=== PATIENT | female | born 1935 | race Caucasian/White ===

== ENCOUNTER 2017-01-11 13:39 | Emergency (ER) | payer OTHER, MEDICARE ==
[2017-01-11 13:49] VITALS: BP 111/60; PULSE 72; TEMP 98.1; BMI 27.5
--- NOTE | 2017-01-11 15:25 | PDOC ---
History of Present Illness - General Chief Complaint: Injury Stated Complaint: INJURY Time Seen by Provider: 01/11/17 14:20 History Source: Patient Exam Limitations: No Limitations - History of Present Illness Initial Comments: 01/11/17 15:40 81 yr female tripped walking up steps last night and hit her left upper arm on the railing, her left hip, left knee and left side ribs. no LOC. pt denies SOB no chest pain . 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 Pt is ambulatory steady gait. Occurred: reports: yesterday Severity: reports: mild Past History - Past Medical History Allergies/Adverse Reactions: Allergies Allergy/AdvReac Type Severity Reaction Status Date / Time amoxicillin trihydrate Allergy Intermediate Rash Verified 01/11/17 13:47 [From Amoxil] levofloxacin [From Levaquin] Allergy Intermediate Rash Verified 01/11/17 13:47 sulfamethoxazole Allergy Intermediate Hives Verified 01/11/17 13:47 [From Bactrim] trimethoprim [From Bactrim] Allergy Intermediate Hives Verified 01/11/17 13:47 codeine [Codeine] AdvReac Mild Nausea Verified 01/11/17 13:47 cefuroxime axetil AdvReac Nausea Verified 01/11/17 13:47 [From Ceftin] Home Medications: Ambulatory Orders Aspirin [ASA -] 81 mg PO DAILY 10/17/14 Bupropion HCl [Wellbutrin -] 150 mg PO DAILY 10/17/14 Calcium Carbonate/Vitamin D3 [Calcium 600 + Vit D 200 Tablet] 1 each PO DAILY Lactobacillus Acidophilus [Probiotic] 1 cap PO DAILY 10/17/14 Levothyroxine [Synthroid -] 1 tab PO DAILY 10/17/14 Metoprolol Succinate [Toprol Xl] 25 mg PO DAILY 10/17/14 Raloxifene HCl [Evista] 1 tab PO DAILY 10/17/14 Tramadol HCl 50 mg PO TID PRN 10/17/14 Ranitidine [Zantac -] 150 mg PO BID #0 tablet 10/18/14 Cholecalciferol (Vitamin D3) [Vitamin D3 -] 1 unit PO DAILY 01/02/16 Multivitamins [Tab-A-Vit -] 1 tab PO DAILY 01/02/16 Pantoprazole Sodium [Protonix] 40 mg PO DAILY 01/02/16 Anemia: No Asthma: No Cancer: No Cardiac Disorders: Yes CVA: No COPD: No CHF: No Dementia: No Diabetes: No GI Disorders: Yes (H.PYLORI GASTRITIS,DIVERTICULOSIS) Disorders: No HTN: Yes Hypercholesterolemia: No Liver Disease: No Seizures: No Thyroid Disease: Yes (HYPOTHYROIDISM) - Surgical History Abdominal Surgery: No Appendectomy: Yes Cardiac Surgery: Yes (CARDIAC CATHERIZATION-NEGATIVE) Cholecystectomy: No Lung Surgery: No Neurologic Surgery: No Orthopedic Surgery: No - Immunization History Immunization Up to Date: Yes - Suicide/Smoking/Psychosocial Hx Smoking Status: No Smoking History: Never smoked Have you smoked in the past 12 months: No Number of Cigarettes Smoked Daily: 0 Hx Alcohol Use: No Drug/Substance Use Hx: No Substance Use Type: None Hx Substance Use Treatment: No Trauma Specific PMHX - Complaint Specific PMHX Arthritis: No Back Injury: Yes Review of Systems - Review of Systems Able to Perform ROS?: Yes Is the patient limited Tajik proficient: No Constitutional: No: Symptoms Reported HEENTM: No: Symptoms Reported Respiratory: No: Symptoms reported Cardiac (ROS): No: Symptoms Reported ABD/GI: No: Symptoms Reported : No: Symptoms Reported Musculoskeletal: Yes: Symptoms Reported *Physical Exam - Vital Signs Last Vital Signs Temp Pulse Resp BP Pulse Ox 98.1 F 72 18 111/60 98 01/11/17 13:47 01/11/17 13:47 01/11/17 13:47 01/11/17 13:47 01/11/17 13:47 - Physical Exam General Appearance: Yes: Nourished, Appropriately Dressed HEENT: positive: EOMI, [place], Normal ENT Inspection, TMs Normal, Pharynx Normal Neck: positive: Supple Respiratory/Chest: positive: Lungs Clear, Normal Breath Sounds. negative: Chest Tender, Decreased Breath Sounds, Rhonchi, Stridor, Wheezing Cardiovascular: positive: Regular Rhythm, Regular Rate Gastrointestinal/Abdominal: positive: Normal Bowel Sounds, Soft Musculoskeletal: positive: Normal Inspection Extremity: positive: Normal Capillary Refill, Normal Inspection, Normal Range of Motion, Tender (left upper arm humeral head, limited ROM due to pain, nv intact no crepitus ) Integumentary: positive: Normal Color, Dry, Warm Neurologic: positive: Fully Oriented, Alert, Normal Mood/Affect, Normal Response , Motor Strength 5/5 Procedures - Splinting Sling: Yes ED Treatment Course - RADIOLOGY Radiology Studies Ordered: Category Date Time Status HIP & PELVIS-LEFT [RAD] Stat Radiology 01/11/17 14:42 Completed HUMERUS-LEFT [RAD] Stat Radiology 01/11/17 14:42 Completed KNEE 3 POS-LEFT [RAD] Stat Radiology 01/11/17 14:42 Completed RIBS-LEFT SIDE [RAD] Stat Radiology 01/11/17 14:42 Completed Medical Decision Making - Medical Decision Making 01/11/17 15:42 cc: trip and fall yesterday no LOC no dizzyness will xray r/o fracture sling to the left arm *DC/Admit/Observation/Transfer Diagnosis at time of Disposition: Contusion Qualifiers: Encounter type: initial encounter Contusion area: upper arm Laterality: left Qualified Code(s): S40.022A - Contusion of left upper arm, initial encounter - Discharge Dispostion Disposition: HOME Condition at time of disposition: Good - Referrals Referrals: Dario Varner MD [Primary Care Provider] - - Patient Instructions Additional Instructions: follow with your doctor in 1-2 days for follow up apply ice to the shoulder every 2hrs for 20 minutes take pain medicine as directed you can also apply a topical cream such as Icy Hot this is helpful with muscle soreness and pain
== END 2017-01-11 15:25 | disposition home or self-care (01) ==
LOC: JERFT 13:39
DX: S40.022A Contusion of left upper arm, initial encounter (principal); W10.8XXA Fall (on) (from) other stairs and steps, initial encounter; Y93.89 Activity, other specified; Y92.018 Other place in single-family (private) house as the place of occurrence of the external cause; Y99.8 Other external cause status; I10 Essential (primary) hypertension; E03.9 Hypothyroidism, unspecified; Z87.19 Personal history of other diseases of the digestive system; Z98.61 Coronary angioplasty status
CPT/HCPCS: 71101-TC; 73060-TC-LT; 73523-TC; 73562-TC-LT; 99281-25

== ENCOUNTER 2017-11-06 16:17 | Emergency (ER) | payer OTHER, MEDICARE ==
--- NOTE | 2017-11-06 16:45 | PDOC ---
Rapid Medical Evaluation Chief Complaint: Eye Problem Time Seen by Provider: 11/06/17 16:43 Medical Evaluation: Allergies Allergy/AdvReac Type Severity Reaction Status Date / Time amoxicillin trihydrate Allergy Intermediate Rash Verified 11/06/17 16:42 [From Amoxil] levofloxacin [From Levaquin] Allergy Intermediate Rash Verified 11/06/17 16:42 sulfamethoxazole Allergy Intermediate Hives Verified 11/06/17 16:42 [From Bactrim] trimethoprim [From Bactrim] Allergy Intermediate Hives Verified 11/06/17 16:42 codeine [Codeine] AdvReac Mild Nausea Verified 11/06/17 16:42 cefuroxime axetil AdvReac Nausea Verified 11/06/17 16:42 [From Ceftin] 11/06/17 16:43 I have performed a brief in-person evaluation of this patient. The patient presents with a chief complaint of: Double vision to R eye suddenly last night, since improved but eye "feels funny". No eye pain, JONES, dizziness, n/ v or focal weakness. H/o CAD, s/p b/l cataract surgery >5 years ago Pertinent physical exam findings:? R lid ptosis, no conjunctivitis erythema or hard eye on palpation, EOMI, non-focal I have ordered the following:CTH/labs The patient will proceed to the ED for further evaluation Discharge Disposition - Diagnosis Double vision - Referrals - Patient Instructions - Post Discharge Activity
[2017-11-06 16:46] VITALS: BMI 27.3
[2017-11-06 17:24] LABS: BASO % 0.7 % (0-2.0); EOS % 2.5 % (0-4.5); HEMATOCRIT 34.3 % (32.4-45.2); HEMOGLOBIN 11.8 GM/dL (10.7-15.3); MCH 32.7 pg (25.7-33.7); MCHC 34.4 g/dl (32.0-36.0); MEAN CELL VOLUME 95.2 fl (80-96); MEAN PLT VOLUME 7.7 fl (7.5-11.1); MONO % 10.2 % (3.8-10.2); NEUT % 71.6 % (42.8-82.8); PLATELET COUNT 228 K/MM3 (134-434); RDW 12.8 % (11.6-15.6); WHITE BLOOD COUNT 6.7 K/mm3 (4.0-10.0)
--- NOTE | 2017-11-06 17:47 | PDOC ---
History of Present Illness - General Chief Complaint: Eye Problem Stated Complaint: EYE PROBLEMS Time Seen by Provider: 11/06/17 16:43 - History of Present Illness Initial Comments: The patient is an 82F with a history of HTN, CAD, and b/l cataract surgery >5y ago who presents for evaluation for right sided painless vertical diplopia which was sudden in onset last night. She states that this has never happened before and had resolved when she woke up this morning. She endorses feeling right eye drooping sensation but denies ptosis. She denies ocular pain, blurry vision, JONES, trauma/fall, fevers/chills, or recent sick contacts. She denies a history of stroke or IA. She also denies DM or history of blood clots Her PCP is Dr. Varner. Her Cariologist is Dr. Sanz. 11/06/17 17:44 Past History - Past Medical History Allergies/Adverse Reactions: Allergies Allergy/AdvReac Type Severity Reaction Status Date / Time amoxicillin trihydrate Allergy Intermediate Rash Verified 11/06/17 16:42 [From Amoxil] levofloxacin [From Levaquin] Allergy Intermediate Rash Verified 11/06/17 16:42 sulfamethoxazole Allergy Intermediate Hives Verified 11/06/17 16:42 [From Bactrim] trimethoprim [From Bactrim] Allergy Intermediate Hives Verified 11/06/17 16:42 codeine [Codeine] AdvReac Mild Nausea Verified 11/06/17 16:42 cefuroxime axetil AdvReac Nausea Verified 11/06/17 16:42 [From Ceftin] Home Medications: Ambulatory Orders Aspirin [ASA -] 81 mg PO DAILY 10/17/14 Bupropion HCl [Wellbutrin -] 150 mg PO DAILY 10/17/14 Lactobacillus Acidophilus [Probiotic] 1 cap PO DAILY 10/17/14 Levothyroxine [Synthroid -] 1 tab PO DAILY 10/17/14 Tramadol HCl 50 mg PO TID PRN 10/17/14 Ranitidine [Zantac -] 150 mg PO BID #0 tablet 10/18/14 Cholecalciferol (Vitamin D3) [Vitamin D3 -] 1 unit PO DAILY 01/02/16 Ascorbic Acid [Vitamin C] 500 mg PO DAILY 11/06/17 Gabapentin 100 mg PO TID 11/06/17 Multivit-Min/Iron/Folic/Lutein [Centrum Silver Women Tablet] 1 each PO DAILY Anemia: No Asthma: No Cancer: No Cardiac Disorders: Yes (H/O SOB, CHRONIC COUGH) CVA: No COPD: No CHF: No Dementia: No Diabetes: No GI Disorders: Yes (H.PYLORI GASTRITIS,DIVERTICULOSIS) Disorders: No HTN: Yes Hypercholesterolemia: No Liver Disease: No Seizures: No Thyroid Disease: Yes (HYPOTHYROIDISM) - Surgical History Abdominal Surgery: No Appendectomy: Yes Cardiac Surgery: Yes (CARDIAC CATHERIZATION-NEGATIVE) Cholecystectomy: No Lung Surgery: No Neurologic Surgery: No Orthopedic Surgery: No - Immunization History Immunization Up to Date: Yes - Suicide/Smoking/Psychosocial Hx Smoking Status: No Smoking History: Never smoked Have you smoked in the past 12 months: No Number of Cigarettes Smoked Daily: 0 Hx Alcohol Use: Yes Drug/Substance Use Hx: No Substance Use Type: None Hx Substance Use Treatment: No Review of Systems - Review of Systems Comments:: GENERAL/CONSTITUTIONAL: No fever or chills. No weakness. HEAD, EYES, EARS, NOSE AND THROAT: per HPI and no ear pain or discharge. No sore throat. CARDIOVASCULAR: No chest pain or shortness of breath RESPIRATORY: No cough, wheezing, or hemoptysis. GASTROINTESTINAL: No nausea, vomiting, diarrhea or constipation. GENITOURINARY: No dysuria, frequency, or change in urination. MUSCULOSKELETAL: No joint or muscle swelling or pain. No neck or back pain. SKIN: No rash NEUROLOGIC: No headache, vertigo, loss of consciousness, or change in strength/ sensation. ENDOCRINE: No increased thirst. No abnormal weight change HEMATOLOGIC/LYMPHATIC: No anemia, easy bleeding, or history of blood clots. ALLERGIC/IMMUNOLOGIC: No hives or skin allergy. 11/06/17 18:09 *Physical Exam - Vital Signs Last Vital Signs Temp Pulse Resp BP Pulse Ox 98.7 F 85 18 117/62 94 L 11/06/17 16:43 11/06/17 16:43 11/06/17 16:43 11/06/17 16:43 11/06/17 16:43 - Physical Exam Comments: GENERAL: Awake, alert, and fully oriented, in no acute distress HEAD: No signs of trauma, normocephalic, atraumatic EYES: PERRLA, EOMI, sclera anicteric, conjunctiva clear, Vision acuity is: OD 20 /20 OS: 20/15; no nystagmus ENT: Hearing grossly normal, nares patent, oropharynx clear without exudates. Moist mucosa NECK: Normal ROM, supple LUNGS: No distress, speaks full sentences, clear to auscultation bilaterally HEART: Regular rate and rhythm, normal S1 and S2, no murmurs appreciated, peripheral pulses normal and equal bilaterally. ABDOMEN: Soft, nontender, normoactive bowel sounds. No guarding, no rebound. EXTREMITIES : Normal inspection, Normal range of motion, no edema. No clubbing or cyanosis. NEUROLOGICAL: Cranial nerves II through XII intact. Normal speech, normal gait , no focal sensorimotor deficits SKIN: Warm, Dry 11/06/17 18:06 Procedures - Bedside Ultrasound Bedside Ultrasound: Ocular ED Treatment Course - LABORATORY CBC & Chemistry Diagram: 11/06/17 17:13 11/06/17 17:13 - ADDITIONAL ORDERS Additional order review: 11/06/17 17:13 RBC 3.60 MCV 95.2 MCHC 34.4 RDW 12.8 MPV 7.7 Neutrophils % 71.6 Lymphocytes % 15.0 Monocytes % 10.2 Eosinophils % 2.5 Basophils % 0.7 - RADIOLOGY Radiology Studies Ordered: Category Date Time Status BRAIN CTA [CT] Stat CT Scan 11/06/17 17:38 Ordered Medical Decision Making - Medical Decision Making The patient is an 82F with a history of HTN, CAD, and b/l cataract sx >5y ago who presents for evaluation of new, sudden onset, painless, R-sided vertical diplopia that had resolved when she awoke this morning. She denies any associated symptoms and states her vision is normal for her today. Her PCP is Dr. Varner. Her Cariologist is Dr. Sanz. Ddx: lens dislocation, TIA, embolic artery/vein occlusion, cataracts, astigmatism; less likely retinal detachment ED Course: CMP, CT Head, CT head angio Patient normotensive, and currently asymptomatic. 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 Schaffer and discussed the clinical presentation, work-up and ED course thus far. 11/06/17 19:30 *DC/Admit/Observation/Transfer Diagnosis at time of Disposition: Double vision - Discharge Dispostion Disposition: HOME Condition at time of disposition: Stable Decision to Admit order: No - Referrals Referrals: Aiden Fuller MD [Staff Physician] - - Patient Instructions Printed Discharge Instructions: Transient Ischemic Attack, DI for Visual Field Disturbances - Post Discharge Activity
[2017-11-06 17:55] LABS: ALBUMIN 3.5 g/dl (3.4-5.0); ALK PHOS 52 U/L (45-117); ANION GAP 6 (8-16); BILIRUBIN,TOTAL 0.3 mg/dL (0.2-1.0); BLOOD UREA NITROGEN 33 mg/dL (7-18); CALCIUM 9.3 mg/dL (8.5-10.1); CHLORIDE 109 mmol/L (98-107); CO2 29 mmol/L (21-32); CREATININE 1.3 mg/dL (0.55-1.02); GLUCOSE,RANDOM 114 mg/dL (74-106); POTASSIUM 4.4 mmol/L (3.5-5.1); SGOT/AST 21 U/L (15-37); SGPT/ALT 29 U/L (12-78); SODIUM 144 mmol/L (136-145)
[2017-11-06] MEDS ORDERED: SODIUM CHLORIDE 0.9% 500 ML INFUS.BAG IV ONE (18:54)
--- NOTE | 2017-11-06 20:05 | PDOC ---
*Physical Exam - Vital Signs Last Vital Signs Temp Pulse Resp BP Pulse Ox 98.7 F 85 18 117/62 94 L 11/06/17 16:43 11/06/17 16:43 11/06/17 16:43 11/06/17 16:43 11/06/17 16:43 ED Treatment Course - LABORATORY CBC & Chemistry Diagram: 11/06/17 17:13 11/06/17 17:13 - ADDITIONAL ORDERS Additional order review: Laboratory Results 11/06/17 17:13 Sodium 144 Potassium 4.4 Chloride 109 H Carbon Dioxide 29 Anion Gap 6 L BUN 33 H Creatinine 1.3 H Creat Clearance w eGFR 39.02 Random Glucose 114 H Calcium 9.3 Total Bilirubin 0.3 AST 21 ALT 29 Alkaline Phosphatase 52 Total Protein 6.0 L Albumin 3.5 11/06/17 17:13 RBC 3.60 MCV 95.2 MCHC 34.4 RDW 12.8 MPV 7.7 Neutrophils % 71.6 Lymphocytes % 15.0 Monocytes % 10.2 Eosinophils % 2.5 Basophils % 0.7 - Medications Given in the ED: ED Medications Discontinued Medications Generic Name Dose Route Start Last Admin Trade Name Freq PRN Reason Stop Dose Admin Sodium Chloride 500 ml 11/06/17 18:54 11/06/17 19:15 Normal Saline - IV 11/06/17 18:55 500 ml ONCE ONE Administration Medical Decision Making - Medical Decision Making 11/06/17 20:05 Care taken over from Dr. Lee for further evaluation. 11/06/17 20:16 CT/CTA head negative for acute process. Discussed patient with Dr. Fuller ( neurology) who will evaluate outpatient. Discharging to home. *DC/Admit/Observation/Transfer Diagnosis at time of Disposition: Double vision - Discharge Dispostion Disposition: HOME Condition at time of disposition: Stable - Referrals Referrals: Aiden Fuller MD [Staff Physician] - - Patient Instructions Printed Discharge Instructions: Transient Ischemic Attack, DI for Visual Field Disturbances Additional Instructions: Please call Dr. Fuller's office on Thursday to make an appointment for follow- up. Return to ER if any fever, chills, return of double vision, altered mental status, or other concerning symptoms. - Post Discharge Activity
[2017-11-06 20:32] VITALS: BP 143/71; PULSE 72; TEMP 98.5
--- NOTE | 2017-11-06 21:51 | PDOC ---
Attending Attestation - Resident Resident Name: Alli Lee - ED Attending Attestation I have performed the following: I have examined & evaluated the patient, The case was reviewed & discussed with the resident, I agree w/resident's findings & plan, Exceptions are as noted - HPI HPI: 11/06/17 21:49 Ms. Sofia Morris is an 82-year-old female with past medical history of hypothyroidism, HTN (No medication use), GERD, compression fracture of the spine and CAD (awaiting stents) presents to the emergency department for resolved transient right diplopia yesterday. The patient reports a brief 15-20 minute episode of monocular R. eye diplopia last night while watching television. The patient states the episode was accompanied by the sensation of eye drooping, Denies a headache, dizziness or vertigo. The patient reports she has an appointment with an Stone Spreader Operator Dr. Villavicencio Thursday (11/09/2017). Denies history of stroke. Denies tremors. Denies eye pain. Denies Tinnitus. Denies vision loss. Denies history of blood clot. Denies fever, chest pain or shortness of breath. Denies nausea or vomiting. Allergies: amoxicillin trihydrate, levofloxacin, sulfamethoxazole, trimethoprim , codeine, and cefuroxime axetil Surgical history: Bilateral cataract surgery (5 years ago) and Negative cardiac cath. PCP: Dr. Varner Small Engine Trainer: Dr. Sanz Opthamologist: Dr. Dubose. - Physicial Exam PE: 11/06/17 21:49 General: Well appearing, awake and alert, NAD. HEENT: No nystagmus. (+) No diplopia on exam. (+) Visual acuity test: R. eye: 20 /15. L. eye: 20/20. NCAT, PERRL, EOMI, clear conjunctiva, anicteric, moist mucus membranes, clear oropharynx, no oral lesions.. Neck: neck supple, FROM Resp: CTAB, normal and even respirations, no respiratory distress CVS: RRR, no murmurs, 2+ peripheral pulses throughout, no peripheral edema Abdomen: soft, NTND, no peritoneal signs. Back: nontender, normal inspection and ROM MSK: no edema, OWEN x4, ROM intact. No clubbing or cyanosis. normal bulk and tone. Neuro: Alert, oriented to person time and place. CN II-XII grossly intact. Strength prox and distally 5/5 throughout. Sensation grossly intact to light touch. OWEN x4. No cerebellar signs, no dysmetria, bilateral finger to nose and heel to valdes equal and symmetric. Speech clear. Skin: warm and well perfused, cap refill <2 sec, normal color; no rash - Medical Decision Making 11/06/17 21:45 A portion of this note was documented by scribe services under my direction. I have reviewed the details of the note, within reason, and agree with the documentation with the following case summary and management plan written by me. MDM: Sofia Morris 82 YOF with PMHx HTN, hypothyroidism presenting with transient right monocular diplopia yesterday lasting 15 minutes; no fevers, weakness, tinnitis, dizziness, JONES, cp, sob, n/v. DDx. CVA, peripheral diplopia, monocular diplopia. Retinal detachment Bedside ocular US for diplopia, right eye sagittal and TV views; no retinal or vitreous detachment, normal EOMI. impression: no acute findings Neuro cs for possible TIA/transient diplopia but visual acuity intact currently. CTA to r/o ischemia or vascular pathology. Has ophtho followup scheduled with Dr. Dubose on Thursday, for evaluation of monocular diplopia since resolved. CT/CTA head negative for acute process. Discussed patient with Dr. Fuller ( neurology) who will evaluate outpatient. Discharging to home. Dr. Fuller neuro outpatient followup provided. return precautions discussed. ok for discharge, well appearing and no acute neuro deficits noted, gait stable, no cerebellar signs and CT results discussed.. 11/06/17 21:49
== END 2017-11-06 20:40 | disposition home or self-care (01) ==
LOC: JER 16:17
PROC: 4A07X0Z Measurement of Visual Acuity, External Approach (ICD-10-PCS; principal; 2017-11-06)
DX: H53.2 Diplopia (principal); I10 Essential (primary) hypertension; Z98.61 Coronary angioplasty status; E03.9 Hypothyroidism, unspecified; Z87.19 Personal history of other diseases of the digestive system; Z88.8 Allergy status to other drugs, medicaments and biological substances
CPT/HCPCS: 36415; 70450-TC; 70496-TC; 80053; 85025; 99173; 99282-25

== ENCOUNTER 2017-12-26 17:09 | Emergency (ER) | payer OTHER, MEDICARE ==
[2017-12-26 17:16] VITALS: BP 162/68; PULSE 68; TEMP 98; BMI 27.9
--- NOTE | 2017-12-26 17:39 | PDOC ---
History of Present Illness - General Chief Complaint: Injury Stated Complaint: FALL, ELBOW AND HEAD PAIN Time Seen by Provider: 12/26/17 17:39 History Source: Patient Exam Limitations: No Limitations - History of Present Illness Initial Comments: 12/26/17 20:13 Ms. Black is a 82 yo F with a hx of hypothyroidism, HTN, GERD, CAD, and a hx of compression fracture in thoracic spine presents to the emergency department s /p mechanical fall at 3:45 pm. She states she was ironing in the kitchen and sat down backwards with the lulu sliding from underneath. She struck the right occipital portion of her head on tile floor and landed on her left side. She denies pain throughout her body except having a headache and new tenderness in the C7-T1 region. Denies having fevers, chills, palpitations, chest pain, SOB, nausea, vomiting and LOC prior and post the mechanical fall. Past History - Past Medical History Allergies/Adverse Reactions: Allergies Allergy/AdvReac Type Severity Reaction Status Date / Time amoxicillin trihydrate Allergy Intermediate Rash Verified 12/26/17 17:16 [From Amoxil] levofloxacin [From Levaquin] Allergy Intermediate Rash Verified 12/26/17 17:16 sulfamethoxazole Allergy Intermediate Hives Verified 12/26/17 17:16 [From Bactrim] trimethoprim [From Bactrim] Allergy Intermediate Hives Verified 12/26/17 17:16 codeine [Codeine] AdvReac Mild Nausea Verified 12/26/17 17:16 cefuroxime axetil AdvReac Nausea Verified 12/26/17 17:16 [From Ceftin] Home Medications: Ambulatory Orders Aspirin [ASA -] 81 mg PO DAILY 10/17/14 Bupropion HCl [Wellbutrin -] 150 mg PO DAILY 10/17/14 Lactobacillus Acidophilus [Probiotic] 1 cap PO DAILY 10/17/14 Levothyroxine [Synthroid -] 1 tab PO DAILY 10/17/14 Tramadol HCl 50 mg PO TID PRN 10/17/14 Ranitidine [Zantac -] 150 mg PO BID #0 tablet 10/18/14 Cholecalciferol (Vitamin D3) [Vitamin D3 -] 1 unit PO DAILY 01/02/16 Ascorbic Acid [Vitamin C] 500 mg PO DAILY 11/06/17 Gabapentin 100 mg PO TID 11/06/17 Multivit-Min/Iron/Folic/Lutein [Centrum Silver Women Tablet] 1 each PO DAILY Clopidogrel Bisulfate [Plavix] 75 mg PO DAILY 12/26/17 Nebivolol HCl [Bystolic] 5 mg PO BID 12/26/17 Anemia: No Asthma: No Cancer: No Cardiac Disorders: Yes (H/O SOB, CHRONIC COUGH) CVA: No COPD: No CHF: No Dementia: No Diabetes: No GI Disorders: Yes (H.PYLORI GASTRITIS,DIVERTICULOSIS) Disorders: No HTN: Yes Hypercholesterolemia: No Liver Disease: No Seizures: No Thyroid Disease: Yes (HYPOTHYROIDISM) - Surgical History Abdominal Surgery: No Appendectomy: Yes Cardiac Surgery: Yes (CARDIAC CATHERIZATION-NEGATIVE) Cholecystectomy: No Lung Surgery: No Neurologic Surgery: No Orthopedic Surgery: No - Immunization History Immunization Up to Date: Yes - Suicide/Smoking/Psychosocial Hx Smoking Status: No Smoking History: Never smoked Have you smoked in the past 12 months: No Number of Cigarettes Smoked Daily: 0 Hx Alcohol Use: Yes Drug/Substance Use Hx: No Substance Use Type: None Hx Substance Use Treatment: No Review of Systems - Review of Systems Able to Perform ROS?: Yes Constitutional: No: Chills, Diaphoresis, Fever HEENTM: No: Eye Pain, Recent change in vision, Ear Pain, Nose Pain, Throat Pain , Mouth Pain Respiratory: No: Cough, Shortness of Breath, SOB with Exertion, Hemoptysis Cardiac (ROS): No: Chest Pain, Edema, Irregular Heart Rate, Lightheadedness, Palpitations, Syncope, Chest Tightness ABD/GI: No: Constipated, Diarrhea, Nausea, Rectal Bleeding, Vomiting, Abdominal cramping, Tarry Stools : No: Burning, Dysuria, Flank Pain, Hematuria Musculoskeletal: Yes: Back Pain, Neck Pain. No: Joint Pain, Muscle Pain Integumentary: No: Bruising, Dryness, Erythema, Rash Neurological: Yes: Headache. No: Numbness, Paresthesia, Seizure, Tingling, Tremors, Weakness, Unsteady Gait, Ataxia, Dizziness Psychiatric: No: Stressors Endocrine: No: Increased Hunger Hematologic/Lymphatic: No: Anemia *Physical Exam - Vital Signs Last Vital Signs Temp Pulse Resp BP Pulse Ox 98 F 68 18 162/68 97 12/26/17 17:12 12/26/17 17:12 12/26/17 17:12 12/26/17 17:12 12/26/17 17:12 - Physical Exam General Appearance: Yes: Nourished, Appropriately Dressed HEENT: positive: EOMI, BERLIN, Normal ENT Inspection, Normal Voice, Symmetrical, TMs Normal, Pharynx Normal. negative: TM Bulging Neck: positive: Trachea midline. negative: Lymphadenopathy (R), Lymphadenopathy (L) Respiratory/Chest: positive: Lungs Clear, Normal Breath Sounds. negative: Chest Tender, Respiratory Distress, Accessory Muscle Use, Rales, Stridor, Wheezing, Hyperresonant, Dullness Cardiovascular: positive: Regular Rhythm, Regular Rate, S1, S2. negative: JVD, Systolic Murmur Vascular Pulses: Dorsalis-Pedis (R): 3+, Doralis-Pedis (L): 3+ Gastrointestinal/Abdominal: positive: Normal Bowel Sounds. negative: Tender Lymphatic: negative: Adenopathy Musculoskeletal: positive: Normal Inspection, Vertebral Tenderness (C7-T1.). negative: CVA Tenderness, Decreased Range of Motion Extremity: positive: Normal Capillary Refill, Normal Inspection, Normal Range of Motion, Pelvis Stable. 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 There is no evidence of acute fracture. Initially, she had no tenderness to palpation in the vertebral column except for C7-T1. No lumbar-sacral tenderness. On reassessment she states she feels fine and her neuro exam continued to be within normal limits. She agreed to follow up with her primary medical doctor. Dispo: DC to home *DC/Admit/Observation/Transfer Diagnosis at time of Disposition: Fall Qualifiers: Encounter type: initial encounter Qualified Code(s): W19.XXXA - Unspecified fall, initial encounter - Discharge Dispostion Disposition: HOME Decision to Admit order: No - Referrals Referrals: Dario Varner MD [Primary Care Provider] - - Patient Instructions Printed Discharge Instructions: How to Prevent Falls Additional Instructions: You have been seen in the emergency department after a fall that occurred in your household. Your CT head, neck, and back were negative for an acute fracture and head bleed. Please follow up with your primary medical doctor within 24-36 hours for additional care and follow up. This is important to your care and it is not considered complete until this is done. Please return to the emergency department if you experience new concerning symptoms such as worsening headaches, changing in vision, and weakness. Thank you. - Post Discharge Activity
--- NOTE | 2017-12-26 20:30 | PDOC ---
Attending Attestation - Resident Resident Name: Jose Tillman - ED Attending Attestation I have performed the following: I have examined & evaluated the patient, The case was reviewed & discussed with the resident, I agree w/resident's findings & plan, Exceptions are as noted - HPI HPI: 12/26/17 20:30 82 F with hypothyroidism, HTN, GERD, compression fracture of the spine and CAD, presenting to ED after slipping and falling. Pt states that she tripped, falling backwards and hitting the back of her head against the stove. Pt denies LOC. Pt states that she was able to get up on her own. Endorses some mild upper back pain but otherwise feels well. Pt denies CP/SOB/lightheadedness prior to falling. - Physicial Exam PE: 12/26/17 20:33 GENERAL: Awake, alert, and fully oriented, in no acute distress. HEAD: No signs of trauma EYES: PERRLA, EOMI, sclera anicteric, conjunctiva clear ENT: Auricles normal inspection, hearing grossly normal, nares patent, oropharynx clear without exudates. Moist mucosa NECK: Nontender, no stepoffs, Normal ROM, supple, no lymphadenopathy, JVD, or masses LUNGS: Breath sounds equal, clear to auscultation bilaterally. No wheezes, and no crackles HEART: Regular rate and rhythm, normal S1 and S2, no murmurs, rubs or gallops ABDOMEN: Soft, nontender, normoactive bowel sounds. No guarding, no rebound. No masses BACK: no midline TTP, no stepoffs EXTREMITIES: Normal range of motion, no edema. No clubbing or cyanosis. No cords, erythema, or tenderness NEUROLOGICAL: Cranial nerves II through XII intact. 5/5 strength and sensation in all extremities, Normal speech, normal gait, normal cerebellar function SKIN: Warm, Dry, normal turgor, no rashes or lesions noted. - Medical Decision Making 12/26/17 20:34 82 F with back pain after mechanical fall. - CT head/c-spine - CT T spine 12/26/17 20:35 CTs unremarkable other than known compression fx at T10. Pt ambulatory in ED without issue. Pt states she feels well, has no pain at this time. BP slightly elevated in ED. Discussed with pt, who states she has cardiology f/ u next week to address this issue. Pt is well appearing, with normal vitals. Clinically stable for DC at this time. I discussed the physical exam findings, ancillary test results and final diagnoses with the patient. I answered all of the patient's questions. The patient was satisfied with the care received and felt comfortable with the discharge plan and treatment plan. The patient agrees to follow up with the primary care physician within 24-72 hours.
== END 2017-12-26 20:44 | disposition home or self-care (01) ==
LOC: JER 17:09
DX: G44.319 Acute post-traumatic headache, not intractable (principal); W01.198A Fall on same level from slipping, tripping and stumbling with subsequent striking against other object, initial encounter; Y93.E4 Activity, ironing; Y92.010 Kitchen of single-family (private) house as the place of occurrence of the external cause; Y99.8 Other external cause status; I25.10 Atherosclerotic heart disease of native coronary artery without angina pectoris; Z98.61 Coronary angioplasty status; I10 Essential (primary) hypertension; K21.9 Gastro-esophageal reflux disease without esophagitis; E03.9 Hypothyroidism, unspecified; Z87.81 Personal history of (healed) traumatic fracture; Z88.8 Allergy status to other drugs, medicaments and biological substances
CPT/HCPCS: 70450-TC; 72125-TC; 72128-TC; 99282-25

== ENCOUNTER 2017-12-29 13:41 | Emergency (ER) | payer OTHER, MEDICARE ==
[2017-12-29 13:49] VITALS: PULSE 68; TEMP 98.1; BMI 27.7
--- NOTE | 2017-12-29 14:27 | PDOC ---
History of Present Illness - General Chief Complaint: Injury Stated Complaint: INJURY Time Seen by Provider: 12/29/17 14:20 - History of Present Illness Initial Comments: 12/29/17 14:41 The patient is an 82 year old female with a history of HTN, CAD s/p stenting on plavix who presents for evaluation following a fall. The patient reports that she was walking down a step driveway while it was raining and slipped and fell backwards striking her head on the ground. She reports bleeding from her scalp currently reports a mild headache and some right elbow pain. She denies LOC or other injuries. She otherwise denies fevers, chills, neck pain, chest pain, SOB , nausea, vomiting, abdominal pain, numbness, tingling, weakness, or changes with urination or bowel movements. Past History - Past Medical History Allergies/Adverse Reactions: Allergies Allergy/AdvReac Type Severity Reaction Status Date / Time amoxicillin trihydrate Allergy Intermediate Rash Verified 12/29/17 13:45 [From Amoxil] levofloxacin [From Levaquin] Allergy Intermediate Rash Verified 12/29/17 13:45 sulfamethoxazole Allergy Intermediate Hives Verified 12/29/17 13:45 [From Bactrim] trimethoprim [From Bactrim] Allergy Intermediate Hives Verified 12/29/17 13:45 codeine [Codeine] AdvReac Mild Nausea Verified 12/29/17 13:45 cefuroxime axetil AdvReac Nausea Verified 12/29/17 13:45 [From Ceftin] Home Medications: Ambulatory Orders Aspirin [ASA -] 81 mg PO DAILY 10/17/14 Bupropion HCl [Wellbutrin -] 150 mg PO DAILY 10/17/14 Lactobacillus Acidophilus [Probiotic] 1 cap PO DAILY 10/17/14 Levothyroxine [Synthroid -] 1 tab PO DAILY 10/17/14 Tramadol HCl 50 mg PO TID PRN 10/17/14 Ranitidine [Zantac -] 150 mg PO BID #0 tablet 10/18/14 Cholecalciferol (Vitamin D3) [Vitamin D3 -] 1 unit PO DAILY 01/02/16 Ascorbic Acid [Vitamin C] 500 mg PO DAILY 11/06/17 Gabapentin 100 mg PO TID 11/06/17 Multivit-Min/Iron/Folic/Lutein [Centrum Silver Women Tablet] 1 each PO DAILY Clopidogrel Bisulfate [Plavix] 75 mg PO DAILY 12/26/17 Nebivolol HCl [Bystolic] 5 mg PO BID 12/26/17 Anemia: No Asthma: No Cancer: No Cardiac Disorders: Yes (H/O SOB, CHRONIC COUGH) CVA: No COPD: No CHF: No Dementia: No Diabetes: No GI Disorders: Yes (H.PYLORI GASTRITIS,DIVERTICULOSIS) Disorders: No HTN: Yes Hypercholesterolemia: No Liver Disease: No Seizures: No Thyroid Disease: Yes (HYPOTHYROIDISM) - Surgical History Abdominal Surgery: No Appendectomy: Yes Cardiac Surgery: Yes (CARDIAC CATHERIZATION-NEGATIVE) Cholecystectomy: No Lung Surgery: No Neurologic Surgery: No Orthopedic Surgery: No - Immunization History Immunization Up to Date: Yes - Suicide/Smoking/Psychosocial Hx Smoking Status: No Smoking History: Never smoked Have you smoked in the past 12 months: No Number of Cigarettes Smoked Daily: 0 Information on smoking cessation initiated: No Hx Alcohol Use: Yes Drug/Substance Use Hx: No Substance Use Type: None Hx Substance Use Treatment: No Review of Systems - Review of Systems Comments:: 12/29/17 14:45 Constitutional: No fevers, chills, fatigue, malaise HEENT: No Rhinorrhea, nasal congestion, visual changes Cardiovascular: No chest pain, syncope, palpitations, lightheadedness Respiratory: No Cough, SOB, Hemoptysis, Gastrointestinal: No Abdominal pain, Nausea, Vomiting, Constipation, Diarrhea, Melena Genitourinary: No Dysuria, Frequency, Urgency, Hesitancy, Hematuria, Flank pain Musculoskeletal: No Myalgia, arthralgia Skin: No rashes, itching, bruising, pallor Neurologic: Headache. No Dizziness, Numbness, Weakness, or Tingling Psychiatric: No Hallucinations. No SI or HI *Physical Exam - Vital Signs Last Vital Signs Temp Pulse Resp BP Pulse Ox 98.1 F 68 16 193/65 95 12/29/17 13:46 12/29/17 13:46 12/29/17 13:46 12/29/17 13:46 12/29/17 13:46 - Physical Exam Comments: 12/29/17 14:46 General Appearance: Nourished. No Apparent Distress HEENT: EOMI, BERLIN. Hematoma to the posterior scalp with blood noted to the scalp but no definable laceration. No Pharyngeal Erythema, Tonsillar Exudate, Tonsillar Erythema Neck: No Cervical Lymphadenopathy Respiratory/Chest: Lungs Clear, Normal Breath Sounds. No Crackles, Rales, Rhonchi, Wheezing Cardiovascular: Regular Rhythm, Regular Rate. No Murmur, Gallops, Rubs Gastrointestinal/Abdominal: Normal Bowel Sounds, Soft. No Guarding, Rebound, Tenderness Musculoskeletal: No CVA Tenderness Extremity: Full ROM of the right elbow. Sensation to light touch and temperature intact. 2+ radial pulses bilaterally. 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 Normal Finger to Nose and Heel to Becker Medical Decision Making - Medical Decision Making 12/29/17 14:48 The patient is an 82 year old female with a history of HTN, CAD s/p stenting on plavix who presents for evaluation following a fall. Differential includes but is not limited to: Fracture, Contusion, Intracranial process. Given the patient 's history and physical exam, we will obtain a head and cervical CT and an elbow plain film to evaluate further. We will continue to monitor and reassess while here in the ED. 12/29/17 17:[address] are unremarkable as read by our radiologist. The patient' s BP has improved to 189/78 with her home medication. Elbow plain film is unremarkable. The patient states that she has follow up scheduled tomorrow morning. We are comfortable discharging the patient home with primary care provider follow up. We discussed the results, plan, return precautions and proper wound care with the patient who voiced understanding and is agreeable with the plan. *DC/Admit/Observation/Transfer Diagnosis at time of Disposition: Fall Qualifiers: Encounter type: initial encounter Qualified Code(s): W19.XXXA - Unspecified fall, initial encounter - Discharge Dispostion Disposition: HOME Condition at time of disposition: Stable Decision to Admit order: No - Referrals Referrals: Dario Varner MD [Primary Care Provider] - - Patient Instructions Printed Discharge Instructions: DI for Post-traumatic Headache, DI for Abrasion Additional Instructions: Please return to the ER if you experience concerning or worsening symptoms including worsening difficulty breathing, weakness, or chest pain, fevers. Your imaging results were normal here in the ER. Your blood pressure was elevated here in the ED. Please continue to take your medication as directed and mention to your blood pressure management to your primary care provider. Please call to schedule a follow up appointment with your primary care provider within 2-3 days to discuss your ER visit and further management of your symptoms. - Post Discharge Activity
[2017-12-29] MEDS ORDERED: ACETAMINOPHEN 325 MG TABLET (FP) PO ONE (16:33)
--- NOTE | 2017-12-29 16:33 | PDOC ---
Attending Attestation - Resident Resident Name: Luis Manuel Dc - ED Attending Attestation I have performed the following: I have examined & evaluated the patient, The case was reviewed & discussed with the resident, I agree w/resident's findings & plan, Exceptions are as noted - HPI HPI: 12/29/17 16:29 82 F with h/o HTN, CAD s/p stent on plavix presenting to ED with head and elbow injury after slipping and falling. Pt states she was going up a wet driveway and slipped, landing backwards onto her elbow and head. Denies LOC. Now has pain in the top of her head. Denies N/V. Also has pain and bruising to her R elbow. Denies neck pain. Denies back pain. Denies CP/SOB. No abdominal pain. No hip or leg pain. - Physicial Exam PE: 12/29/17 16:30 "GENERAL: Awake, alert, and fully oriented, in no acute distress. HEAD: + abrasion to occiput, no laceration EYES: PERRLA, EOMI, sclera anicteric, conjunctiva clear ENT: Auricles normal inspection, hearing grossly normal, nares patent, oropharynx clear without exudates. Moist mucosa NECK: Nontender, no stepoffs, Normal ROM, supple, no lymphadenopathy, JVD, or masses LUNGS: Breath sounds equal, clear to auscultation bilaterally. No wheezes, and no crackles HEART: Regular rate and rhythm, normal S1 and S2, no murmurs, rubs or gallops ABDOMEN: Soft, nontender, normoactive bowel sounds. No guarding, no rebound. No masses EXTREMITIES: + ecchymosis and tenderness to R elbow, Normal range of motion, no edema. No clubbing or cyanosis. No cords, erythema, or tenderness NEUROLOGICAL: Cranial nerves II through XII intact. 5/5 strength and sensation in all extremities, Normal speech, normal gait, normal cerebellar function SKIN: Warm, Dry, normal turgor, no rashes or lesions noted." - Medical Decision Making 12/29/17 16:32 82 F with head injury and elbow pain s/p mechanical fall. Tdap up to date (last shot approx 3 years ago). Pt ambulatory in ED. - CT head/c-spine - XR R elbow Pt's vitals notable for elevated BP. Pt states she took her bystolic today. Denies CP/SOB. - Recheck vitals 12/29/17 16:59 Repeat BP still elevated Ordered home dose Bystolic. (Pt takes 5mg BID) 12/29/17 18:08 BP improving with home Bystolic. Pt to f/u with Dr. Sanz tomorrow in office. CT negative XR negative on my read Pt is well appearing. Clinically stable for DC at this time. I discussed the physical exam findings, ancillary test results and final diagnoses with the patient. I answered all of the patient's questions. The patient was satisfied with the care received and felt comfortable with the discharge plan and treatment plan. The patient agrees to follow up with the primary care physician within 24-72 hours.
[2017-12-29] MEDS ORDERED: ACETAMINOPHEN 325 MG TABLET (FP) ONE (16:37)
[2017-12-29] MEDS ORDERED: NEBIVOLOL 5 MG TABLET (FP) PO ONE (16:50)
[2017-12-29] MEDS ORDERED: BACITRACIN 15 GM TUBE TOPICAL OINTMENT TP ONE (18:00)
[2017-12-29] MEDS ORDERED: BACITRACIN 0.9 GM PACKET ONE (18:11)
[2017-12-29 18:30] VITALS: BP 189/78
== END 2017-12-29 18:25 | disposition home or self-care (01) ==
LOC: JER 13:41
DX: Z04.3 Encounter for examination and observation following other accident (principal); W18.39XA Other fall on same level, initial encounter; Y93.89 Activity, other specified; Y92.89 Other specified places as the place of occurrence of the external cause; I10 Essential (primary) hypertension; I25.10 Atherosclerotic heart disease of native coronary artery without angina pectoris; Z95.5 Presence of coronary angioplasty implant and graft; Z79.01 Long term (current) use of anticoagulants; E03.9 Hypothyroidism, unspecified
CPT/HCPCS: 70450-TC; 72125-TC; 73070-TC-RT-FY; 99281-25

== ENCOUNTER 2018-08-30 13:50 | Emergency (ER) | payer OTHER, MEDICARE ==
--- NOTE | 2018-08-30 15:26 | PDOC ---
History of Present Illness - General Chief Complaint: Injury Stated Complaint: FELL Time Seen by Provider: 08/30/18 15:13 History Source: Patient Exam Limitations: No Limitations - History of Present Illness Initial Comments: 08/30/18 15:16 83YOF with HTN, CAD s/p stent on plavix, hypothyroidism, and chronic back pain ( takes Tramadol) who p/w worsening hip pain and intermittent lightheadedness since suffering a ground-level fall three days ago. She notes having been going down the stairs on her electric stair climber when she accidentally stepped out of the chair before it was finished going down. She fell from about one step and landed forcefully on her right hip but also bumped the right back of her head. She denies losing consciousness, or any n/v, new vision change, new n/t/w , etc. However, since that time she has been intermittently lightheaded which is abnormal for her. She additionally has been having right lateral hip pain on weight bearing (none at rest). She has been taking her normal Tramadol and also Tylenol since the fall. Past History - Past Medical History Allergies/Adverse Reactions: Allergies Allergy/AdvReac Type Severity Reaction Status Date / Time amoxicillin trihydrate Allergy Intermediate Rash Verified 12/29/17 13:45 [From Amoxil] levofloxacin [From Levaquin] Allergy Intermediate Rash Verified 12/29/17 13:45 sulfamethoxazole Allergy Intermediate Hives Verified 12/29/17 13:45 [From Bactrim] trimethoprim [From Bactrim] Allergy Intermediate Hives Verified 12/29/17 13:45 codeine [Codeine] AdvReac Mild Nausea Verified 12/29/17 13:45 cefuroxime axetil AdvReac Nausea Verified 12/29/17 13:45 [From Ceftin] Home Medications: Ambulatory Orders Aspirin [ASA -] 81 mg PO DAILY 10/17/14 Bupropion HCl [Wellbutrin -] 150 mg PO DAILY 10/17/14 Lactobacillus Acidophilus [Probiotic] 1 cap PO DAILY 10/17/14 Levothyroxine [Synthroid -] 1 tab PO DAILY 10/17/14 Tramadol HCl 50 mg PO TID PRN 10/17/14 Ranitidine [Zantac -] 150 mg PO BID #0 tablet 10/18/14 Cholecalciferol (Vitamin D3) [Vitamin D3 -] 1 unit PO DAILY 01/02/16 Multivit-Min/Iron/Folic/Lutein [Centrum Silver Women Tablet] 1 each PO DAILY Clopidogrel Bisulfate [Plavix] 75 mg PO DAILY 12/26/17 Nebivolol HCl [Bystolic] 5 mg PO BID 12/26/17 Anemia: No Asthma: No Cancer: No Cardiac Disorders: Yes (H/O SOB, CHRONIC COUGH) CVA: No COPD: No CHF: No Dementia: No Diabetes: No GI Disorders: Yes (H.PYLORI GASTRITIS,DIVERTICULOSIS) Disorders: No HTN: Yes Hypercholesterolemia: No Liver Disease: No Seizures: No Thyroid Disease: Yes (HYPOTHYROIDISM) - Surgical History Abdominal Surgery: No Appendectomy: Yes Cardiac Surgery: Yes (CARDIAC CATHERIZATION-NEGATIVE) Cholecystectomy: No Lung Surgery: No Neurologic Surgery: No Orthopedic Surgery: No - Immunization History Immunization Up to Date: Yes - Suicide/Smoking/Psychosocial Hx Smoking Status: No Smoking History: Never smoked Have you smoked in the past 12 months: No Number of Cigarettes Smoked Daily: 0 Hx Alcohol Use: Yes Drug/Substance Use Hx: No Substance Use Type: None Hx Substance Use Treatment: No Trauma Specific PMHX - Complaint Specific PMHX Arthritis: No Back Injury: Yes Review of Systems - Review of Systems Able to Perform ROS?: Yes Comments:: GEN: no fever, chills, malaise, generalized weakness, or weight change HEENT: no ear pain, sore throat, vision change, or eye pain CV: no chest pain, palpitations, lightheadedness, syncope, or edema RESP: no cough, wheezing, or SOB GI: no abdominal pain, nausea, vomiting, diarrhea, constipation, or white/black/ bloody stool : no dysuria, hematuria, incontinence, retention, bleeding, or discharge MSK: hip pain, otherwise no neck/back pain or other MSK pain NEURO: mild intermittent lightheadedness, no headache, seizure, vertigo, numbness, tingling, or focal weakness PSYCH: no substance use, no behavior change SKIN: bruising, no jaundice, no rash ROS otherwise negative except as noted in HPI *Physical Exam - Vital Signs 08/30/18 17:21 Initial Vital Signs Temp Pulse Resp BP Pulse Ox 98.1 F 71 18 169/77 100 08/30/18 15:10 08/30/18 15:10 08/30/18 15:10 08/30/18 15:10 08/30/18 15:10 - Physical Exam Comments: GENERAL: well-appearing, A/Ox4, no distress, answers questions appropriately, daughter at bedside HEENT: PERRLA, EOMI, moist mucous membranes NECK/BACK: no midline ttp, no spinal stepoff or deformity, no hematoma, full ROM , neck supple CARDIOVASCULAR: regular rate/rhythm, normal S1S2, no MGR, strong peripheral pulses, capillary refill <2 seconds, extremities wwp, no edema LUNGS/RESPIRATORY: no respiratory distress, CTAB GI/ABDOMEN: symmetric [id number], normoactive BS, soft, no ttp, no midline pulsatile masses : no CVA tenderness EXTREMITIES: mild right lateral hip swelling in the setting of extensive ecchymosis as noted no muscle atrophy, no acute deformity, no edema SKIN: warm and dry, no pallor, no jaundice, no rash, no bruising, no skin breakdown, no cuts, no lesions NEUROLOGICAL: GCS 15, CN II-XII grossly intact, 5/5 strength proximally and distally, no facial droop ED Treatment Course - LABORATORY CBC & Chemistry Diagram: 08/30/18 16:30 08/30/18 16:30 Medical Decision Making - Medical Decision Making 08/30/18 15:13 Elderly female patient p/w GLF several days ago with subsequent hip pain which has been worsening. Initial Vital Signs Temp Pulse Resp BP Pulse Ox 98.1 F 169 H 18 169/77 100 08/30/18 15:10 08/30/18 15:10 08/30/18 15:10 08/30/18 15:10 08/30/18 15:10 Exam: As noted in Physical Exam section. DDX IBNLT: hip/pelvis/femur fxr, hip dislocation, thigh hematoma, compartment syndrome, sprain/strain, contusion, etc. W/U ordered: XR hip/pelvis/femur/knee CBCD CMP Cardiac Panel Coags T&S UA UCx EKG CXR TX ordered: IV Ofirmev. NPO until further notice. XR Right HipPlavis: No bony abnormality, nothing acute. XR Right Hand/Wrist: Nothing acute CT Head/C-Spine: Nothing acute Laboratory Tests 08/30/18 08/30/1808/30/19 16:30 16:30 16:30 WBC 6.5 RBC 3.30 L Hgb 10.3 L Hct 31.9 L MCV 96.9 H MCH 31.3 MCHC 32.3 RDW 12.7 Plt Count 289 MPV 7.8 Absolute Neuts (auto) 4.6 Neutrophils % 69.7 Lymphocytes % 17.6 Monocytes % 10.5 H Eosinophils % 1.5 Basophils % 0.7 PT with INR 11.7 INR 1.05 PTT (Actin FS) 25.6 Sodium 141 Potassium 4.6 Chloride 108 H Carbon Dioxide 24 Anion Gap 9 BUN 33 H Creatinine 0.9 Est GFR (CKD-EPI)AfAm 67.57 Est GFR (CKD-EPI)NonAf 58.30 Random Glucose 85 Calcium 9.1 Total Bilirubin 1.0 AST 27 ALT 20 Alkaline Phosphatase 60 Creatine Kinase Troponin I Total Protein 6.0 L Albumin 3.8 08/30/18 08/30/18 16:30 16:30 WBC RBC Hgb Hct MCV MCH MCHC RDW Plt Count MPV Absolute Neuts (auto) Neutrophils % Lymphocytes % Monocytes % Eosinophils % Basophils % PT with INR INR PTT (Actin FS) Sodium Potassium Chloride Carbon Dioxide Anion Gap BUN Creatinine Est GFR (CKD-EPI)AfAm Est GFR (CKD-EPI)NonAf Random Glucose Calcium Total Bilirubin AST ALT Alkaline Phosphatase Creatine Kinase 32 Troponin I < 0.03 Total Protein Albumin Reassessment: Patient passes road test without need for a cane. She states she is feeling better and wants to go home. Daughter is present to take her home. The patient has canes and crutches at home. DISCHARGE The Pt has gotten significant relief of symptoms while in the ED. They are appropriate for discharge with close outpatient follow up. The Pt is comfortable with this plan and will follow up with their primary care provider in 1-3 days. Specific return precautions are discussed and they will come back to the ER if necessary. *DC/Admit/Observation/Transfer Diagnosis at time of Disposition: Fall from ground level Traumatic ecchymosis of right thigh Qualifiers: Encounter type: initial encounter Qualified Code(s): S70.11XA - Contusion of right thigh, initial encounter - Discharge Dispostion Disposition: HOME Condition at time of disposition: Good Decision to Admit order: No - Referrals Referrals: Dario Varner MD [Primary Care Provider] - - Patient Instructions Additional Instructions: You were seen in the ER for a fall, a hip injury, and a head injury. We did labs and imaging studies, and after our assessment, we do not believe you are having a medical emergency at this time, and we believe you are safe to go home. Please follow up with your primary care provider in 1-3 days. Call their clinic as soon as possible, tell them you were seen in the ER, and tell them you need an appointment. If you have any new or worsening symptoms, please come back to the ER at any time (24 hours a day). Use a cane or crutches as needed and weight bear as tolerated. If you are having severe or life threatening symptoms, or symptoms that make it unsafe to drive or have someone drive you, please call 911. - Post Discharge Activity
[2018-08-30 15:37] VITALS: BP 169/77; TEMP 98.1; BMI 25.7
[2018-08-30 15:59] VITALS: PULSE 71
--- NOTE | 2018-08-30 16:01 | PDOC ---
Attending Attestation - Resident Resident Name: Courtney Bellamy - ED Attending Attestation I have performed the following: I have examined & evaluated the patient, The case was reviewed & discussed with the resident, I agree w/resident's findings & plan, Exceptions are as noted - HPI HPI: 08/30/18 18:57 Reviewed Residents HPI - Physicial Exam PE: 08/30/18 18:58 Reviewed Residents PE - Medical Decision Making 08/30/18 19:24 Ankle fall with hip pain. No acute fracture dislocation noted on x-rays. Bruising to right hip. Patient able to a bili comfortably no longer feels dizzy lightheaded Patient will follow up with her primary care provider this week. Findings, the need for follow-up and strict return instructions discussed patient.
[2018-08-30 16:58] LABS: BASO % 0.7 % (0-2.0); EOS % 1.5 % (0-4.5); HEMATOCRIT 31.9 % (32.4-45.2); HEMOGLOBIN 10.3 GM/dl (10.7-15.3); LYMPH % 17.6 % (8-40); MCH 31.3 pg (25.7-33.7); MCHC 32.3 g/dl (32.0-36.0); MEAN CELL VOLUME 96.9 fl (80-96); MEAN PLT VOLUME 7.8 fl (7.5-11.1); MONO % 10.5 % (3.8-10.2); NEUT % 69.7 % (42.8-82.8); PLATELET COUNT 289 K/MM3 (134-434); RDW 12.7 % (11.6-15.6); WHITE BLOOD COUNT 6.5 K/mm3 (4.0-10.8)
[2018-08-30 17:01] LABS: ACTIVATED PTT 25.6 SECONDS (25.2-36.5)
[2018-08-30 17:03] LABS: ALBUMIN 3.8 g/dl (3.4-5.0); CALCIUM 9.1 mg/dl (8.5-10); CREATININE 0.9 mg/dl (0.55-1.3); POTASSIUM 4.6 mmol/L (3.5-5.1)
[2018-08-30 17:06] LABS: INR 1.05 (0.82-1.09); PROTHROMBIN TIME (PATIENT) 11.7 SEC (10.2-13.0)
== END 2018-08-30 17:38 | disposition home or self-care (01) ==
LOC: FER 13:50
DX: S70.11XA Contusion of right thigh, initial encounter (principal); W18.39XA Other fall on same level, initial encounter; Y93.89 Activity, other specified; Y92.009 Unspecified place in unspecified non-institutional (private) residence as the place of occurrence of the external cause; I10 Essential (primary) hypertension; I25.10 Atherosclerotic heart disease of native coronary artery without angina pectoris; Z95.5 Presence of coronary angioplasty implant and graft; Z79.01 Long term (current) use of anticoagulants; E03.9 Hypothyroidism, unspecified; G89.29 Other chronic pain
CPT/HCPCS: 36415; 70450-TC; 72125-TC; 73110-TC-RT-FY; 73130-TC-RT-FY; 73523-TC-FY; 80053; 82550; 84484; 85025; 85610; 85730; 99282-25

== ENCOUNTER 2019-01-27 16:30 | Observation (INO) | payer OTHER, MEDICARE ==
--- NOTE | 2019-01-27 16:38 | PDOC ---
Rapid Medical Evaluation Chief Complaint: Chest Pain Time Seen by Provider: 01/27/19 16:35 Medical Evaluation: Allergies Allergy/AdvReac Type Severity Reaction Status Date / Time amoxicillin trihydrate Allergy Intermediate Rash Verified 12/31/18 06:27 [From Amoxil] levofloxacin [From Levaquin] Allergy Intermediate Rash Verified 12/31/18 06:27 sulfamethoxazole Allergy Intermediate Hives Verified 12/31/18 06:27 [From Bactrim] trimethoprim [From Bactrim] Allergy Intermediate Hives Verified 12/31/18 06:27 codeine [Codeine] AdvReac Mild Nausea Verified 12/31/18 06:27 cefuroxime axetil AdvReac Nausea Verified 12/31/18 06:27 [From Ceftin] CT contrast AdvReac Uncoded 12/31/18 06:27 01/27/19 16:35 I have performed a brief in-person evaluation of this patient. The patient presents with a chief complaint of: chest pain/sob this morning with bp 170s, seen at [facility] urgent care, sent here for bloodwork. all symptoms have since subsided. no hx of ACS. Pertinent physical exam findings: well appearing, lungs ctab I have ordered the following: cardiac workup The patient will proceed to the ED for further evaluation. Discharge Disposition - Diagnosis Chest pain - Discharge Dispostion Condition at time of disposition: Stable - Referrals - Patient Instructions - Post Discharge Activity
[2019-01-27 17:13] LABS: BASO % 0.9 % (0-2.0); EOS % 0.4 % (0-4.5); HEMATOCRIT 37.5 % (32.4-45.2); HEMOGLOBIN 12.5 GM/dL (10.7-15.3); MCH 31.8 pg (25.7-33.7); MCHC 33.4 g/dl (32.0-36.0); MEAN CELL VOLUME 95.3 fl (80-96); MEAN PLT VOLUME 8.2 fl (7.5-11.1); MONO % 2.4 % (3.8-10.2); NEUT % 87.3 % (42.8-82.8); PLATELET COUNT 240 K/MM3 (134-434); RBC 3.93 M/mm3 (3.60-5.2); WHITE BLOOD COUNT 7.4 K/mm3 (4.0-10.0)
[2019-01-27 17:39] LABS: PROTHROMBIN TIME (PATIENT) 11.8 SEC (9.7-13.0)
[2019-01-27 17:43] LABS: ALBUMIN 3.9 g/dl (3.4-5.0); ALK PHOS 72 U/L (45-117); ANION GAP 9 MMOL/L (8-16); BILIRUBIN,TOTAL 0.7 mg/dL (0.2-1); BLOOD UREA NITROGEN 35.2 mg/dL (7-18); CALCIUM 9.4 mg/dL (8.5-10.1); CHLORIDE 106 mmol/L (98-107); CO2 27 mmol/L (21-32); CREATININE 1.2 mg/dL (0.55-1.3); GLUCOSE,RANDOM 148 mg/dL (74-106); MAGNESIUM 2.2 mg/dL (1.8-2.4); POTASSIUM 4.6 mmol/L (3.5-5.1); SGOT/AST 26 U/L (15-37); SGPT/ALT 30 U/L (13-61); SODIUM 143 mmol/L (136-145); TOT PROT 6.4 g/dl (6.4-8.2)
--- NOTE | 2019-01-27 17:55 | PDOC ---
History of Present Illness - General Chief Complaint: Chest Pain Stated Complaint: CHEST PAIN Time Seen by Provider: 01/27/19 16:35 Past History - Past Medical History Allergies/Adverse Reactions: Allergies Allergy/AdvReac Type Severity Reaction Status Date / Time amoxicillin trihydrate Allergy Intermediate Rash Verified 12/31/18 06:27 [From Amoxil] levofloxacin [From Levaquin] Allergy Intermediate Rash Verified 12/31/18 06:27 sulfamethoxazole Allergy Intermediate Hives Verified 12/31/18 06:27 [From Bactrim] trimethoprim [From Bactrim] Allergy Intermediate Hives Verified 12/31/18 06:27 codeine [Codeine] AdvReac Mild Nausea Verified 12/31/18 06:27 cefuroxime axetil AdvReac Nausea Verified 12/31/18 06:27 [From Ceftin] CT contrast AdvReac Uncoded 12/31/18 06:27 Home Medications: Ambulatory Orders Aspirin [ASA -] 81 mg PO DAILY 10/17/14 Bupropion HCl [Wellbutrin -] 150 mg PO DAILY 10/17/14 Lactobacillus Acidophilus [Probiotic] 1 cap PO DAILY 10/17/14 Levothyroxine [Synthroid -] 100 mcg PO DAILY 10/17/14 Tramadol HCl 50 mg PO TID PRN 10/17/14 Cholecalciferol (Vitamin D3) [Vitamin D3 -] 1 unit PO DAILY 01/02/16 Multivit-Min/Iron/Folic/Lutein [Centrum Silver Women Tablet] 1 each PO DAILY Nebivolol HCl [Bystolic] 5 mg PO HS 12/26/17 Atorvastatin Ca [Lipitor] 40 mg PO HS 12/27/18 Calcium Carbonate [Calcium] 600 mg PO DAILY 12/27/18 Valsartan [Diovan] 80 mg PO AM 12/27/18 Famotidine [Pepcid] 40 mg PO DAILY 01/27/19 Escitalopram Oxalate [Lexapro -] 10 mg PO DAILY 01/28/19 Ranitidine [Zantac -] 150 mg PO TID 01/28/19 Anemia: No Asthma: No Cancer: No Cardiac Disorders: Yes (hx of SOB,hx of CAD) CVA: No COPD: No CHF: No Dementia: No Diabetes: No GI Disorders: Yes (GERD) Disorders: No HTN: Yes Hypercholesterolemia: Yes Liver Disease: No Seizures: No Thyroid Disease: Yes (HYPOTHYROIDISM) - Surgical History Abdominal Surgery: No Appendectomy: Yes Cardiac Surgery: Yes (CARDIAC CATHERIZATION-NEGATIVE) Cholecystectomy: No Lung Surgery: No Neurologic Surgery: No Orthopedic Surgery: No - Immunization History Immunization Up to Date: Yes - Psycho Social/Smoking Cessation Hx Smoking Status: No Smoking History: Never smoked Have you smoked in the past 12 months: No Number of Cigarettes Smoked Daily: 0 Information on smoking cessation initiated: No Hx Alcohol Use: No Drug/Substance Use Hx: No Substance Use Type: None Hx Substance Use Treatment: No *Physical Exam - Vital Signs Last Vital Signs Temp Pulse Resp BP Pulse Ox 98.4 F 76 16 144/87 97 01/27/19 16:32 01/27/19 16:32 01/27/19 16:32 01/27/19 16:32 01/27/19 16:32 Heart Score/ECG Review - History History: Slightly suspicious - Electrocardiogram EKG: Normal - Age Age: >/= 65 - Risk Factors Risk Factors Heart Score: Yes Hx Hypercholesterolemia, Yes Hx Hypertension, Yes Positive family hx of cardiac disease Based on the list above the patient has:: >/=3 risk factors or Hx atherosclerotic disease - Troponin Troponin: </= normal limit - Score Heart Score - Total: 4 ED Treatment Course - LABORATORY CBC & Chemistry Diagram: 01/28/19 05:30 01/28/19 05:30 - ADDITIONAL ORDERS Additional order review: Laboratory Results 01/27/19 01/27/19 17:00 17:00 PT with INR 11.80 INR 1.00 Sodium 143 Potassium 4.6 Chloride 106 Carbon Dioxide 27 Anion Gap 9 BUN 35.2 H Creatinine 1.2 Est GFR (CKD-EPI)AfAm 47.72 Est GFR (CKD-EPI)NonAf 41.18 Random Glucose 148 H Calcium 9.4 Magnesium 2.2 Total Bilirubin 0.7 AST 26 ALT 30 Alkaline Phosphatase 72 Creatine Kinase 46 Troponin I < 0.02 Total Protein 6.4 Albumin 3.9 01/27/19 17:00 RBC 3.93 MCV 95.3 MCHC 33.4 RDW 13.0 MPV 8.2 Neutrophils % 87.3 H D Lymphocytes % 9.0 D Monocytes % 2.4 L Eosinophils % 0.4 D Basophils % 0.9 Medical Decision Making - Medical Decision Making HPI: 83yo F with PMH of HTN, HLD, CAD s/p stent presenting sent by urgent care for evaluation of chest pain and hypertension. Patient describes the pain as "pressure" and rates it 5-6/10. She was sleeping when it first occurred at 5am this morning and it was been intermittent, lasting about five minutes at at time. Never felt anything like this before. No associated nausea, vomiting, or diaphoresis. Had a stress test "a couple months ago" with unknown result. Had an ECHO "recently" with unknown results. BP has been trending high for the past 4-5 days, as high as 236 systolic. 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 No fevers or chills. ROS: Constitutional: no fever, no chills HEENT: no throat pain, no dysphagia Cardiovascular: +chest pain, no palpitations Respiratory: no cough, +shortness of breath Gastrointestinal: no abdominal pain, no nausea Genitourinary: no dysuria, no hematuria Musculoskeletal: no myalgia, no arthralgia Skin: no rash, no itching Neurologic: no headache, no weakness PE: General: Awake, alert, and fully oriented, in no acute distress Head: No signs of trauma Eyes: EOMI, sclera anicteric ENT: Moist mucus membranes Neck: Normal ROM, supple Lungs: Lungs clear, Normal breath sounds Cardio: Regular rhythm, S1 and S2 present Abdomen: Soft, nontender Extremities: Normal range of motion, Distal pulses present, No calf tenderness, No leg swelling SKIN: Warm, Dry, normal turgor Neurologic: Cranial nerves II through XII grossly intact. Normal speech ED Course/MDM: DDX including but not limited to ACS, PE, PNA, anemia, metabolic derangement Labs, EKG, CXR 01/27/19 17:54 EKG: rate 74, QTc 417, NSR, LVH CBC WBC 7.4 K/mm3 (4.0-10.0) 01/27/19 17:00 RBC 3.93 M/mm3 (3.60-5.2) 01/27/19 17:00 Hgb 12.5 GM/dL (10.7-15.3) 01/27/19 17:00 Hct 37.5 % (32.4-45.2) 01/27/19 17:00 MCV 95.3 fl (80-96) 01/27/19 17:00 MCH 31.8 pg (25.7-33.7) 01/27/19 17:00 MCHC 33.4 g/dl (32.0-36.0) 01/27/19 17:00 RDW 13.0 % (11.6-15.6) 01/27/19 17:00 Plt Count 240 K/MM3 (134-434) 01/27/19 17:00 MPV 8.2 fl (7.5-11.1) 01/27/19 17:00 Absolute Neuts (auto) 6.5 K/mm3 (1.5-8.0) 01/27/19 17:00 Neutrophils % 87.3 % (42.8-82.8) H D 01/27/19 17:00 Lymphocytes % 9.0 % (8-40) D 01/27/19 17:00 Monocytes % 2.4 % (3.8-10.2) L 01/27/19 17:00 Eosinophils % 0.4 % (0-4.5) D 01/27/19 17:00 Basophils % 0.9 % (0-2.0) 01/27/19 17:00 Nucleated RBC % 0 % (0-0) 01/27/19 17:00 No leukocytosis CMP Sodium 143 mmol/L (136-145) 01/27/19 17:00 Potassium 4.6 mmol/L (3.5-5.1) 01/27/19 17:00 Chloride 106 mmol/L (98-107) 01/27/19 17:00 Carbon Dioxide 27 mmol/L (21-32) 01/27/19 17:00 Anion Gap 9 MMOL/L (8-16) 01/27/19 17:00 BUN 35.2 mg/dL (7-18) H 01/27/19 17:00 Creatinine 1.2 mg/dL (0.55-1.3) 01/27/19 17:00 Est GFR (CKD-EPI)AfAm 47.72 01/27/19 17:00 Est GFR (CKD-EPI)NonAf 41.18 01/27/19 17:00 Random Glucose 148 mg/dL (74-106) H 01/27/19 17:00 Calcium 9.4 mg/dL (8.5-10.1) 01/27/19 17:00 Magnesium 2.2 mg/dL (1.8-2.4) 01/27/19 17:00 Total Bilirubin 0.7 mg/dL (0.2-1) 01/27/19 17:00 AST 26 U/L (15-37) 01/27/19 17:00 ALT 30 U/L (13-61) 01/27/19 17:00 Alkaline Phosphatase 72 U/L (45-117) 01/27/19 17:00 Creatine Kinase 46 U/L (26-192) 01/27/19 17:00 Troponin I < 0.02 ng/ml (0.00-0.05) 01/27/19 17:00 Total Protein 6.4 g/dl (6.4-8.2) 01/27/19 17:00 Albumin 3.9 g/dl (3.4-5.0) 01/27/19 17:00 Electrolytes unremarkable Tpn undetectable CXR with cardiomegaly, per radiology report: "Since prior chest x-ray dated 06/24, the cardiac silhouette remains slightly to moderately enlarged with mild atherosclerotic unfolding of the aortic arch. The lung is clear. Note is again made of prominent soft tissue in the right paratracheal region likely representing prominent vessels as noted on prior CT scan of the thoracic spine dated 12/26/2017 Impression: Cardiomegaly without evidence of acute lung disease " 01/27/19 19:[address] High who accepted patient for admission under Dr. Roque 01/27/19 20:40 Discharge - Discharge Information Problems reviewed: Yes Clinical Impression/Diagnosis: Chest pain Qualifiers: Chest pain type: unspecified Qualified Code(s): R07.9 - Chest pain, unspecified Condition: Guarded - Admission Yes - Follow up/Referral - Patient Discharge Instructions - Post Discharge Activity
[2019-01-27] MEDS ORDERED: NEBIVOLOL 5 MG TABLET (FP) PO ONE (19:26)
[2019-01-27] MEDS ORDERED: ACETAMINOPHEN 500 MG TABLET (FP) PO ONE (19:48)
[2019-01-27] MEDS ORDERED: ACETAMINOPHEN 325 MG TABLET (FP) ONE (20:21)
--- NOTE | 2019-01-27 20:28 | PDOC ---
Attending Attestation - Resident Resident Name: Valarie Chin - ED Attending Attestation I have performed the following: I have examined & evaluated the patient, The case was reviewed & discussed with the resident, I agree w/resident's findings & plan, Exceptions are as noted - HPI HPI: 01/27/19 20:28 83F PMH HTN, HLD, CAD s/p stenting here with several episodes of self-lmited chest pain starting early this morning a/w elevated systolic BP as high as 200s. Patient has been measuring consistently high BP for the past 5 days. Upon consulting her cardiology her home BP meds were increased from once a day to twice a day. - Physicial Exam PE: 01/28/19 00:17 Agree with exam as documented by resident - Medical Decision Making 01/28/19 00:18 Chest pain in high risk patient, concern for ACS, no risk factors for PE, infectious etiology unlikely cxr, ekg, labs including trops ekg non-ischemic, trop neg x1 admit for ACS r/o
[2019-01-28] MEDS ORDERED: HEPARIN NA (PORCINE) 5,000 UNITS/ML 1ML VIAL SQ ONE (00:03)
--- NOTE | 2019-01-28 00:09 | PN ---
Teaching Attending Note Name of Resident: Rayne High ATTENDING PHYSICIAN STATEMENT I saw and evaluated the patient. I reviewed the resident's note and discussed the case with the resident. I agree with the resident's findings and plan as documented. SUBJECTIVE: 83yo woman w/ HTN, HLD, CAD s/p stent sent by urgent care for evaluation of chest pain and hypertension. Patient describes the pain as "pressure" and rates it 5-6/10. She was sleeping when it first occurred at 5am this morning and it was been intermittent, lasting about five minutes at at time. OBJECTIVE: Last Vital Signs Temp Pulse Resp BP Pulse Ox 98 F 68 21 H 248/91 H 97 01/27/19 19:13 01/28/19 00:02 01/28/19 00:02 01/28/19 00:02 01/28/19 00:02 gen -nad aaox3 heent- atraumatic neck supple cv -s1+s2+rrr chest clear abd -soft nt ext - no pedal edema skin without rashes Abnormal Lab Results 01/27/19 01/27/19 17:00 17:00 Neutrophils % 87.3 H D Monocytes % 2.4 L BUN 35.2 H Random Glucose 148 H imaging reviewed ekg did not shows signs of acute ischemic changes ASSESSMENT AND PLAN: #chest pain - acs should be r/o as pt is high risk due to hx of cad. Wells score of 0 so do not suspect PE at this time. -tele-obs -trend trop -echo -low Na diet -asa -statin -bblocker -dvt ppx
[2019-01-28] MEDS ORDERED: HEPARIN NA (PORCINE) 5,000 UNITS/ML 1ML VIAL ONE (00:48)
--- NOTE | 2019-01-28 01:12 | HP ---
CHIEF COMPLAINT: chest pain PCP: Dr. Varner HISTORY OF PRESENT ILLNESS: 83 y.o. F PMH HTN, HLD, CAD, hypothyroidism presenting from home for chest pain and high blood pressure. The pain woke the patient from sleep overnight. Pain was pleuritic in nature, present mainly at the left scapula and under her left breast. She is no longer experiencing any pain but when she was it was sharp, intermittent, non radiating; the pain is non-reproducible No exacerbating/ alleviating factors. She has never felt this type of pain in the past. Of note, patient keeps a BP log and recorded 236/93 on 01/25/19. She also endorses having a stress test and an echo a few months ago with Dr. Daniel director of conservation but is unsure of the results. On ROS: + dull headache, mild shortness of breath Denies current chest pain/ nausea/ dizziness/ vomiting/ diarrhea/ urinary changes/ myalgias/ weight changes. ER course was notable for: (1)tylenol 650mg (2)bystolic 5mg (3)Dr. Daniel contacted Recent Travel: denies PAST MEDICAL HISTORY: as per hpi PAST SURGICAL HISTORY: stent placement Social History: Smoking: denies Alcohol:denies Drugs: denies Allergies amoxicillin trihydrate [From Amoxil] Allergy (Intermediate, Verified 12/31/18 06 :27) Rash levofloxacin [From Levaquin] Allergy (Intermediate, Verified 12/31/18 06:27) Rash sulfamethoxazole [From Bactrim] Allergy (Intermediate, Verified 12/31/18 06:27) Hives trimethoprim [From Bactrim] Allergy (Intermediate, Verified 12/31/18 06:27) Hives codeine [Codeine] Adverse Reaction (Mild, Verified 12/31/18 06:27) Nausea cefuroxime axetil [From Ceftin] Adverse Reaction (Verified 12/31/18 06:27) Nausea CT contrast Adverse Reaction (Uncoded 12/31/18 06:27) HOME MEDICATIONS: Home Medications Medication Instructions Recorded Aspirin [ASA -] 81 mg PO DAILY 10/17/14 Bupropion HCl [Wellbutrin -] 150 mg PO DAILY 10/17/14 Lactobacillus Acidophilus 1 cap PO DAILY 10/17/14 [Probiotic] Levothyroxine [Synthroid -] 100 mcg PO DAILY 10/17/14 Tramadol HCl 50 mg PO TID PRN 10/17/14 Cholecalciferol (Vitamin D3) 1 unit PO DAILY 01/02/16 [Vitamin D3 -] Multivit-Min/Iron/Folic/Lutein 1 each PO DAILY 11/06/17 [Centrum Silver Women Tablet] Nebivolol HCl [Bystolic] 10 mg PO HS 12/26/17 Atorvastatin Ca [Lipitor] 40 mg PO HS 12/27/18 Calcium Carbonate [Calcium] 600 mg PO DAILY 12/27/18 Valsartan [Diovan] 80 mg PO AM 12/27/18 Famotidine [Pepcid] 40 mg PO DAILY 01/27/19 PHYSICAL EXAMINATION Vital Signs - 24 hr 01/27/19 01/27/19 01/28/19 16:32 19:13 00:02 Temperature 98.4 F 98 F Pulse Rate 76 Pulse Rate [ 62 68 Left Apical] Respiratory 16 14 21 H Rate Blood Pressure 144/87 Blood Pressure 184/85 H 248/91 H [Right Arm] O2 Sat by Pulse 97 96 97 Oximetry (%) GENERAL: Awake, alert, and fully oriented, in no acute distress. HEENT: NCAT. PERRLA. No JVD. MMM. LUNGS: Breath sounds equal, clear to auscultation bilaterally. No wheezes, and no crackles. No accessory muscle use. HEART: Regular rate and rhythm, normal S1 and S2 without murmur, rub or gallop. ABDOMEN: Soft, nontender, not distended, normoactive bowel sounds, no guarding. EXTR: 2+ pulses intact b/l UE & LE. No peripheral edema. PSYCHIATRIC: Cooperative. Good eye contact. Appropriate mood and affect. SKIN: No rashes or lesions noted. Laboratory Results - last 24 hr 01/27/19 01/27/19 01/27/19 17:00 17:00 17:00 WBC 7.4 RBC 3.93 Hgb 12.5 Hct 37.5 MCV 95.3 MCH 31.8 MCHC 33.4 RDW 13.0 Plt Count 240 MPV 8.2 Absolute Neuts (auto) 6.5 Neutrophils % 87.3 H D Lymphocytes % 9.0 D Monocytes % 2.4 L Eosinophils % 0.4 D Basophils % 0.9 Nucleated RBC % 0 PT with INR 11.80 INR 1.00 Sodium 143 Potassium 4.6 Chloride 106 Carbon Dioxide 27 Anion Gap 9 BUN 35.2 H Creatinine 1.2 Est GFR (CKD-EPI)AfAm 47.72 Est GFR (CKD-EPI)NonAf 41.18 Random Glucose 148 H Calcium 9.4 Magnesium 2.2 Total Bilirubin 0.7 AST 26 ALT 30 Alkaline Phosphatase 72 Creatine Kinase 46 Troponin I < 0.02 Total Protein 6.4 Albumin 3.9 CXR: Cardiomegaly without evidence of acute lung disease ASSESSMENT/PLAN: 83 y.o. F PMH HTN, HLD, CAD, hypothyroidism presenting from home for chest pain and high blood pressure. #Chest pain, hypertensive urgency -BP #1- 184/85 #2-248/91 on admission -+ orthostatics: Sitting 162/79 standing 142/67 -S/p bystolic 5mg in ED -Reinstated home meds, confirmed w/ pharmacy: bystolic 10mg @ bedtime, valsartan 80mg AM -Dr. Daniel cardiology consulted -EKG reviewed, no ischemia; trop neg x1 -continuous cardiac monitoring -F/u echo -F/u stress test results from dr. daniel -C/w daily asa #HLD -C/w atorvastatin 40mg daily #Hypothyroidism -C/w synthroid 100mcg daily -F/u TSH #FEN -no standing fluids -trend lytes -na controlled diet #DVT PPX -Heparin SQ Visit type - Emergency Visit Emergency Visit: Yes ED Registration Date: 01/27/19 Care time: The patient presented to the Emergency Department on the above date and was hospitalized for further evaluation of their emergent condition. - New Patient This patient is new to me today: Yes Date on this admission: 01/28/19 - Critical Care Critical Care patient: No ATTENDING PHYSICIAN STATEMENT I saw and evaluated the patient. I reviewed the resident's note and discussed the case with the resident. I agree with the resident's findings and plan as documented. SUBJECTIVE: OBJECTIVE: ASSESSMENT AND PLAN:
[2019-01-28 05:57] LABS: HEMATOCRIT 34.1 % (32.4-45.2); HEMOGLOBIN 11.9 GM/dL (10.7-15.3); MCH 32.8 pg (25.7-33.7); MCHC 34.7 g/dl (32.0-36.0); MEAN CELL VOLUME 94.4 fl (80-96); MEAN PLT VOLUME 7.9 fl (7.5-11.1); PLATELET COUNT 214 K/MM3 (134-434); RBC 3.61 M/mm3 (3.60-5.2); RDW 13.1 % (11.6-15.6)
[2019-01-28] MEDS ORDERED: LEVOTHYROXINE NA 25 MCG TABLET (FP) ONE (06:24)
[2019-01-28] MEDS ORDERED: VALSARTAN 80 MG TABLET (UD) ONE (06:25)
[2019-01-28 06:37] LABS: ALBUMIN 3.6 g/dl (3.4-5.0); BLOOD UREA NITROGEN 39.7 mg/dL (7-18); CALCIUM 9.3 mg/dL (8.5-10.1); CREATININE 1.1 mg/dL (0.55-1.3); MAGNESIUM 2.3 mg/dL (1.8-2.4); PHOSPHOROUS 3.7 mg/dL (2.5-4.9); POTASSIUM 4.5 mmol/L (3.5-5.1); TOT PROT 5.9 g/dl (6.4-8.2)
[2019-01-28] MEDS ORDERED: VALSARTAN 80 MG TABLET (UD) PO SCH ×2 (07:00)
[2019-01-28] MEDS ORDERED: LEVOTHYROXINE NA 100 MCG TABLET (FP) PO SCH (07:00)
[2019-01-28] MEDS ORDERED: RANITIDINE HCL 150 MG TABLET (FP) PO SCH (10:00)
--- NOTE | 2019-01-28 10:36 | CON.CARD ---
Consult Consult Specialty:: Cardiology Referred by:: Hospitalist Medicine Reason for Consultation:: Hypertensive urgency - History of Present Illness Chief Complaint: Chest pain and NORTH History of Present Illness: 83yo woman w/ HTN heart disease with labile BP, HLD, CAD s/p stent, diastolic dysfunction sent by urgent care for evaluation of chest pain, NORTH and hypertension. Patient describes the pain as "pressure" and rates it 5-6/10. She was sleeping when it first occurred at 5am this morning and it was been intermittent, lasting about five minutes at at time since resolved. Currently asymptomatic, denies chest pain, dyspnea, orthopnea, near or true syncope, palpitations, PND or LE edema. She was last seen in office 01/26/2019, reports medication and diet compliance. - History Source History Provided By: Patient Limitations to Obtaining History: No Limitations - Alcohol/Substance Use Hx Alcohol Use: No - Smoking History Smoking history: Never smoked Have you smoked in the past 12 months: No Aproximately how many cigarettes per day: 0 Home Medications - Allergies Allergies/Adverse Reactions: Allergies Allergy/AdvReac Type Severity Reaction Status Date / Time amoxicillin trihydrate Allergy Intermediate Rash Verified 12/31/18 06:27 [From Amoxil] levofloxacin [From Levaquin] Allergy Intermediate Rash Verified 12/31/18 06:27 sulfamethoxazole Allergy Intermediate Hives Verified 12/31/18 06:27 [From Bactrim] trimethoprim [From Bactrim] Allergy Intermediate Hives Verified 12/31/18 06:27 codeine [Codeine] AdvReac Mild Nausea Verified 12/31/18 06:27 cefuroxime axetil AdvReac Nausea Verified 12/31/18 06:27 [From Ceftin] CT contrast AdvReac Uncoded 12/31/18 06:27 - Home Medications Home Medications: Ambulatory Orders Aspirin [ASA -] 81 mg PO DAILY 10/17/14 Bupropion HCl [Wellbutrin -] 150 mg PO DAILY 10/17/14 Lactobacillus Acidophilus [Probiotic] 1 cap PO DAILY 10/17/14 Levothyroxine [Synthroid -] 100 mcg PO DAILY 10/17/14 Tramadol HCl 50 mg PO TID PRN 10/17/14 Cholecalciferol (Vitamin D3) [Vitamin D3 -] 1 unit PO DAILY 01/02/16 Multivit-Min/Iron/Folic/Lutein [Centrum Silver Women Tablet] 1 each PO DAILY Nebivolol HCl [Bystolic] 10 mg PO HS 12/26/17 Atorvastatin Ca [Lipitor] 40 mg PO HS 12/27/18 Calcium Carbonate [Calcium] 600 mg PO DAILY 12/27/18 Valsartan [Diovan] 80 mg PO AM 12/27/18 Famotidine [Pepcid] 40 mg PO DAILY 01/27/19 Review of Systems - Review of Systems Cardiovascular: reports: Chest Pain Respiratory: reports: Exercise Intolerance, SOB on Exertion Vital Signs: Vital Signs Temperature 97.1 F L 01/28/19 06:38 Pulse Rate 71 01/28/19 06:38 Respiratory Rate 18 01/28/19 06:38 Blood Pressure 198/72 H 01/28/19 06:38 O2 Sat by Pulse Oximetry (%) 97 01/28/19 06:38 Constitutional: Yes: No Distress, Calm Neck: Yes: Supple Respiratory: Yes: Regular, CTA Bilaterally Gastrointestinal: Yes: Normal Bowel Sounds, Soft Cardiovascular: Yes: Regular Rate and Rhythm JVD: No Carotid Bruit: No Heart Sounds: Yes: S1, S2 Edema: No - Other Data Labs, Other Data: CBC, BMP 01/28/19 05:30 01/28/19 05:30 INR, PTT INR 1.00 (0.83-1.09) 01/27/19 17:00 Troponin, BNP 01/27/19 01/28/19 17:00 02:00 Troponin I < 0.02 < 0.02 Troponin, BNP 01/27/19 01/28/19 17:00 02:00 Troponin I < 0.02 < 0.02 NSR @ 74 LVH, LAE Ejection Fraction %: LVEF > or = 40 % Imaging - Results Chest X-ray: Report Reviewed (NAD) Problem List - Problems (1) Hypertensive urgency Code(s): I16.0 - HYPERTENSIVE URGENCY (2) Diastolic dysfunction Code(s): I51.89 - OTHER ILL-DEFINED HEART DISEASES (3) Hyperlipidemia Code(s): E78.5 - HYPERLIPIDEMIA, UNSPECIFIED Qualifiers: Hyperlipidemia type: pure hypercholesterolemia Qualified Code(s): E78.00 - Pure hypercholesterolemia, unspecified; E78.0 - Pure hypercholesterolemia (4) Status post insertion of drug-eluting stent into left anterior descending ( LAD) artery Code(s): Z95.5 - PRESENCE OF CORONARY ANGIOPLASTY IMPLANT AND GRAFT (5) Coronary artery disease Code(s): I25.10 - ATHSCL HEART DISEASE OF [place] CORONARY ARTERY W/O ANG PCTRS Qualifiers: Coronary Disease-Associated Artery/Lesion type: [place] artery [place] vs. transplanted heart: [place] heart Associated angina: without angina Qualified Code(s): I25.10 - Atherosclerotic heart disease of [place] coronary artery without angina pectoris (6) Chest pain Code(s): R07.9 - CHEST PAIN, UNSPECIFIED Qualifiers: Chest pain type: unspecified Qualified Code(s): R07.9 - Chest pain, unspecified (7) Hypothyroidism Code(s): E03.9 - HYPOTHYROIDISM, UNSPECIFIED Qualifiers: Hypothyroidism type: unspecified Qualified Code(s): E03.9 - Hypothyroidism , unspecified Assessment/Plan 11/30/2018 Diony Myoview: No ischemia, normal LVEF 71% 07/12/2018 Echo: cLVH with normal LV size and fxn LVEF 65-70%, grade I diastolic dysfunction with normal filling pressures, mod LAE, normal RV size and fxn, mild AR, MR, mild-mod TR RVSP 34 mmHg 09/11/2017 Normal LV fxn LVEF>60%, mildly elevated right-sided pressures, normal LM, mid LAD 70%, ostial LAD-D1 70% s/p ZAINA, LCx and RCA luminal irregularities 1. Hypertensive urgency with labile BP 2. 1 vessel CAD s/p ZAINA LAD 3. Diastolic dysfunction 4. Hyperlipidemia 5. Hypothyroidism 6. CKD P:1. Continue Diovan 160 qd, Bystolic 10 qd, Lipitor 40 qd, ASA 81 qd 2. Ruled out for MO, f/u echocardiogram 3. Synthroid dose per TSH 4. Thank you for consultative opportunity, eventual f/u with Dr. Sanz
[2019-01-28] MEDS: CALCIUM (OYSTER SHELL) 500 MG TABLET (FP) PO SCH (10:50)
[2019-01-28] MEDS: CHOLECALCIFEROL (VIT D3) 400 UNIT (10 MCG) TABLET PO SCH (10:50)
[2019-01-28] MEDS: LACTOBACILLUS ACIDOPHILUS 1 TABLET PO SCH (10:50)
[2019-01-28] MEDS: MULTIVITAMINS THER W-MINERALS COMBO TABLET (FP) PO SCH (10:50)
[2019-01-28] MEDS: FAMOTIDINE 20 MG TABLET PO SCH (10:50)
[2019-01-28] MEDS: ASPIRIN 81 MG CHEWABLE TABLETS PO SCH (10:50)
--- NOTE | 2019-01-28 12:51 | EKG ---
Test Reason : Blood Pressure : / mmHG Vent. Rate : 074 BPM Atrial Rate : 074 BPM P-R Int : 170 ms QRS Dur : 088 ms QT Int : 376 ms P-R-T Axes : 050 003 049 degrees QTc Int : 417 ms NORMAL SINUS RHYTHM POSSIBLE LEFT ATRIAL ENLARGEMENT LEFT VENTRICULAR HYPERTROPHY NONSPECIFIC ST ABNORMALITY ABNORMAL ECG WHEN COMPARED WITH ECG OF 13-JUN-2017 12:21, NO SIGNIFICANT CHANGE WAS FOUND Confirmed by CHIQUIS CHILDRESS MD ([id number]) on 01/28/2019 12:50:49 PM Referred By: Confirmed By:CHIQUIS CHILDRESS MD
[2019-01-28] MEDS ORDERED: VALSARTAN 80 MG TABLET (UD) PO ONE (13:05)
--- NOTE | 2019-01-28 14:30 | PN ---
Teaching Attending Note Name of Resident: Vishal Sandoval ATTENDING PHYSICIAN STATEMENT I saw and evaluated the patient. I reviewed the resident's note and discussed the case with the resident. I agree with the resident's findings and plan as documented. SUBJECTIVE: seen at 12:30 pm No fever or chills. No CP at the time of evaluation. reproted cp inL scpula and the around her L breast 2 days ago with elevated BP. then she went to urgent care yesterday due to elevated BP. received a dose of IV BP meds, and then was called by urgent care after she went home. she was recommended she came to ER. her bystolic and valsartan were increased 3 days prior. she reports compliance now feels at base line. OBJECTIVE: NAD, erythema with dilated vessels on face and chin. Cv: RRR, no MRG Lungs: CTAB Abd: soft, NT, ND, nL BS Ext : No edema or erythema ASSESSMENT AND PLAN: 83 y/o lady with h/o CAD s/p ZAINA to LAD, diastolic dysfunction , HTN, HLP, hypothyroidism, and other medical issues who presented with HTN urgency. 1- Hypertensive urgency. BP improved - cont her home regimen as it was recently increased. - monitor BP. - low salt diet 2- CP : now resolved. EKG with no ischemic changes, and not changed from prior. trop ng x 2 echo pending read. tele monitoring cont aspirin and statin 3- H/o hypothyroidism, with induced hyperthyroidism. - decrease dose of synthroid to 75 mcg - repeat TFTs in 4-6 weeks. dc home in am if BP remains stable
--- NOTE | 2019-01-28 15:24 | ECHO ---
Name: JULIAN GOMEZUREEN Exam:Adult Echocardiogram Study Date: 01/28/2019 10:58 AM Age: 83 yrs Reason For Study: HTN Height: 60 in Weight: 138 lb BSA: 1.6 m2 MMode/2D Measurements & Calculations IVSd: 1.3 cm Ao root diam: 2.8 cm LVIDd: 3.2 cm LA dimension: 3.0 cm LVIDs: 2.3 cm LVPWd: 1.1 cm EDV(Teich): 40.0 ml LVOT diam: 2.0 cm ESV(Teich): 18.6 ml LAV (MOD-bp): 47.2 ml Doppler Measurements & Calculations MV E max christelle: 81.5 cm/sec Ao V2 max: 181.0 cm/sec MV A max christelle: 118.8 cm/sec Ao max P.1 mmHg MV E/A: 0.69 AI P1/2t: 401.0 msec MV dec time: 0.28 sec RENETTA(V,D): 2.4 cm2 AI max christelle: 502.0 cm/sec LV V1 max P.0 mmHg AI max P.8 mmHg LV V1 max: 141.2 cm/sec AI dec slope: 366.7 cm/sec2 TR max christelle: 298.2 cm/sec PA V2 max: 114.0 cm/sec TR max P.6 mmHg PA max P.2 mmHg PI Vmax: 169.7 cm/sec Procedure The study was technically difficult with many images being suboptimal in quality. Left Ventricle There is mild concentric left ventricular hypertrophy. Left ventricular systolic function is grossly normal. Right Ventricle The right ventricle is normal in size and function. Atria Normal left and right atrial size and function. Mitral Valve The mitral valve is normal in structure and function. There is no mitral valve stenosis. Tricuspid Valve The tricuspid valve is normal in structure and function. There is mild tricuspid regurgitation. Aortic Valve No hemodynamically significant valvular aortic stenosis. Mild to moderate aortic regurgitation. Pulmonic Valve The pulmonic valve is not well seen, but is grossly normal. Mild pulmonic valvular regurgitation. Great Vessels The aortic root is normal size. Pericardium/Pleura Trivial pericardial effusion not hemodynamically significant. Interpretation Summary Trivial pericardial effusion not hemodynamically significant The study was technically difficult with many images being suboptimal in quality. There is mild concentric left ventricular hypertrophy. Left ventricular systolic function is grossly normal. There is mild tricuspid regurgitation. Mild to moderate aortic regurgitation. MD Jose R Cardozo 01/28/2019 11:40 AM
[2019-01-28 15:42] VITALS: BMI 26.8
[2019-01-28] MEDS ORDERED: PT OWN MED DRAWER 7, Y5N ONE (17:13)
--- NOTE | 2019-01-28 19:09 | PN ---
Physical Exam: SUBJECTIVE: Patient seen and examined. pt says chest pain improved. and she feels much better now. no SOB OBJECTIVE: Vital Signs Period Temp Pulse Resp BP Sys/Piper Pulse Ox Last 24 Hr 97.1 F-98.4 F 62-72 14-21 136-248/69-91 95-100 GENERAL: The patient is awake, alert, and fully oriented, in no acute distress. HEAD: Normal with no signs of trauma. EYES: PERRL, extraocular movements intact, sclera anicteric, conjunctiva clear. No ptosis. ENT: oropharynx clear without exudates, moist mucous membranes. NECK: Trachea midline, full range of motion, supple. LUNGS: Breath sounds equal, clear to auscultation bilaterally, no wheezes, no crackles, no accessory muscle use. HEART: Regular rate and rhythm, S1, S2 without murmur, rub or gallop. ABDOMEN: Soft, nontender, nondistended, normoactive bowel sounds, no guarding, no rebound, no hepatosplenomegaly, no masses. EXTREMITIES: 2+ pulses, warm, well-perfused, no edema. NEUROLOGICAL: Cranial nerves II through XII grossly intact. Normal speech, gait not observed. strength 5/5, sensation intact PSYCH: Normal mood, normal affect. SKIN: Warm, dry, normal turgor, no rashes or lesions noted Laboratory Results - last 24 hr 01/28/19 01/28/19 01/28/19 02:00 05:30 05:30 WBC 8.0 RBC 3.61 Hgb 11.9 Hct 34.1 MCV 94.4 MCH 32.8 MCHC 34.7 RDW 13.1 Plt Count 214 MPV 7.9 Sodium 140 Potassium 4.5 Chloride 107 Carbon Dioxide 28 Anion Gap 6 L BUN 39.7 H Creatinine 1.1 Est GFR (CKD-EPI)AfAm 53.02 Est GFR (CKD-EPI)NonAf 45.74 Random Glucose 102 Calcium 9.3 Phosphorus 3.7 Magnesium 2.3 Total Bilirubin 1.0 AST 21 ALT 26 Alkaline Phosphatase 66 Troponin I < 0.02 Total Protein 5.9 L Albumin 3.6 TSH 0.10 L Active Medications Generic Name Dose Route Start Last Admin Trade Name Freq PRN Reason Stop Dose Admin Aspirin 81 mg 01/28/19 10:00 01/28/19 10:50 Asa - PO 81 mg DAILY KATIE Administration Atorvastatin Calcium 40 mg 01/28/19 22:00 Lipitor - PO HS KATEI Bupropion HCl 150 mg 01/28/19 10:00 01/28/19 10:50 Wellbutrin Xl - PO 150 mg DAILY KATIE Administration Calcium Carbonate 500 mg 01/28/19 10:00 01/28/19 10:50 Os-Jones 500mg - PO 500 mg DAILY KATIE Administration Cholecalciferol 400 unit 01/28/19 10:00 01/28/19 10:50 Vitamin D3 - PO 400 unit DAILY KATIE Administration Famotidine 40 mg 01/28/19 10:00 01/28/19 10:50 Pepcid - PO 40 mg DAILY KATIE Administration Lactobacillus Acidophilus 1 tab 01/28/19 10:00 01/28/19 10:50 Bacid - PO 1 tab DAILY KATIE Administration Levothyroxine Sodium 75 mcg 01/29/19 07:00 Synthroid - PO DAILY@0700 [facility] Multivitamins/Minerals 1 each 01/28/19 10:00 01/28/19 10:50 Theragran-M PO 1 each DAILY KATIE Administration Nebivolol 10 mg 01/28/19 22:00 Bystolic - PO HS KATIE Tramadol HCl 50 mg 01/28/19 00:25 Ultram - PO TID PRN PAIN 4-6 Valsartan 160 mg 01/29/19 13:04 Diovan - PO AM [facility] ASSESSMENT/PLAN: 83 y.o. F PMH HTN, HLD, CAD, hypothyroidism presenting from home for chest pain and high blood pressure. Chest pain, hypertensive urgency improved from admission + orthostatics: Sitting 162/79 standing 142/67. will repeat for changes Per cardio Continue Diovan 160 qd, Bystolic 10 qd, Lipitor 40 qd, ASA [address] Daniel cardiology will follow EKG reviewed, no ischemia; trop neg x2. r/o'ed [place] continuous cardiac monitoring echo EF 55% LV function normal. Poor study stress test results from dr. daniel was negative tramadol for pain HLD atorvastatin 40mg daily Hypothyroidism TSH 0.10 home synthroid 100mcg daily switched 75mcg F/u TSH o/p FEN no standing fluids monitor lytes na controlled diet DVT PPX Heparin SQ resumed all other home meds Visit type - Emergency Visit Emergency Visit: Yes ED Registration Date: 01/27/19 Care time: The patient presented to the Emergency Department on the above date and was hospitalized for further evaluation of their emergent condition. - New Patient This patient is new to me today: Yes Date on this admission: 01/28/19 - Critical Care Critical Care patient: No - Discharge Referral Referred to [facility] Med P.C.: No ATTENDING PHYSICIAN STATEMENT I saw and evaluated the patient. I reviewed the resident's note and discussed the case with the resident. I agree with the resident's findings and plan as documented. SUBJECTIVE: OBJECTIVE: ASSESSMENT AND PLAN:
[2019-01-28] MEDS: ATORVASTATIN CA 40 MG TABLET (FP) PO SCH (21:13)
[2019-01-28] MEDS ORDERED: NEBIVOLOL 10 MG TABLET (FP) PO SCH (22:00)
[2019-01-29] MEDS: traMADol HCL 50 MG TABLET PO PRN ×2 (03:29→21:08)
[2019-01-29] MEDS ORDERED: VALSARTAN 160 MG TABLET (UD) PO ONE (06:04)
[2019-01-29 06:52] LABS: BASO % 0.9 % (0-2.0); EOS % 2.4 % (0-4.5); HEMATOCRIT 33.2 % (32.4-45.2); HEMOGLOBIN 11.7 GM/dL (10.7-15.3); LYMPH % 26.5 % (8-40); MCH 33.6 pg (25.7-33.7); MCHC 35.3 g/dl (32.0-36.0); MEAN CELL VOLUME 95.2 fl (80-96); MEAN PLT VOLUME 8.3 fl (7.5-11.1); MONO % 11.7 % (3.8-10.2); NEUT % 58.5 % (42.8-82.8); PLATELET COUNT 208 K/MM3 (134-434); RBC 3.48 M/mm3 (3.60-5.2); RDW 13.4 % (11.6-15.6); WHITE BLOOD COUNT 5.7 K/mm3 (4.0-10.0)
[2019-01-29] MEDS ORDERED: LEVOTHYROXINE NA 100 MCG TABLET (FP) PO SCH (07:00)
[2019-01-29 07:11] LABS: BLOOD UREA NITROGEN 32.9 mg/dL (7-18); CALCIUM 9.1 mg/dL (8.5-10.1); POTASSIUM 4.2 mmol/L (3.5-5.1)
--- NOTE | 2019-01-29 07:17 | PN ---
Progress Note (short form) - Note Progress Note: Chief Complaint: Events noted, notes reviewed, , denies any chest pain or dyspnea, blood pressure remains elevated History of Present Illness: Seen and examined on telemetry. Events noted, notes reviewed, , denies any chest pain or dyspnea, blood pressure remains elevated - Current Medication List Current Medications: Active Medications Current Medications Aspirin (Asa -) 81 mg PO DAILY COUNTS INCLUDE 234 BEDS AT THE [facility] Last Admin: 01/28/19 10:50 Dose: 81 mg Atorvastatin Calcium (Lipitor -) 40 mg PO [facility] Last Admin: 01/28/19 21:13 Dose: 40 mg Bupropion HCl (Wellbutrin Xl -) 150 mg PO DAILY COUNTS INCLUDE 234 BEDS AT THE [facility] Last Admin: 01/28/19 10:50 Dose: 150 mg Calcium Carbonate (Os-Jones 500mg -) 500 mg PO DAILY COUNTS INCLUDE 234 BEDS AT THE [facility] Last Admin: 01/28/19 10:50 Dose: 500 mg Cholecalciferol (Vitamin D3 -) 400 unit PO DAILY COUNTS INCLUDE 234 BEDS AT THE [facility] Last Admin: 01/28/19 10:50 Dose: 400 unit Famotidine (Pepcid -) 40 mg PO DAILY COUNTS INCLUDE 234 BEDS AT THE [facility] Last Admin: 01/28/19 10:50 Dose: 40 mg Lactobacillus Acidophilus (Bacid -) 1 tab PO DAILY COUNTS INCLUDE 234 BEDS AT THE [facility] Last Admin: 01/28/19 10:50 Dose: 1 tab Levothyroxine Sodium (Synthroid -) 75 mcg PO DAILY@0700 COUNTS INCLUDE 234 BEDS AT THE [facility] Last Admin: 01/29/19 05:59 Dose: 75 mcg Multivitamins/Minerals (Theragran-M) 1 each PO DAILY COUNTS INCLUDE 234 BEDS AT THE [facility] Last Admin: 01/28/19 10:50 Dose: 1 each Nebivolol (Bystolic -) 10 mg PO [facility] Last Admin: 01/28/19 21:13 Dose: 10 mg Tramadol HCl (Ultram -) 50 mg PO TID PRN PRN Reason: PAIN 4-6 Last Admin: 01/29/19 03:29 Dose: 50 mg Valsartan (Diovan -) 160 mg PO DAILY COUNTS INCLUDE 234 BEDS AT THE [facility] - Review of Systems Constitutional: denies: Chills, Fever Cardiovascular: As noted above Respiratory: denies: Cough or Hemoptysis Gastrointestinal: denies: Abdominal Pain, Constipation, Diarrhea, Melena, Nausea , Rectal Bleeding, Vomiting Musculoskeletal: denies: Back Pain Neurological: denies: Unsteady Gait, Weakness. denies: Dizziness, Headache, Seizure, Syncope - Objective Vital Signs: Last Vital Signs Temp Pulse Resp BP Pulse Ox 98.6 F 60 20 190/78 H 96 01/29/19 00:00 01/29/19 06:01 01/29/19 06:01 01/29/19 06:01 01/28/19 20:12 Intake & Output 01/26/19 01/27/19 01/28/19 01/29/19 23:59 23:59 23:59 23:59 Intake Total 260 Output Total 1 1 Balance 259 -1 Weight 138 lb 137 lb 8 oz HEENT: Atraumatic Neck: Supple Negative JVD Cardiovascular: S1 S2 Regular Rate and Rhythm Respiratory: Clear to A&P Gastrointestinal: Soft Benign Normal Bowel Sounds Ext: No Edema Labs: CBC, BMP 01/29/19 05:42 01/29/19 05:42 Hepatic Panel Total Bilirubin 1.0 mg/dL (0.2-1) 01/28/19 05:30 AST 21 U/L (15-37) 01/28/19 05:30 ALT 26 U/L (13-61) 01/28/19 05:30 Alkaline Phosphatase 66 U/L (45-117) 01/28/19 05:30 Albumin 3.6 g/dl (3.4-5.0) 01/28/19 05:30 INR, PTT INR 1.00 (0.83-1.09) 01/27/19 17:00 Assessment/Plan 1. Hypertensive urgency/hypertensive cardiovascular disease, labile BP 2. CAD post PCI/ZAINA- LAD angina pectoris stable 3. Diastolic dysfunction with clinical class 0 NYHA classification LV failure 4. Hyperlipidemia 5. Hypothyroidism 6. CKD PLAN: 1. Continue Diovan and may titrate dosage as needed- Diovan to 160 mg twice daily 2. Continue Bystolic and may titrate dosage as needed- Bystolic to 10 mg twice daily 3. Add HCTZ 4. Add Norvasc 5. Continue Lipitor 6. Continue ASA 7. Ambulate if asymptomatic with adequate blood pressure measurements may be D/ C home and F/U in the office Didier Sanz MD
[2019-01-29] MEDS: FAMOTIDINE 20 MG TABLET PO SCH (09:48)
[2019-01-29] MEDS: ASPIRIN 81 MG CHEWABLE TABLETS PO SCH (09:48)
[2019-01-29] MEDS: ESCITALOPRAM OXALATE 10 MG TABLET (FP) PO SCH (09:49)
[2019-01-29] MEDS: LACTOBACILLUS ACIDOPHILUS 1 TABLET PO SCH (09:49)
[2019-01-29] MEDS: CALCIUM (OYSTER SHELL) 500 MG TABLET (FP) PO SCH (09:49)
[2019-01-29] MEDS: MULTIVITAMINS THER W-MINERALS COMBO TABLET (FP) PO SCH (09:49)
[2019-01-29] MEDS ORDERED: HYDROCHLOROTHIAZIDE 25 MG TABLET (FP) PO SCH (10:00)
[2019-01-29] MEDS ORDERED: amLODIPine BESYLATE 5 MG TABLET (FP) PO SCH (10:00)
[2019-01-29] MEDS: CHOLECALCIFEROL (VIT D3) 400 UNIT (10 MCG) TABLET PO SCH (10:29)
--- NOTE | 2019-01-29 12:04 | DS ---
Physical Exam: SUBJECTIVE: Patient seen and examined. CP improved no SOB OBJECTIVE: Vital Signs Period Temp Pulse Resp BP Sys/Piper Pulse Ox Last 24 Hr 97.8 F-98.6 F 60-72 16-20 89-196/47-79 95-97 PHYSICAL EXAM GENERAL: The patient is awake, alert, and fully oriented, in no acute distress. HEAD: Normal with no signs of trauma. EYES: PERRL, extraocular movements intact, sclera anicteric, conjunctiva clear. No ptosis. ENT: oropharynx clear without exudates, moist mucous membranes. NECK: Trachea midline, full range of motion, supple. LUNGS: Breath sounds equal, clear to auscultation bilaterally, no wheezes, no crackles, no accessory muscle use. HEART: Regular rate and rhythm, S1, S2 without murmur, rub or gallop. ABDOMEN: Soft, nontender, nondistended, normoactive bowel sounds, no guarding, no rebound, no hepatosplenomegaly, no masses. EXTREMITIES: 2+ pulses, warm, well-perfused, no edema. NEUROLOGICAL: Cranial nerves II through XII grossly intact. Normal speech, gait not observed. strength 5/5, sensation intact PSYCH: Normal mood, normal affect. SKIN: Warm, dry, normal turgor, no rashes or lesions noted LABS Laboratory Results - last 24 hr 01/29/19 01/29/19 05:42 05:42 WBC 5.7 RBC 3.48 L Hgb 11.7 Hct 33.2 MCV 95.2 MCH 33.6 MCHC 35.3 RDW 13.4 Plt Count 208 MPV 8.3 Absolute Neuts (auto) 3.4 Neutrophils % 58.5 D Lymphocytes % 26.5 D Monocytes % 11.7 H D Eosinophils % 2.4 D Basophils % 0.9 Nucleated RBC % 0 Sodium 142 Potassium 4.2 Chloride 107 Carbon Dioxide 30 Anion Gap 5 L BUN 32.9 H Creatinine 1.0 Est GFR (CKD-EPI)AfAm 59.49 Est GFR (CKD-EPI)NonAf 51.33 Random Glucose 82 Calcium 9.1 HOSPITAL COURSE: Date of Admission:01/27/19 83 y.o. F PMH HTN, HLD, CAD, hypothyroidism presenting from home for chest pain and high blood pressure admitted for Chest pain, hypertensive urgency.EKG reviewed, no ischemia; trop neg x2. r/o'ed CA.echo EF 55% LV function normal. Poor study.stress test results from dr. berg was negative. Increased her home meds and per cardio:Continue Diovan 160 and may titrate dosage as needed- Diovan to 160 mg twice daily and also continue Bystolic 10 and may titrate dosage as needed- Bystolic to 10 mg twice daily. Initiallty cardio wanted to add Norvasc and HTZD but pt was orthostatic on admission and remained orthostatic during so decided against both agents for now. However will follow pt as o/p and will make changes as needed. Pt advised to follow a sodium restricted diet. Pt TSH was found to be low on admission; TSH 0.10 .home synthroid 100mcg daily reduced to 75mcg .F/u TSH o/p. Pt need VNS services for safe medication administration as pt as memory issues Date of Discharge: 01/29/19 Minutes to complete discharge: 35 Discharge Summary Problems reviewed: Yes Reason For Visit: CHEST PAIN, HYPERTENSIVE EMERGENCY Current Active Problems Chest pain (Acute) Coronary artery disease (Acute) Diastolic dysfunction (Acute) Hyperlipidemia (Acute) Hypertensive urgency (Acute) Hypothyroidism (Acute) Status post insertion of drug-eluting stent into left anterior descending (LAD) artery (Acute) Condition: Guarded - Instructions Diet, Activity, Other Instructions: You came into the ED because of high blood pressure and chest pain. We tested your blood for signs of heart attack which came back negative. We did an ekg and it also showed no signs of heart attack. We also did an ultrasound of your heart which was unremarkable. We did not do a stress test of your heart as your most recent was negative for low blood flow to your heart tissues. As for your blood pressure, we have made some changes to your medications to better control your pressure; ALSO please avoid foods high in salt (canned soup, chips, frozen foods) as this can also contribute to your blood pressure being uncontrolled. You get dizzy when you get up because your blood pressure tends to drop; please remain hydrated and safely rise from a sitting or lying down position to prevent you from getting dizzy and falling. Because of your recent weight loss and your blood level of your thyroid stimulating hormone (TSH) being low, we have decreased your synthroid dose to 75mcg in the morning on an empty stomach; please take this new dose and follow up with your primary care physician for repeat TSH levels. Medications: Please resume your home medications. HOWEVER, PLEASE FOLLOW THOSE NEW CHANGES: Please take Diovan 160 twice a day by mouth. Please take Bystolic 10 twice a day by mouth. Please take synthroid 75 mcg by mouth in the morning before you eat. To assist you with those changes, you will have a visiting nurse who will help you. Follow up: Please follow up with your primary care physician Telly within one week. Please follow up with cardiology Dr Moffett within one week. If you begin to experience worsening chest pain, blood pressures, shortness of breath, bleeding or severe headache or visual changes please return to the Emergency room immediately. Referrals: Didier Sanz MD [Staff Physician] - 1 Week Dario Varner MD [Primary Care Provider] - 1 Week - Home Medications Comprehensive Discharge Medication List: Ambulatory Orders Aspirin [ASA -] 81 mg PO DAILY 10/17/14 Bupropion HCl [Wellbutrin -] 150 mg PO DAILY 10/17/14 Lactobacillus Acidophilus [Probiotic] 1 cap PO DAILY 10/17/14 Tramadol HCl 50 mg PO TID PRN 10/17/14 Cholecalciferol (Vitamin D3) [Vitamin D -] 1 unit PO DAILY 01/02/16 Multivit-Min/Iron/Folic/Lutein [Centrum Silver Women Tablet] 1 each PO DAILY Atorvastatin Ca [Lipitor] 40 mg PO HS 12/27/18 Calcium Carbonate [Calcium] 600 mg PO DAILY 12/27/18 Famotidine [Pepcid] 40 mg PO DAILY 01/27/19 Escitalopram Oxalate [Lexapro -] 10 mg PO DAILY 01/28/19 Levothyroxine [Synthroid -] 75 mcg PO DAILY@0700 #30 tablet 01/29/19 Nebivolol [Bystolic -] 10 mg PO BID #60 tab 01/29/19 Valsartan [Diovan] 160 mg PO BID #60 tablet 01/29/19 Problem List - Problems (1) Chest pain Code(s): R07.9 - CHEST PAIN, UNSPECIFIED Qualifiers: Chest pain type: unspecified Qualified Code(s): R07.9 - Chest pain, unspecified (2) Coronary artery disease Code(s): I25.10 - ATHSCL HEART DISEASE OF [place] CORONARY ARTERY W/O ANG PCTRS Qualifiers: Coronary Disease-Associated Artery/Lesion type: [place]am artery [place] vs. transplanted heart: yu[place]av[place]am heart Associated angina: without angina Qualified Code(s): I25.10 - Atherosclerotic heart disease of [place] coronary artery without angina pectoris (3) Diastolic dysfunction Code(s): I51.89 - OTHER ILL-DEFINED HEART DISEASES (4) Hyperlipidemia Code(s): E78.5 - HYPERLIPIDEMIA, UNSPECIFIED Qualifiers: Hyperlipidemia type: pure hypercholesterolemia Qualified Code(s): E78.00 - Pure hypercholesterolemia, unspecified; E78.0 - Pure hypercholesterolemia (5) Hypertensive urgency Code(s): I16.0 - HYPERTENSIVE URGENCY (6) Hypothyroidism Code(s): E03.9 - HYPOTHYROIDISM, UNSPECIFIED Qualifiers: Hypothyroidism type: unspecified Qualified Code(s): E03.9 - Hypothyroidism , unspecified This patient is new to me today: No Emergency Visit: Yes ED Registration Date: 01/27/19 Care time: The patient presented to the Emergency Department on the above date and was hospitalized for further evaluation of their emergent condition. Critical Care patient: No - Discharge Referral Referred to [facility] Med P.C.: No ATTENDING PHYSICIAN STATEMENT I saw and evaluated the patient. I reviewed the resident's note and discussed the case with the resident. I agree with the resident's findings and plan as documented. SUBJECTIVE: OBJECTIVE: ASSESSMENT AND PLAN:
[2019-01-29] MEDS ORDERED: VALSARTAN 80 MG TABLET (UD) PO SCH (13:04)
--- NOTE | 2019-01-29 15:09 | PN ---
Physical Exam: SUBJECTIVE: Patient seen and examined. pt offered no complaints except for dizziness upon standing OBJECTIVE: Vital Signs Period Temp Pulse Resp BP Sys/Piper Pulse Ox Last 24 Hr 97.8 F-98.6 F 60-73 18-20 89-196/47-83 96-97 GENERAL: The patient is awake, alert, and fully oriented, in no acute distress. HEAD: Normal with no signs of trauma. EYES: PERRL, extraocular movements intact, sclera anicteric, conjunctiva clear. No ptosis. ENT: oropharynx clear without exudates, moist mucous membranes. NECK: Trachea midline, full range of motion, supple. LUNGS: Breath sounds equal, clear to auscultation bilaterally, no wheezes, no crackles, no accessory muscle use. HEART: Regular rate and rhythm, S1, S2 without murmur, rub or gallop. ABDOMEN: Soft, nontender, nondistended, normoactive bowel sounds, no guarding, no rebound, no hepatosplenomegaly, no masses. EXTREMITIES: 2+ pulses, warm, well-perfused, no edema. NEUROLOGICAL: Cranial nerves II through XII grossly intact. Normal speech, gait not observed. strength 5/5, sensation intact PSYCH: Normal mood, normal affect. SKIN: Warm, dry, normal turgor, no rashes or lesions noted Laboratory Results - last 24 hr 01/29/19 01/29/19 05:42 05:42 WBC 5.7 RBC 3.48 L Hgb 11.7 Hct 33.2 MCV 95.2 MCH 33.6 MCHC 35.3 RDW 13.4 Plt Count 208 MPV 8.3 Absolute Neuts (auto) 3.4 Neutrophils % 58.5 D Lymphocytes % 26.5 D Monocytes % 11.7 H D Eosinophils % 2.4 D Basophils % 0.9 Nucleated RBC % 0 Sodium 142 Potassium 4.2 Chloride 107 Carbon Dioxide 30 Anion Gap 5 L BUN 32.9 H Creatinine 1.0 Est GFR (CKD-EPI)AfAm 59.49 Est GFR (CKD-EPI)NonAf 51.33 Random Glucose 82 Calcium 9.1 Active Medications Generic Name Dose Route Start Last Admin Trade Name Freq PRN Reason Stop Dose Admin Aspirin 81 mg 01/28/19 10:00 01/29/19 09:48 Asa - PO 81 mg DAILY KATIE Administration Atorvastatin Calcium 40 mg 01/28/19 22:00 01/28/19 21:13 Lipitor - PO 40 mg HS KATIE Administration Bupropion HCl 150 mg 01/28/19 10:00 01/29/19 09:47 Wellbutrin Xl - PO 150 mg DAILY KATIE Administration Calcium Carbonate 500 mg 01/28/19 10:00 01/29/19 09:49 Os-Jones 500mg - PO 500 mg DAILY KATIE Administration Cholecalciferol 400 unit 01/28/19 10:00 01/29/19 10:29 Vitamin D3 - PO 400 unit DAILY KATIE Administration Escitalopram Oxalate 10 mg 01/29/19 10:00 01/29/19 09:49 Lexapro - PO 10 mg DAILY KATIE Administration Famotidine 40 mg 01/28/19 10:00 01/29/19 09:48 Pepcid - PO 40 mg DAILY KATIE Administration Lactobacillus Acidophilus 1 tab 01/28/19 10:00 01/29/19 09:49 Bacid - PO 1 tab DAILY KATIE Administration Levothyroxine Sodium 75 mcg 01/29/19 07:00 01/29/19 05:59 Synthroid - PO 75 mcg DAILY@0700 KATIE Administration Multivitamins/Minerals 1 each 01/28/19 10:00 01/29/19 09:49 Theragran-M PO 1 each DAILY KATIE Administration Nebivolol 10 mg 01/29/19 22:00 Bystolic - PO BID KATIE Tramadol HCl 50 mg 01/28/19 00:25 01/29/19 03:29 Ultram - PO 50 mg TID PRN Administration PAIN 4-6 Valsartan 160 mg 01/30/19 10:00 Diovan - PO DAILY [facility] ASSESSMENT/PLAN: 83 y.o. F PMH HTN, HLD, CAD, hypothyroidism presenting from home for chest pain and high blood pressure. Chest pain, hypertensive urgency improved from admission + orthostatics: Sitting 162/79 standing 142/67. will repeat still positive in the morning and afternoon. No need for fluid as pt doesnt look dry. likely autonomic in origin Per cardio Continue Diovan 160 qd, Bystolic 10 INCREASED to twice daily, Lipitor 40 qd, ASA 81 qd EKG reviewed, no ischemia; trop neg x2. r/o'ed MS continuous cardiac monitoring echo EF 55% LV function normal. Poor study stress test results from dr. berg was negative tramadol for pain HLD atorvastatin 40mg daily Hypothyroidism TSH 0.10 home synthroid 100mcg daily decreased to 75mcg F/u TSH o/p FEN no standing fluids monitor lytes na controlled diet DVT PPX Heparin SQ resumed all other home meds Problem List - Problems (1) Chest pain Code(s): R07.9 - CHEST PAIN, UNSPECIFIED Qualifiers: Chest pain type: unspecified Qualified Code(s): R07.9 - Chest pain, unspecified (2) Coronary artery disease Code(s): I25.10 - ATHSCL HEART DISEASE OF [place] CORONARY ARTERY W/O ANG PCTRS Qualifiers: Coronary Disease-Associated Artery/Lesion type: [place] artery [place] vs. transplanted heart: inupiat heart Associated angina: without angina Qualified Code(s): I25.10 - Atherosclerotic heart disease of [place] coronary artery without angina pectoris (3) Diastolic dysfunction Code(s): I51.89 - OTHER ILL-DEFINED HEART DISEASES (4) Hyperlipidemia Code(s): E78.5 - HYPERLIPIDEMIA, UNSPECIFIED Qualifiers: Hyperlipidemia type: pure hypercholesterolemia Qualified Code(s): E78.00 - Pure hypercholesterolemia, unspecified; E78.0 - Pure hypercholesterolemia (5) Hypertensive urgency Code(s): I16.0 - HYPERTENSIVE URGENCY (6) Hypothyroidism Code(s): E03.9 - HYPOTHYROIDISM, UNSPECIFIED Qualifiers: Hypothyroidism type: unspecified Qualified Code(s): E03.9 - Hypothyroidism , unspecified Visit type - Emergency Visit Emergency Visit: Yes ED Registration Date: 01/27/19 Care time: The patient presented to the Emergency Department on the above date and was hospitalized for further evaluation of their emergent condition. - New Patient This patient is new to me today: No - Critical Care Critical Care patient: No - Discharge Referral Referred to [facility] Med P.C.: No ATTENDING PHYSICIAN STATEMENT I saw and evaluated the patient. I reviewed the resident's note and discussed the case with the resident. I agree with the resident's findings and plan as documented. SUBJECTIVE: OBJECTIVE: ASSESSMENT AND PLAN:
--- NOTE | 2019-01-29 15:16 | PN ---
Teaching Attending Note Name of Resident: Sarah Bennett ATTENDING PHYSICIAN STATEMENT I saw and evaluated the patient. I reviewed the resident's note and discussed the case with the resident. I agree with the resident's findings and plan as documented. SUBJECTIVE: No fever or chills. felt dizzy with standing this am . OBJECTIVE: NAD, erythema on cheeks has improved Cv: RRR, no MRG. Lungs: CTAB Abd: soft, NT, ND, nL BS Ext: No edema or erythema. ASSESSMENT AND PLAN: 83 y/o lady with h/o CAD s/p ZAINA to LAD, diastolic dysfunction , HTN, HLP, hypothyroidism, and other medical issues who presented with HTN urgency. 1- Hypertensive urgency. - case was d/w card in details. she has orthostatic hypotension but her BP is very elevated. Dr. day's Recs in morning were before he saw the ortho VS. case was d/w Dr. Andrade who recommended increasing the bystolic to 10 BID will monitor the patient over night 2- CP : resolved, echo reviewed. cont aspirin and statin 3- H/o hypothyroidism, with induced hyperthyroidism. - cont decreased synthroid 75 mcg - repeat TFTs in 4-6 weeks. will reassess tomorrow
--- NOTE | 2019-01-29 15:36 | DS ---
Physical Exam: SUBJECTIVE: Patient seen and examined. pt offered no complaints, no chest pain, shortness of breath or headache OBJECTIVE: Vital Signs Period Temp Pulse Resp BP Sys/Piper Pulse Ox Last 24 Hr 97.8 F-98.6 F 60-73 18-20 89-190/47-83 96-97 PHYSICAL EXAM GENERAL: The patient is awake, alert, and fully oriented, in no acute distress. HEAD: Normal with no signs of trauma. EYES: PERRL, extraocular movements intact, sclera anicteric, conjunctiva clear. No ptosis. ENT: oropharynx clear without exudates, moist mucous membranes. NECK: Trachea midline, full range of motion, supple. LUNGS: Breath sounds equal, clear to auscultation bilaterally, no wheezes, no crackles, no accessory muscle use. HEART: Regular rate and rhythm, S1, S2 without murmur, rub or gallop. ABDOMEN: Soft, nontender, nondistended, normoactive bowel sounds, no guarding, no rebound, no hepatosplenomegaly, no masses. EXTREMITIES: 2+ pulses, warm, well-perfused, no edema. NEUROLOGICAL: Cranial nerves II through XII grossly intact. Normal speech, gait not observed. strength 5/5, sensation intact PSYCH: Normal mood, normal affect. SKIN: Warm, dry, normal turgor, no rashes or lesions noted LABS Laboratory Results - last 24 hr 01/29/19 01/29/19 05:42 05:42 WBC 5.7 RBC 3.48 L Hgb 11.7 Hct 33.2 MCV 95.2 MCH 33.6 MCHC 35.3 RDW 13.4 Plt Count 208 MPV 8.3 Absolute Neuts (auto) 3.4 Neutrophils % 58.5 D Lymphocytes % 26.5 D Monocytes % 11.7 H D Eosinophils % 2.4 D Basophils % 0.9 Nucleated RBC % 0 Sodium 142 Potassium 4.2 Chloride 107 Carbon Dioxide 30 Anion Gap 5 L BUN 32.9 H Creatinine 1.0 Est GFR (CKD-EPI)AfAm 59.49 Est GFR (CKD-EPI)NonAf 51.33 Random Glucose 82 Calcium 9.1 HOSPITAL COURSE: Date of Admission:01/27/19 83 y.o. F PMH HTN, HLD, CAD, hypothyroidism presenting from home for chest pain and high blood pressure admitted for Chest pain, hypertensive urgency.EKG reviewed, no ischemia; trop neg x2. r/o'ed [place].echo EF 55% LV function normal. Poor study.stress test results from dr. berg was negative. Increased her home meds and per cardio:Continue Diovan 160 and may titrate dosage as needed- Diovan to 160 mg twice daily and also continue Bystolic 10 twice daily. Initially cardio wanted to add Norvasc and HTZD but pt was orthostatic on admission and remained orthostatic during so decided against both agents for now. However will follow pt as o/p and will make changes as needed. Pt advised to follow a sodium restricted diet. Pt TSH was found to be low on admission; TSH 0.10 .home synthroid 100mcg daily reduced to 75mcg .F/u TSH o/p. Pt need VNS services for safe medication administration as pt as memory issues Date of Discharge: 01/29/19 Minutes to complete discharge: 35 <Sarah Bennett - Last Filed: 01/29/19 16:27> Discharge Summary Problems reviewed: Yes Reason For Visit: CHEST PAIN, HYPERTENSIVE EMERGENCY Current Active Problems Coronary artery disease (Chronic) Diastolic dysfunction (Chronic) Hyperlipidemia (Chronic) Hypothyroidism (Chronic) - Home Medications Comprehensive Discharge Medication List: Ambulatory Orders Aspirin [ASA -] 81 mg PO DAILY 10/17/14 Bupropion HCl [Wellbutrin -] 150 mg PO DAILY 10/17/14 Lactobacillus Acidophilus [Probiotic] 1 cap PO DAILY 10/17/14 Tramadol HCl 50 mg PO TID PRN 10/17/14 Cholecalciferol (Vitamin D3) [Vitamin D -] 1 unit PO DAILY 01/02/16 Multivit-Min/Iron/Folic/Lutein [Centrum Silver Women Tablet] 1 each PO DAILY Atorvastatin Ca [Lipitor] 40 mg PO HS 12/27/18 Calcium Carbonate [Calcium] 600 mg PO DAILY 12/27/18 Famotidine [Pepcid] 40 mg PO DAILY 01/27/19 Escitalopram Oxalate [Lexapro -] 10 mg PO DAILY 01/28/19 Levothyroxine [Synthroid -] 75 mcg PO DAILY@0700 #30 tablet 01/29/19 Nebivolol [Bystolic -] 10 mg PO BID #60 tab 01/29/19 Valsartan [Diovan] 160 mg PO DAILY #30 tablet 01/29/19 <Sarah Bennett - Last Filed: 01/29/19 16:27> - Home Medications Comprehensive Discharge Medication List: Ambulatory Orders Aspirin [ASA -] 81 mg PO DAILY 10/17/14 Bupropion HCl [Wellbutrin -] 150 mg PO DAILY 10/17/14 Lactobacillus Acidophilus [Probiotic] 1 cap PO DAILY 10/17/14 Tramadol HCl 50 mg PO TID PRN 10/17/14 Cholecalciferol (Vitamin D3) [Vitamin D -] 1 unit PO DAILY 01/02/16 Multivit-Min/Iron/Folic/Lutein [Centrum Silver Women Tablet] 1 each PO DAILY Atorvastatin Ca [Lipitor] 40 mg PO HS 12/27/18 Calcium Carbonate [Calcium] 600 mg PO DAILY 12/27/18 Famotidine [Pepcid] 40 mg PO DAILY 01/27/19 Escitalopram Oxalate [Lexapro -] 10 mg PO DAILY 01/28/19 Levothyroxine [Synthroid -] 75 mcg PO DAILY@0700 #30 tablet 01/29/19 Nebivolol [Bystolic -] 10 mg PO BID #60 tab 01/29/19 Valsartan [Diovan] 160 mg PO DAILY #30 tablet 01/29/19 <Baron Bryson - Last Filed: 01/30/19 14:03> Hospital Course: In addition to the hospital course in dr. Bennett note. patient complained of some pain in upper back. xray was done and showed old T10 Fx. this was noted on CT of T spine in 12/29. herneuro exam showed NL strength in LE proximally and distally. also normal sensation , but Knee jerks were 3+. she was referred to neuro sx fro out pt MRI. her VS today , done by me: BP 139/55 sitting and 100/50 standing. she was not symptomatic with this. spoke to SW to arrange VNS tomonitor MEds. dc home today Condition: Improved - Instructions Diet, Activity, Other Instructions: You came into the ED because of high blood pressure and chest pain. We tested your blood for signs of heart attack which came back negative. We did an ekg and it also showed no signs of heart attack. We also did an ultrasound of your heart which was unremarkable. We did not do a stress test of your heart as your most recent was negative for low blood flow to your heart tissues. As for your blood pressure, we have made some changes to your medications to better control your pressure; ALSO please avoid foods high in salt (canned soup, chips, frozen foods) as this can also contribute to your blood pressure being uncontrolled. You get dizzy when you get up because your blood pressure tends to drop; please remain hydrated and safely rise from a sitting or lying down position to prevent you from getting dizzy and falling. Because of your recent weight loss and your blood level of your thyroid stimulating hormone (TSH) being low, we have decreased your synthroid dose to 75mcg in the morning on an empty stomach; please take this new dose and follow up with your primary care physician for repeat TSH levels in 4-6 weeks Medications: Please resume your home medications. HOWEVER, PLEASE FOLLOW THOSE NEW CHANGES: Please take Diovan 160 once a day by mouth. Please take Bystolic 10 twice a day by mouth. Please take Synthroid 75 mcg by mouth in the morning before you eat. To assist you with those changes, you will have a visiting nurse who will help you. Follow up: Please follow up with your primary care physician Telly within one week. Please follow up with cardiology Dr. Moffett within one week. Please follow up with Dr. Gibbs, within one week, please discuss your Synthroid dose at this time. reepat thyroid function test in 4-6 weeks is important If you begin to experience worsening chest pain, blood pressures, shortness of breath, bleeding or severe headache or visual changes please return to the Emergency room immediately. Please follow up with Joe Blanca, the neuro surgeon who will evaluate your back Fracture at level T10. Referrals: Didier Sanz MD [Staff Physician] - 1 Week Thong Jung MD, FAANS [Staff Physician] - 2 Weeks Dario Varner MD [Primary Care Provider] - 1 Week Disposition: VNS/HOME HEALTH CARE Problem List - Problems (1) Chest pain Code(s): R07.9 - CHEST PAIN, UNSPECIFIED Qualifiers: Chest pain type: unspecified Qualified Code(s): R07.9 - Chest pain, unspecified (2) Coronary artery disease Code(s): I25.10 - ATHSCL HEART DISEASE OF [place] CORONARY ARTERY W/O ANG PCTRS Qualifiers: Coronary Disease-Associated Artery/Lesion type: [place] artery [place] vs. transplanted heart: [place] heart Associated angina: without angina Qualified Code(s): I25.10 - Atherosclerotic heart disease of [place] coronary artery without angina pectoris (3) Diastolic dysfunction Code(s): I51.89 - OTHER ILL-DEFINED HEART DISEASES (4) Hyperlipidemia Code(s): E78.5 - HYPERLIPIDEMIA, UNSPECIFIED Qualifiers: Hyperlipidemia type: pure hypercholesterolemia Qualified Code(s): E78.00 - Pure hypercholesterolemia, unspecified; E78.0 - Pure hypercholesterolemia (5) Hypertensive urgency Code(s): I16.0 - HYPERTENSIVE URGENCY (6) Hypothyroidism Code(s): E03.9 - HYPOTHYROIDISM, UNSPECIFIED Qualifiers: Hypothyroidism type: unspecified Qualified Code(s): E03.9 - Hypothyroidism , unspecified <Sarah Bennett - Last Filed: 01/29/19 16:27> This patient is new to me today: No Emergency Visit: Yes ED Registration Date: 01/27/19 Care time: The patient presented to the Emergency Department on the above date and was hospitalized for further evaluation of their emergent condition. Critical Care patient: No - Discharge Referral Referred to [facility] Med P.C.: No <Sarah Bennett - Last Filed: 01/29/19 16:27> ATTENDING PHYSICIAN STATEMENT I saw and evaluated the patient. I reviewed the resident's note and discussed the case with the resident. I agree with the resident's findings and plan as documented. SUBJECTIVE: OBJECTIVE: ASSESSMENT AND PLAN: <Sarah Bennett - Last Filed: 01/29/19 16:27> ATTENDING PHYSICIAN STATEMENT I saw and evaluated the patient. I reviewed the resident's note and discussed the case with the resident. I agree with the resident's findings and plan as documented. SUBJECTIVE: OBJECTIVE: ASSESSMENT AND PLAN: <Baron Bryson - Last Filed: 01/30/19 14:03>
[2019-01-29] MEDS: NEBIVOLOL 10 MG TABLET (FP) PO SCH (21:08)
[2019-01-29] MEDS: ATORVASTATIN CA 40 MG TABLET (FP) PO SCH (21:08)
[2019-01-29] MEDS ORDERED: MELATONIN 1 MG TABLET PO SCH (23:30)
[2019-01-30] MEDS ORDERED: LEVOTHYROXINE NA 75 MCG TABLET (FP) PO SCH (07:00)
[2019-01-30] MEDS: NEBIVOLOL 10 MG TABLET (FP) PO SCH (09:32)
[2019-01-30] MEDS: CALCIUM (OYSTER SHELL) 500 MG TABLET (FP) PO SCH (09:32)
[2019-01-30] MEDS: FAMOTIDINE 20 MG TABLET PO SCH (09:32)
[2019-01-30] MEDS: MULTIVITAMINS THER W-MINERALS COMBO TABLET (FP) PO SCH (09:33)
[2019-01-30] MEDS: ESCITALOPRAM OXALATE 10 MG TABLET (FP) PO SCH (09:33)
[2019-01-30] MEDS: ASPIRIN 81 MG CHEWABLE TABLETS PO SCH (09:35)
[2019-01-30] MEDS: CHOLECALCIFEROL (VIT D3) 400 UNIT (10 MCG) TABLET PO SCH (09:35)
[2019-01-30] MEDS: LACTOBACILLUS ACIDOPHILUS 1 TABLET PO SCH (09:36)
[2019-01-30] MEDS ORDERED: VALSARTAN 160 MG TABLET (UD) PO SCH (10:00)
--- NOTE | 2019-01-30 11:52 | PN ---
Progress Note, Physician History of Present Illness: Denies recurrent chest pain, NORTH and hypertension after medication adjustment. Orthostatic hypotension noted. - Current Medication List Current Medications: Active Medications Aspirin (Asa -) 81 mg PO DAILY [facility] Last Admin: 01/30/19 09:35 Dose: 81 mg Atorvastatin Calcium (Lipitor -) 40 mg PO HS [facility] Last Admin: 01/29/19 21:08 Dose: 40 mg Bupropion HCl (Wellbutrin Xl -) 150 mg PO DAILY [facility] Last Admin: 01/30/19 09:34 Dose: 150 mg Calcium Carbonate (Os-Jones 500mg -) 500 mg PO DAILY [facility] Last Admin: 01/30/19 09:32 Dose: 500 mg Cholecalciferol (Vitamin D3 -) 400 unit PO DAILY [facility] Last Admin: 01/30/19 09:35 Dose: 400 unit Escitalopram Oxalate (Lexapro -) 10 mg PO DAILY [facility] Last Admin: 01/30/19 09:33 Dose: 10 mg Famotidine (Pepcid -) 40 mg PO DAILY [facility] Last Admin: 01/30/19 09:32 Dose: 40 mg Lactobacillus Acidophilus (Bacid -) 1 tab PO DAILY [facility] Last Admin: 01/30/19 09:36 Dose: 1 tab Levothyroxine Sodium (Synthroid -) 75 mcg PO DAILY@0700 [facility] Last Admin: 01/30/19 06:18 Dose: 75 mcg Melatonin (Melatonin) 3 mg PO HS [facility] Last Admin: 01/29/19 23:36 Dose: 3 mg Multivitamins/Minerals (Theragran-M) 1 each PO DAILY [facility] Last Admin: 01/30/19 09:33 Dose: 1 each Nebivolol (Bystolic -) 10 mg PO BID [facility] Last Admin: 01/30/19 09:32 Dose: 10 mg Tramadol HCl (Ultram -) 50 mg PO TID PRN PRN Reason: PAIN 4-6 Last Admin: 01/29/19 21:08 Dose: 50 mg Valsartan (Diovan -) 160 mg PO DAILY [facility] Last Admin: 01/30/19 09:35 Dose: 160 mg - Objective Vital Signs: Vital Signs Temperature 98.0 F 01/30/19 08:27 Pulse Rate 61 01/30/19 08:27 Respiratory Rate 18 01/30/19 08:27 Blood Pressure 154/69 01/30/19 08:27 O2 Sat by Pulse Oximetry (%) 95 01/30/19 04:00 Constitutional: Yes: No Distress, Calm, Thin Neck: Yes: Supple Cardiovascular: Yes: Regular Rate and Rhythm Respiratory: Yes: Regular, CTA Bilaterally Gastrointestinal: Yes: Normal Bowel Sounds, Soft Edema: No Labs: CBC, BMP 01/29/19 05:42 01/29/19 05:42 INR, PTT INR 1.00 (0.83-1.09) 01/27/19 17:00 Problem List - Problems (1) Hypertensive urgency Code(s): I16.0 - HYPERTENSIVE URGENCY (2) Diastolic dysfunction Code(s): I51.89 - OTHER ILL-DEFINED HEART DISEASES (3) Hyperlipidemia Code(s): E78.5 - HYPERLIPIDEMIA, UNSPECIFIED Qualifiers: Hyperlipidemia type: pure hypercholesterolemia Qualified Code(s): E78.00 - Pure hypercholesterolemia, unspecified; E78.0 - Pure hypercholesterolemia (4) 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 transplanted heart: [place] heart Associated angina: without angina Qualified Code(s): I25.10 - Atherosclerotic heart disease of [place] coronary artery without angina pectoris (6) Chest pain Code(s): R07.9 - CHEST PAIN, UNSPECIFIED Qualifiers: Chest pain type: unspecified Qualified Code(s): R07.9 - Chest pain, unspecified (7) Hypothyroidism Code(s): E03.9 - HYPOTHYROIDISM, UNSPECIFIED Qualifiers: Hypothyroidism type: unspecified Qualified Code(s): E03.9 - Hypothyroidism , unspecified Assessment/Plan 01/28/2019 Echo: Mild cLVH, normal LV size and fxn, mild TR, mild-mod AR 11/30/2018 Lexiscan Myoview: No ischemia, normal LVEF 71% 07/12/2018 Echo: cLVH with normal LV size and fxn LVEF 65-70%, grade I diastolic dysfunction with normal filling pressures, mod LAE, normal RV size and fxn, mild AR, MR, mild-mod TR RVSP 34 mmHg 09/11/2017 Normal LV fxn LVEF>60%, mildly elevated right-sided pressures, normal LM, mid LAD 70%, ostial LAD-D1 70% s/p ZAINA, LCx and RCA luminal irregularities 1. Hypertensive urgency with labile BP 2. 1 vessel CAD s/p ZAINA LAD 3. Diastolic dysfunction 4. Hyperlipidemia 5. Hypothyroidism 6. CKD 7. Chronic T10 compression fracture P:1. Continue Diovan 160 qd, Bystolic 10 bid, Lipitor 40 qd, ASA 81 qd 2. Advised to change positions slowly 3. Synthroid dose per TSH 4. D/c planning, eventual f/u with Dr. Sanz
--- NOTE | 2019-01-30 14:10 | PN ---
Progress Note (short form) - Note Progress Note: Subjective: no SOB , no light headednes. no JONES. has discomfort in upper back . no recent fall at home Objective: Vital Signs: Last Vital Signs Temp Pulse Resp BP Pulse Ox 98.0 F 61 18 154/69 95 01/30/19 08:27 01/30/19 08:27 01/30/19 08:27 01/30/19 08:27 01/30/19 04:00 Physical Exam: NAD, Cv: RRR, no MRG. Lungs: CTAB Abd: soft, NT, ND, nL BS Ext: No edema or erythema. neuro of LE: strength 5./5 inuper and lower extremities proximally and distally. sensation to light touch NL. reflexes knee jerks 3+ b/l. TTP over lower thoracic spine ASSESSMENT AND PLAN: 83 y/o lady with h/o CAD s/p ZAINA to LAD, diastolic dysfunction , HTN, HLP, hypothyroidism, and other medical issues who presented with HTN urgency. 1- Hypertensive urgency. - BP improved. . And orthostasis has improved. on my exam today : BP sitting 139 /55, standing 100/50. she was not symptomatic and this drop is less than before - at dc will cont valsartan at 160 daily and Bystolic at 80 BID 2- CP : resolved, cont aspirin and statin. 3- H/o hypothyroidism, with induced hyperthyroidism. - cont decreased synthroid 75 mcg - repeat TFTs in 4-6 weeks. 4- back pain, xray obtained and reviewed. T 10 fx, old. CT of T spine in 12/29 was reviewed and fx was rpesent. due to hyperreflexia, will refer to Dr. Diaz as out pt for MRI and eval. dc home . sw for VNS. Visit type - Emergency Visit Emergency Visit: Yes ED Registration Date: 01/27/19 Care time: The patient presented to the Emergency Department on the above date and was hospitalized for further evaluation of their emergent condition. - New Patient This patient is new to me today: No - Critical Care Critical Care patient: No
[2019-01-30 15:06] VITALS: BP 142/72; PULSE 63; TEMP 98.2
== END 2019-01-30 16:41 | disposition home or self-care (01) ==
LOC: JER 16:30 → JERBED 19:36 → J4S 01-28 15:27
PROVIDERS: ADMIT Internal Medicine; ATTEND Internal Medicine
PROC: 3E013GC Introduction of Other Therapeutic Substance into Subcutaneous Tissue, Percutaneous Approach (ICD-10-PCS; principal; 2019-01-27)
DX: R07.89 Other chest pain (principal); I16.0 Hypertensive urgency; I51.89 Other ill-defined heart diseases; E78.5 Hyperlipidemia, unspecified; I10 Essential (primary) hypertension; I25.10 Atherosclerotic heart disease of native coronary artery without angina pectoris; K21.9 Gastro-esophageal reflux disease without esophagitis; E03.9 Hypothyroidism, unspecified; Z79.82 Long term (current) use of aspirin; Z82.49 Family history of ischemic heart disease and other diseases of the circulatory system; Z88.1 Allergy status to other antibiotic agents; Z88.2 Allergy status to sulfonamides; Z88.6 Allergy status to analgesic agent; Z91.041 Radiographic dye allergy status
CPT/HCPCS: 36415; 71046-TC-FY; 72070-TC-FY; 80048; 80053; 82550; 83735; 84100; 84443; 84484; 85025; 85027; 85610; 93005; 93010; 93306-TC; 96372; 99284-25; G0378; J1644

== ENCOUNTER 2020-06-29 18:11 | Observation (INO) | payer OTHER, MEDICARE ==
[2020-06-29] MEDS ORDERED: NEBIVOLOL 5 MG TABLET (FP) PO ONE (19:39)
[2020-06-29] MEDS ORDERED: ENALAPRIL MALEATE 5 MG TABLET PO ONE (19:39)
[2020-06-29] MEDS ORDERED: ENALAPRIL MALEATE 5 MG TABLET ONE (20:19)
[2020-06-29 20:40] LABS: BASO % 0.6 % (0-2.0); EOS % 1.1 % (0-4.5); HEMATOCRIT 37.9 % (32.4-45.2); HEMOGLOBIN 12.6 GM/dL (10.7-15.3); LYMPH % 14.5 % (8-40); MCHC 33.2 g/dl (32.0-36.0); MEAN CELL VOLUME 96.5 fl (80-96); MEAN PLT VOLUME 8.2 fl (7.5-11.1); MONO % 9.3 % (3.8-10.2); NEUT % 74.5 % (42.8-82.8); PLATELET COUNT 273 K/MM3 (134-434); RBC 3.93 M/mm3 (3.60-5.2); RDW 13.4 % (11.6-15.6)
[2020-06-29 20:49] LABS: INR 0.9 (0.83-1.09); PROTHROMBIN TIME (PATIENT) 11.1 SEC (9.7-13.0)
[2020-06-29 20:52] LABS: ACTIVATED PTT 26.4 SECONDS (25.2-36.5)
[2020-06-29 21:06] LABS: CHLORIDE 110 mmol/L (98-107); SODIUM 141 mmol/L (136-145)
[2020-06-29 21:07] LABS: CALCIUM 9.7 mg/dL (8.5-10.1)
[2020-06-29 21:08] LABS: ALBUMIN 3.5 g/dl (3.4-5.0); BLOOD UREA NITROGEN 37.5 mg/dL (7-18); CO2 27 mmol/L (21-32); GLUCOSE,RANDOM 83 mg/dL (74-106)
[2020-06-29 21:11] LABS: CHOLESTEROL 138 mg/dL (50-200); CREATININE 1.1 mg/dL (0.55-1.3); SGOT/AST 51 U/L (15-37); SGPT/ALT 35 U/L (13-61)
[2020-06-29 21:12] LABS: TRIGLYCERIDES 102 mg/dL (0-150)
[2020-06-29 21:13] LABS: LDL CHOLESTEROL (ONLY SJRH) 52 mg/dL (5-100); TOT PROT 6.5 g/dl (6.4-8.2)
[2020-06-29 21:14] LABS: ALK PHOS 68 U/L (45-117); HDL CHOLESTEROL 86 mg/dL (40-60)
[2020-06-29 21:17] LABS: BILIRUBIN,TOTAL 0.5 mg/dL (0.2-1)
[2020-06-29 21:21] LABS: ANION GAP 4 MMOL/L (8-16)
[2020-06-29 21:23] LABS: POTASSIUM 6.2 mmol/L (3.5-5.1)
[2020-06-29 22:17] LABS: POTASSIUM 4.6 mmol/L (3.5-5.1)
[2020-06-29 22:19] LABS: ALBUMIN 3.4 g/dl (3.4-5.0); BLOOD UREA NITROGEN 36.1 mg/dL (7-18); CALCIUM 9.4 mg/dL (8.5-10.1)
[2020-06-29 22:22] LABS: CREATININE 1.1 mg/dL (0.55-1.3)
[2020-06-29 22:24] LABS: BILIRUBIN,TOTAL 0.5 mg/dL (0.2-1); TOT PROT 5.9 g/dl (6.4-8.2)
[2020-06-30] MEDS: HEPARIN NA (PORCINE) 5,000 UNITS/ML 1ML VIAL SQ SCH ×3 (02:33→17:08)
[2020-06-30] MEDS ORDERED: HEPARIN NA (PORCINE) 5,000 UNITS/ML 1ML VIAL ONE (02:34)
[2020-06-30] MEDS ORDERED: ACETAMINOPHEN 500 MG TABLET (FP) PO ONE (03:42)
[2020-06-30 08:08] LABS: BASO % 0.9 % (0-2.0); EOS % 1.9 % (0-4.5); HEMATOCRIT 34.5 % (32.4-45.2); HEMOGLOBIN 11.6 GM/dL (10.7-15.3); LYMPH % 18.7 % (8-40); MCH 32.7 pg (25.7-33.7); MCHC 33.8 g/dl (32.0-36.0); MEAN CELL VOLUME 96.9 fl (80-96); MEAN PLT VOLUME 8.4 fl (7.5-11.1); MONO % 10.2 % (3.8-10.2); NEUT % 68.3 % (42.8-82.8); PLATELET COUNT 222 K/MM3 (134-434); RBC 3.56 M/mm3 (3.60-5.2); RDW 13.3 % (11.6-15.6); WHITE BLOOD COUNT 7.4 K/mm3 (4.0-10.0)
[2020-06-30 08:16] LABS: POTASSIUM 4.5 mmol/L (3.5-5.1)
[2020-06-30 08:19] LABS: ALBUMIN 3.2 g/dl (3.4-5.0); BLOOD UREA NITROGEN 33.8 mg/dL (7-18); MAGNESIUM 2.3 mg/dL (1.8-2.4)
[2020-06-30 08:23] LABS: BILIRUBIN,TOTAL 0.9 mg/dL (0.2-1); PHOSPHOROUS 3.5 mg/dL (2.5-4.9); TOT PROT 5.4 g/dl (6.4-8.2)
[2020-06-30] MEDS ORDERED: SODIUM CHLORIDE 0.45% 1,000 ML IV SCH (13:30)
[2020-06-30] MEDS: MIDODRINE HCL 5 MG TABLET PO SCH ×2 (14:06→21:20)
[2020-06-30] MEDS ORDERED: PT OWN MED DRAWER 7, Y5N ONE (17:01)
[2020-06-30] MEDS ORDERED: ENALAPRIL MALEATE 5 MG TABLET PO SCH (18:00)
[2020-06-30 18:42] LABS: BASO % 1.3 % (0-2.0); EOS % 1.6 % (0-4.5); HEMATOCRIT 33.6 % (32.4-45.2); HEMOGLOBIN 11.3 GM/dL (10.7-15.3); LYMPH % 17.4 % (8-40); MCH 32.5 pg (25.7-33.7); MCHC 33.7 g/dl (32.0-36.0); MEAN CELL VOLUME 96.6 fl (80-96); MONO % 10.1 % (3.8-10.2); NEUT % 69.6 % (42.8-82.8); PLATELET COUNT 231 K/MM3 (134-434); RBC 3.47 M/mm3 (3.60-5.2); RDW 13.3 % (11.6-15.6); WHITE BLOOD COUNT 5.9 K/mm3 (4.0-10.0)
[2020-06-30 19:07] LABS: POTASSIUM 4.3 mmol/L (3.5-5.1)
[2020-06-30 19:09] LABS: BLOOD UREA NITROGEN 34.1 mg/dL (7-18); CALCIUM 8.9 mg/dL (8.5-10.1); MAGNESIUM 2.3 mg/dL (1.8-2.4)
[2020-06-30 19:13] LABS: CREATININE 1.2 mg/dL (0.55-1.3)
[2020-06-30 19:14] LABS: BILIRUBIN,TOTAL 0.5 mg/dL (0.2-1); TOT PROT 5.4 g/dl (6.4-8.2)
[2020-06-30] MEDS ORDERED: NEBIVOLOL 5 MG TABLET (FP) PO SCH (20:00)
[2020-06-30] MEDS ORDERED: ACETAMINOPHEN 325 MG TABLET (FP) PO ONE (21:05)
[2020-06-30 23:49] LABS: EPI CELLS 21 /uL (0-25.1); HYALINE CASTS 0 /uL (0-3.1); PH,URINE 6.5 (5.0-8.0); URINE APPEARANCE CLEAR; URINE BACTERIA >9,000 /uL (0-1359); URINE BILIRUBIN NEGATIVE (NEGATIVE); URINE COLOR YELLOW; URINE GLUCOSE (UA) NEGATIVE (NEGATIVE); URINE KETONE NEGATIVE (NEGATIVE); URINE LEUK ESTERASE TRACE (NEGATIVE); URINE NITRITE NEGATIVE (NEGATIVE); URINE PROTEIN NEGATIVE (NEGATIVE); URINE RBC 6 /uL (0-23.9); URINE UROBILINOGEN 0.2 mg/dL (0.2-1.0); URINE WBC 63 /uL (0-25.8)
[2020-07-01] MEDS: HEPARIN NA (PORCINE) 5,000 UNITS/ML 1ML VIAL SQ SCH ×3 (01:04→17:38)
[2020-07-01] MEDS: LEVOTHYROXINE NA 75 MCG TABLET (FP) PO SCH (06:11)
[2020-07-01] MEDS ORDERED: LEVOTHYROXINE NA 100 MCG TABLET (FP) PO SCH (07:00)
[2020-07-01 08:07] LABS: BASO % 0.9 % (0-2.0); EOS % 2.1 % (0-4.5); HEMATOCRIT 33.8 % (32.4-45.2); HEMOGLOBIN 11.5 GM/dL (10.7-15.3); LYMPH % 20.7 % (8-40); MCH 32.9 pg (25.7-33.7); MCHC 34.1 g/dl (32.0-36.0); MEAN CELL VOLUME 96.7 fl (80-96); MEAN PLT VOLUME 7.7 fl (7.5-11.1); MONO % 10.3 % (3.8-10.2); PLATELET COUNT 219 K/MM3 (134-434); RDW 13.1 % (11.6-15.6); WHITE BLOOD COUNT 6.2 K/mm3 (4.0-10.0)
[2020-07-01 08:25] LABS: BILIRUBIN,TOTAL 0.8 mg/dL (0.2-1); BLOOD UREA NITROGEN 25.3 mg/dL (7-18); CALCIUM 8.5 mg/dL (8.5-10.1); CREATININE 0.8 mg/dL (0.55-1.3); POTASSIUM 4.3 mmol/L (3.5-5.1); TOT PROT 5.5 g/dl (6.4-8.2)
[2020-07-01] MEDS ORDERED: PT OWN MED DRAWER 7, Y5N ONE ×3 (09:37→17:33)
[2020-07-01] MEDS: ASPIRIN COATED 81 MG TABLET.EC PO SCH (09:55)
[2020-07-01] MEDS: MIDODRINE HCL 5 MG TABLET PO SCH ×2 (09:55→13:20)
[2020-07-01] MEDS: NEBIVOLOL 2.5 MG TABLET (FP) PO SCH (09:55)
[2020-07-01] MEDS ORDERED: buPROPion HCL 75 MG TABLET PO SCH (10:00)
[2020-07-01] MEDS ORDERED: ENALAPRIL MALEATE 5 MG TABLET PO SCH (18:00)
[2020-07-01] MEDS ORDERED: NEBIVOLOL 5 MG TABLET (FP) PO SCH (20:00)
[2020-07-02] MEDS: HEPARIN NA (PORCINE) 5,000 UNITS/ML 1ML VIAL SQ SCH ×2 (01:08→09:28)
[2020-07-02] MEDS: LEVOTHYROXINE NA 75 MCG TABLET (FP) PO SCH (06:10)
[2020-07-02] MEDS ORDERED: PT OWN MED DRAWER 7, Y5N ONE (09:21)
[2020-07-02] MEDS: NEBIVOLOL 2.5 MG TABLET (FP) PO SCH (09:27)
[2020-07-02] MEDS: ASPIRIN COATED 81 MG TABLET.EC PO SCH (09:27)
[2020-07-02] MEDS: MIDODRINE HCL 5 MG TABLET PO SCH ×2 (09:27→14:57)
[2020-07-02 13:16] VITALS: BMI 22.6
[2020-07-02 13:53] VITALS: BP 130/49; PULSE 78; TEMP 98.1
== END 2020-07-02 16:45 | disposition home or self-care (01) ==
LOC: JERFT 18:11 → JER 18:11 → JERBED 22:45 → INTOOBSV 22:45 → J4S 06-30 03:24
PROVIDERS: ADMIT Internal Medicine; ATTEND Nurse Practitioner Family
PROC: 3E023GC Introduction of Other Therapeutic Substance into Muscle, Percutaneous Approach (ICD-10-PCS; principal; 2020-06-29)
PROC: 3E0337Z Introduction of Electrolytic and Water Balance Substance into Peripheral Vein, Percutaneous Approach (ICD-10-PCS; 2020-06-29)
DX: I13.10 Hypertensive heart and chronic kidney disease without heart failure, with stage 1 through stage 4 chronic kidney disease, or unspecified chronic kidney disease (principal); I25.10 Atherosclerotic heart disease of native coronary artery without angina pectoris; E03.9 Hypothyroidism, unspecified; F45.8 Other somatoform disorders; I10 Essential (primary) hypertension; I95.1 Orthostatic hypotension; I11.9 Hypertensive heart disease without heart failure; N18.9 Chronic kidney disease, unspecified; Z87.81 Personal history of (healed) traumatic fracture; E87.5 Hyperkalemia; R79.89 Other specified abnormal findings of blood chemistry; R29.898 Other symptoms and signs involving the musculoskeletal system; Z29.9 Encounter for prophylactic measures, unspecified; Z88.8 Allergy status to other drugs, medicaments and biological substances
CPT/HCPCS: 36415; 70450-TC; 70551-TC; 73090-TC-LT-FY; 73110-TC-LT-FY; 73130-TC-LT-FY; 76775-TC; 80053; 80061; 81003; 82550; 83036; 83090; 83721; 83735; 84100; 84439; 84443; 84484; 85025; 85610; 85730; 86850; 86900; 86901; 93005; 93010; 93306-TC; 93880-TC; 96360; 96372; 99285-25; C9803; G0378; J1644; U0003

== ENCOUNTER 2021-04-01 17:17 | Inpatient (IN) | payer OTHER, MEDICARE ==
[2021-04-01 19:19] LABS: BASO % 1.1 % (0-2.0); EOS % 4.4 % (0-4.5); HEMATOCRIT 33.7 % (32.4-45.2); HEMOGLOBIN 11.3 GM/dL (10.7-15.3); LYMPH % 20.1 % (8-40); MCH 32.8 pg (25.7-33.7); MCHC 33.7 g/dl (32.0-36.0); MEAN CELL VOLUME 97.5 fl (80-96); MEAN PLT VOLUME 8.1 fl (7.5-11.1); MONO % 12.8 % (3.8-10.2); NEUT % 61.6 % (42.8-82.8); PLATELET COUNT 250 10^3/uL (134-434); RBC 3.45 M/mm3 (3.60-5.2); RDW 13.3 % (11.6-15.6); WHITE BLOOD COUNT 6.7 K/mm3 (4.0-10.0)
[2021-04-01 19:25] LABS: INR 0.99 (0.83-1.09); PROTHROMBIN TIME (PATIENT) 11.6 SEC (9.7-13.0)
[2021-04-01 19:37] LABS: CHLORIDE 109 mmol/L (98-107); SODIUM 143 mmol/L (136-145)
[2021-04-01 19:40] LABS: ALBUMIN 3.3 g/dl (3.4-5.0); ANION GAP 5 MMOL/L (8-16); BLOOD UREA NITROGEN 38.1 mg/dL (7-18); CALCIUM 9.3 mg/dL (8.5-10.1); CO2 29 mmol/L (21-32)
[2021-04-01 19:41] LABS: GLUCOSE,RANDOM 87 mg/dL (74-106); MAGNESIUM 2.5 mg/dL (1.8-2.4)
[2021-04-01 19:43] LABS: CREATININE 1.1 mg/dL (0.55-1.3); SGPT/ALT 29 U/L (13-61)
[2021-04-01 19:44] LABS: SGOT/AST 29 U/L (15-37)
[2021-04-01 19:45] LABS: BILIRUBIN,TOTAL 0.3 mg/dL (0.2-1)
[2021-04-01 19:46] LABS: ALK PHOS 68 U/L (45-117)
[2021-04-01] MEDS ORDERED: PATIENT'S OWN MEDICATION (NON-FORMULARY) (Denosumab 60 MG/ML Disp.Syrin) SQ SCH (23:00)
[2021-04-02] MEDS ORDERED: ACETAMINOPHEN 325 MG TABLET (FP) ONE (01:34)
[2021-04-02] MEDS ORDERED: ACETAMINOPHEN 325 MG TABLET (FP) PO STA (01:34)
[2021-04-02 02:00] LABS: EPI CELLS 15 /uL (0-25.1); HYALINE CASTS 1 /uL (0-3.1); URINE APPEARANCE CLEAR; URINE BACTERIA 60 /uL (0-1359); URINE BILIRUBIN NEGATIVE (NEGATIVE); URINE COLOR YELLOW; URINE GLUCOSE (UA) NEGATIVE (NEGATIVE); URINE KETONE NEGATIVE (NEGATIVE); URINE LEUK ESTERASE 1+ (NEGATIVE); URINE NITRITE NEGATIVE (NEGATIVE); URINE PROTEIN NEGATIVE (NEGATIVE); URINE RBC 11 /uL (0-23.9); URINE UROBILINOGEN 0.2 mg/dL (0.2-1.0); URINE WBC 94 /uL (0-25.8)
[2021-04-02 04:33] VITALS: BMI 25.0
[2021-04-02] MEDS: LEVOTHYROXINE NA 75 MCG TABLET (FP) PO SCH (07:00)
[2021-04-02 08:28] LABS: BLOOD UREA NITROGEN 32.9 mg/dL (7-18); CALCIUM 8.8 mg/dL (8.5-10.1); MAGNESIUM 2.5 mg/dL (1.8-2.4); TOT PROT 5.5 g/dl (6.4-8.2)
[2021-04-02 08:29] LABS: BILIRUBIN,TOTAL 0.6 mg/dL (0.2-1)
[2021-04-02 08:30] LABS: CREATININE 0.9 mg/dL (0.55-1.3)
[2021-04-02] MEDS: ASPIRIN 81 MG CHEWABLE TABLETS PO SCH (09:36)
[2021-04-02] MEDS: ENOXAPARIN NA (PORCINE) 40 MG/0.4 ML DISP.SYRIN SQ SCH (09:36)
[2021-04-02] MEDS ORDERED: FAMOTIDINE 40 MG TABLET PO SCH (10:00)
[2021-04-02] MEDS ORDERED: LISINOPRIL 20 MG TABLET PO ONE (11:01)
[2021-04-02] MEDS: HYDROCHLOROTHIAZIDE 12.5 MG CAPSULE (FP) PO SCH (18:32)
[2021-04-02] MEDS ORDERED: NEBIVOLOL 5 MG TABLET (FP) PO SCH (22:00)
[2021-04-02] MEDS ORDERED: ATORVASTATIN CA 40 MG TABLET (FP) PO SCH (22:00)
[2021-04-02] MEDS ORDERED: ACETAMINOPHEN 325 MG TABLET (FP) PO ONE (23:16)
[2021-04-03] MEDS: LEVOTHYROXINE NA 75 MCG TABLET (FP) PO SCH (06:35)
[2021-04-03 07:23] LABS: BASO % 1.5 % (0-2.0); EOS % 5.3 % (0-4.5); HEMATOCRIT 33.9 % (32.4-45.2); HEMOGLOBIN 11.4 GM/dL (10.7-15.3); LYMPH % 22.1 % (8-40); MCH 32.4 pg (25.7-33.7); MCHC 33.5 g/dl (32.0-36.0); MEAN CELL VOLUME 96.8 fl (80-96); MEAN PLT VOLUME 7.8 fl (7.5-11.1); MONO % 11.5 % (3.8-10.2); NEUT % 59.6 % (42.8-82.8); PLATELET COUNT 231 10^3/uL (134-434); RDW 13.2 % (11.6-15.6); WHITE BLOOD COUNT 5.4 K/mm3 (4.0-10.0)
[2021-04-03 07:48] LABS: CALCIUM 8.8 mg/dL (8.5-10.1)
[2021-04-03 07:49] LABS: BLOOD UREA NITROGEN 25.6 mg/dL (7-18); MAGNESIUM 2.6 mg/dL (1.8-2.4)
[2021-04-03 07:52] LABS: PHOSPHOROUS 3.3 mg/dL (2.5-4.9)
[2021-04-03] MEDS: ASPIRIN 81 MG CHEWABLE TABLETS PO SCH (09:27)
[2021-04-03] MEDS: HYDROCHLOROTHIAZIDE 12.5 MG CAPSULE (FP) PO SCH (09:27)
[2021-04-03] MEDS: ENOXAPARIN NA (PORCINE) 40 MG/0.4 ML DISP.SYRIN SQ SCH (09:28)
[2021-04-03] MEDS ORDERED: LISINOPRIL 20 MG TABLET PO SCH (10:00)
[2021-04-03 14:52] VITALS: BP 115/71; PULSE 68; TEMP 98.3
== END 2021-04-03 17:38 | disposition home or self-care (01) | DRG 310 ==
LOC: JER 17:17 → JERBED 21:56 → OBSVTOIN 22:48 → J4W 04-02 03:34
PROVIDERS: ADMIT Internal Medicine; ATTEND Internal Medicine
DX: R00.1 Bradycardia, unspecified (principal); E03.9 Hypothyroidism, unspecified; I10 Essential (primary) hypertension; E78.5 Hyperlipidemia, unspecified; R06.01 Orthopnea; T42.6X5A Adverse effect of other antiepileptic and sedative-hypnotic drugs, initial encounter; Y92.89 Other specified places as the place of occurrence of the external cause
CPT/HCPCS: 36415; 71045-TC-FY; 71260-TC; 80048; 80053; 81003; 82550; 82962; 83735; 83880; 84100; 84443; 84484; 85025; 85610; 93005; 93010; 93306-TC; 99285-25; C9803; G0378; U0003; U0005

== ENCOUNTER 2021-07-15 13:00 | Inpatient (IN) | payer OTHER, MEDICARE ==
[2021-07-15 15:22] LABS: BASO % 0.4 % (0-2.0); EOS % 1.3 % (0-4.5); HEMATOCRIT 38.1 % (32.4-45.2); HEMOGLOBIN 12.7 GM/dL (10.7-15.3); LYMPH % 10.6 % (8-40); MCH 32.3 pg (25.7-33.7); MCHC 33.4 g/dl (32.0-36.0); MEAN CELL VOLUME 96.8 fl (80-96); MONO % 8.3 % (3.8-10.2); NEUT % 79.4 % (42.8-82.8); PLATELET COUNT 217 10^3/uL (134-434); RBC 3.93 M/mm3 (3.60-5.2); RDW 13.8 % (11.6-15.6); WHITE BLOOD COUNT 7.1 K/mm3 (4.0-10.0)
[2021-07-15] MEDS ORDERED: LIDOCAINE HCL 1%, 10 MG/ML (20ML VIAL) ONE (15:22)
[2021-07-15 15:45] LABS: ALBUMIN 3.3 g/dl (3.4-5.0); BLOOD UREA NITROGEN 32.3 mg/dL (7-18); CALCIUM 9.3 mg/dL (8.5-10.1)
[2021-07-15 15:48] LABS: CREATININE 1.2 mg/dL (0.55-1.3)
[2021-07-15 15:50] LABS: BILIRUBIN,TOTAL 0.6 mg/dL (0.2-1); TOT PROT 6.1 g/dl (6.4-8.2)
[2021-07-15 15:53] LABS: N-TERMINAL BNP 417.5 pg/ml (5-450)
[2021-07-15] MEDS ORDERED: FUROSEMIDE 40 MG/4 ML INJECTABLE VIAL IVPUSH ONE (19:03)
[2021-07-15] MEDS ORDERED: FUROSEMIDE 40 MG/4 ML INJECTABLE VIAL ONE (19:11)
[2021-07-15 23:22] VITALS: BMI 33.6
[2021-07-16] MEDS: LISINOPRIL 5 MG TABLET PO SCH ×2 (00:34→21:29)
[2021-07-16] MEDS: ATORVASTATIN CA 40 MG TABLET (FP) PO SCH ×2 (00:34→21:29)
[2021-07-16] MEDS: MIRTAZAPINE 15 MG TABLET (FP) PO SCH ×2 (00:34→21:29)
[2021-07-16] MEDS ORDERED: ACETAMINOPHEN 1000 MG/100 ML BAG IVPB ONE (03:37)
[2021-07-16] MEDS ORDERED: ACETAMINOPHEN 325 MG TABLET (FP) PO ONE (03:58)
[2021-07-16] MEDS ORDERED: hydrALAZINE HCL 20 MG/ML VIAL IVPUSH ONE (04:01)
[2021-07-16] MEDS: LEVOTHYROXINE NA 75 MCG TABLET (FP) PO SCH (06:35)
[2021-07-16 06:49] LABS: BASO % 1.1 % (0-2.0); EOS % 3.1 % (0-4.5); HEMATOCRIT 36.9 % (32.4-45.2); HEMOGLOBIN 12.4 GM/dL (10.7-15.3); LYMPH % 21.6 % (8-40); MCH 32.7 pg (25.7-33.7); MCHC 33.7 g/dl (32.0-36.0); MEAN PLT VOLUME 7.9 fl (7.5-11.1); MONO % 10.4 % (3.8-10.2); NEUT % 63.8 % (42.8-82.8); PLATELET COUNT 230 10^3/uL (134-434); RDW 13.5 % (11.6-15.6)
[2021-07-16 07:07] LABS: CALCIUM 9.6 mg/dL (8.5-10.1); MAGNESIUM 2.4 mg/dL (1.8-2.4)
[2021-07-16 07:09] LABS: ALBUMIN 3.6 g/dl (3.4-5.0); BLOOD UREA NITROGEN 35.5 mg/dL (7-18)
[2021-07-16 07:11] LABS: CREATININE 1.1 mg/dL (0.55-1.3)
[2021-07-16 07:12] LABS: PHOSPHOROUS 4.2 mg/dL (2.5-4.9)
[2021-07-16 07:14] LABS: BILIRUBIN,TOTAL 0.9 mg/dL (0.2-1)
[2021-07-16] MEDS ORDERED: FUROSEMIDE 40 MG/4 ML INJECTABLE VIAL IVPUSH ONE (08:09)
[2021-07-16] MEDS: FAMOTIDINE 10 MG TABLET PO SCH (09:58)
[2021-07-16] MEDS: LISINOPRIL 20 MG TABLET PO SCH (09:58)
[2021-07-16] MEDS: ENOXAPARIN NA (PORCINE) 40 MG/0.4 ML DISP.SYRIN SQ SCH (09:59)
[2021-07-16] MEDS ORDERED: NITROGLYCERIN 0.2 MG/HOUR TD PATCH TD SCH ×2 (10:00→22:00)
[2021-07-16] MEDS ORDERED: PATIENT'S OWN MEDICATION (NON-FORMULARY) (Famotidine [Pepcid] 40 MG Tablet) PO SCH (10:00)
[2021-07-16] MEDS ORDERED: CARVEDILOL 3.125 MG TABLET (FP) PO SCH (10:00)
[2021-07-16] MEDS: ASPIRIN COATED 81 MG TABLET.EC PO SCH (18:51)
[2021-07-16] MEDS: hydrALAZINE HCL 25 MG TABLET (FP) PO SCH (21:29)
[2021-07-16] MEDS ORDERED: ACETAMINOPHEN 1000 MG/100 ML BAG IVPB PRN (21:37)
[2021-07-17] MEDS: LEVOTHYROXINE NA 75 MCG TABLET (FP) PO SCH (06:28)
[2021-07-17 07:14] LABS: HEMATOCRIT 34.5 % (32.4-45.2); HEMOGLOBIN 11.7 GM/dL (10.7-15.3); MCH 32.8 pg (25.7-33.7); MEAN CELL VOLUME 96.5 fl (80-96); MEAN PLT VOLUME 7.8 fl (7.5-11.1); PLATELET COUNT 207 10^3/uL (134-434); RBC 3.57 M/mm3 (3.60-5.2); RDW 13.5 % (11.6-15.6); WHITE BLOOD COUNT 6.8 K/mm3 (4.0-10.0)
[2021-07-17 07:36] LABS: CALCIUM 8.9 mg/dL (8.5-10.1)
[2021-07-17 07:37] LABS: ALBUMIN 2.9 g/dl (3.4-5.0); BLOOD UREA NITROGEN 38.5 mg/dL (7-18); MAGNESIUM 2.4 mg/dL (1.8-2.4)
[2021-07-17 07:40] LABS: CREATININE 1.2 mg/dL (0.55-1.3)
[2021-07-17 07:41] LABS: TOT PROT 5.5 g/dl (6.4-8.2)
[2021-07-17 07:42] LABS: BILIRUBIN,TOTAL 0.7 mg/dL (0.2-1)
[2021-07-17] MEDS: ASPIRIN COATED 81 MG TABLET.EC PO SCH (09:27)
[2021-07-17] MEDS: FAMOTIDINE 10 MG TABLET PO SCH (09:27)
[2021-07-17] MEDS: ENOXAPARIN NA (PORCINE) 40 MG/0.4 ML DISP.SYRIN SQ SCH (09:27)
[2021-07-17] MEDS: LISINOPRIL 20 MG TABLET PO SCH (09:38)
[2021-07-17] MEDS: hydrALAZINE HCL 25 MG TABLET (FP) PO SCH (09:38)
[2021-07-17] MEDS ORDERED: FUROSEMIDE 40 MG/4 ML INJECTABLE VIAL IVPUSH ONE (10:50)
[2021-07-17 14:58] VITALS: TEMP 98.2
[2021-07-17 17:53] VITALS: BP 151/71; PULSE 70
== END 2021-07-17 17:00 | disposition home or self-care (01) | DRG 291 ==
LOC: JER 13:00 → OBSVTOIN 16:45 → JERBED 16:45 → J2W 22:43
PROVIDERS: ADMIT Specialist; ATTEND Internal Medicine
DX: I11.0 Hypertensive heart disease with heart failure (principal); I50.33 Acute on chronic diastolic (congestive) heart failure; E78.5 Hyperlipidemia, unspecified; E03.9 Hypothyroidism, unspecified; I25.10 Atherosclerotic heart disease of native coronary artery without angina pectoris; Z98.61 Coronary angioplasty status; I16.0 Hypertensive urgency; I95.1 Orthostatic hypotension; R00.1 Bradycardia, unspecified; I65.29 Occlusion and stenosis of unspecified carotid artery
CPT/HCPCS: 36415; 71045-TC-FY; 73590-TC-LT-FY; 73610-TC-LT-FY; 73630-TC-LT; 80053; 80061; 82962; 83735; 83880; 84100; 84484; 85025; 85027; 93005; 93010; 93306-TC; 93970-TC; 97116-GP; 97161-GP; 99285-25; C9803-CS; U0003; U0005

== ENCOUNTER 2021-09-05 17:55 | Emergency (ER) | payer OTHER, MEDICARE ==
[2021-09-05 18:22] VITALS: PULSE 74; TEMP 98.1; BMI 26.5
[2021-09-05] MEDS ORDERED: SODIUM CHLORIDE 0.9% 1000 ML INFUS.BAG IV ONE (19:26)
[2021-09-05 21:09] LABS: BASO % 0.7 % (0-2.0); HEMATOCRIT 40.4 % (32.4-45.2); HEMOGLOBIN 13.6 GM/dL (10.7-15.3); MCH 32.7 pg (25.7-33.7); MCHC 33.6 g/dl (32.0-36.0); MEAN CELL VOLUME 97.1 fl (80-96); MEAN PLT VOLUME 8.2 fl (7.5-11.1); MONO % 7.2 % (3.8-10.2); NEUT % 77.1 % (42.8-82.8); PLATELET COUNT 260 10^3/uL (134-434); RBC 4.16 M/mm3 (3.60-5.2); RDW 13.1 % (11.6-15.6); WHITE BLOOD COUNT 8.8 K/mm3 (4.0-10.0)
[2021-09-05 21:22] LABS: CALCIUM 10.2 mg/dL (8.5-10.1)
[2021-09-05 21:23] LABS: ALBUMIN 4.2 g/dl (3.4-5.0); BLOOD UREA NITROGEN 50.1 mg/dL (7-18)
[2021-09-05 21:26] LABS: CREATININE 1.3 mg/dL (0.55-1.3)
[2021-09-05 21:27] LABS: TOT PROT 7.1 g/dl (6.4-8.2)
[2021-09-05 21:28] LABS: BILIRUBIN,TOTAL 0.7 mg/dL (0.2-1)
[2021-09-05 22:29] VITALS: BP 140/90
== END 2021-09-05 22:29 | disposition home or self-care (01) ==
LOC: JER 17:55
DX: R42 Dizziness and giddiness (principal); I10 Essential (primary) hypertension
CPT/HCPCS: 36415; 71046-TC-FY; 80053; 84484; 85025; 93005; 93010; 99285-25

== ENCOUNTER 2021-12-05 14:36 | Inpatient (IN) | payer OTHER, MEDICARE ==
[2021-12-05 15:05] VITALS: BMI 25.7
[2021-12-05] MEDS ORDERED: ACETAMINOPHEN 1000 MG/100 ML BAG IVPB ONE (15:37)
[2021-12-05] MEDS ORDERED: ACETAMINOPHEN INJECTION 100 ML IVPB ONE (16:41)
[2021-12-05 17:07] LABS: BASO % 0.2 % (0-2.0); EOS % 0.1 % (0-4.5); HEMATOCRIT 37.5 % (32.4-45.2); HEMOGLOBIN 12.4 GM/dL (10.7-15.3); LYMPH % 5.9 % (8-40); MCH 32.2 pg (25.7-33.7); MEAN CELL VOLUME 97.5 fl (80-96); MEAN PLT VOLUME 8.5 fl (7.5-11.1); MONO % 6.6 % (3.8-10.2); NEUT % 87.2 % (42.8-82.8); PLATELET COUNT 266 10^3/uL (134-434); RBC 3.84 M/mm3 (3.60-5.2); RDW 14.2 % (11.6-15.6); WHITE BLOOD COUNT 13.5 K/mm3 (4.0-10.0)
[2021-12-05 17:19] LABS: INR 0.96 (0.83-1.09)
[2021-12-05 17:23] LABS: ACTIVATED PTT 24.1 SECONDS (25.2-36.5)
[2021-12-05 17:27] LABS: CHLORIDE 107 mmol/L (98-107); SODIUM 140 mmol/L (136-145)
[2021-12-05 17:28] LABS: CALCIUM 9.4 mg/dL (8.5-10.1)
[2021-12-05 17:29] LABS: ALBUMIN 3.3 g/dl (3.4-5.0); ANION GAP 9 MMOL/L (8-16); BLOOD UREA NITROGEN 51.7 mg/dL (7-18); CO2 23 mmol/L (21-32); GLUCOSE,RANDOM 150 mg/dL (74-106); MAGNESIUM 2.3 mg/dL (1.8-2.4)
[2021-12-05 17:32] LABS: CREATININE 1.3 mg/dL (0.55-1.3); SGOT/AST 41 U/L (15-37); SGPT/ALT 36 U/L (13-61)
[2021-12-05 17:34] LABS: BILIRUBIN,TOTAL 0.7 mg/dL (0.2-1)
[2021-12-05 17:35] LABS: ALK PHOS 51 U/L (45-117)
[2021-12-05] MEDS ORDERED: SODIUM CHLORIDE 0.9% 500 ML INFUS.BAG IV ONE (18:40)
[2021-12-05 18:46] LABS: EPI CELLS 21 /uL (0-25.1); HYALINE CASTS 1 /uL (0-3.1); PH,URINE 5.5 (5.0-8.0); URINE APPEARANCE CLEAR; URINE BACTERIA >9,000 /uL (0-1359); URINE BILIRUBIN NEGATIVE (NEGATIVE); URINE COLOR YELLOW; URINE GLUCOSE (UA) NEGATIVE (NEGATIVE); URINE KETONE NEGATIVE (NEGATIVE); URINE LEUK ESTERASE 1+ (NEGATIVE); URINE NITRITE NEGATIVE (NEGATIVE); URINE PROTEIN NEGATIVE (NEGATIVE); URINE RBC 14 /uL (0-23.9); URINE UROBILINOGEN 0.2 mg/dL (0.2-1.0); URINE WBC 96 /uL (0-25.8)
[2021-12-05 19:44] LABS: ANISOCYTOSIS 0; MACROCYTOSIS 0
[2021-12-05] MEDS ORDERED: CEFTRIAXONE 1,000 MG in DEXTROSE 5%-WATER - 50 ML IVPB ONE (20:47)
[2021-12-05] MEDS ORDERED: CEFTRIAXONE 1 GM/50 ML BAG ONE (21:26)
[2021-12-06] MEDS: MEROPENEM 1 GM in DEXTROSE 5%-WATER 100 ML IVPB SCH ×2 (01:20→12:15)
[2021-12-06] MEDS ORDERED: ACETAMINOPHEN 1000 MG/100 ML BAG IVPB ONE (01:43)
[2021-12-06] MEDS ORDERED: MELATONIN 5 MG TABLETS PO ONE ×2 (01:43→22:52)
[2021-12-06] MEDS ORDERED: MEROPENEM 1 GM VIAL (RESTRICTED TO ID) IVPB ONE (01:47)
[2021-12-06] MEDS: SODIUM CHLORIDE 1,000 ML IV SCH ×2 (02:07→18:56)
[2021-12-06] MEDS: LEVOTHYROXINE NA 75 MCG TABLET (FP) PO SCH (06:28)
[2021-12-06] MEDS: HEPARIN NA (PORCINE) 5,000 UNITS/ML 1ML VIAL SQ SCH ×3 (06:28→21:14)
[2021-12-06 06:57] LABS: BASO % 0.3 % (0-2.0); EOS % 0.1 % (0-4.5); HEMATOCRIT 35.1 % (32.4-45.2); HEMOGLOBIN 11.7 GM/dL (10.7-15.3); LYMPH % 7.5 % (8-40); MCH 32.3 pg (25.7-33.7); MCHC 33.2 g/dl (32.0-36.0); MEAN CELL VOLUME 97.2 fl (80-96); MEAN PLT VOLUME 8.1 fl (7.5-11.1); MONO % 8.3 % (3.8-10.2); NEUT % 83.8 % (42.8-82.8); PLATELET COUNT 220 10^3/uL (134-434); RBC 3.61 M/mm3 (3.60-5.2); RDW 13.9 % (11.6-15.6); WHITE BLOOD COUNT 11.5 K/mm3 (4.0-10.0)
[2021-12-06 07:03] LABS: CALCIUM 9.2 mg/dL (8.5-10.1)
[2021-12-06 07:04] LABS: BLOOD UREA NITROGEN 44.1 mg/dL (7-18); MAGNESIUM 2.1 mg/dL (1.8-2.4)
[2021-12-06 07:07] LABS: PHOSPHOROUS 3.4 mg/dL (2.5-4.9)
[2021-12-06] MEDS: ASPIRIN 81 MG CHEWABLE TABLETS PO SCH (09:42)
[2021-12-06] MEDS: LISINOPRIL 10 MG TABLET PO SCH (09:43)
[2021-12-06] MEDS: ACETAMINOPHEN 325 MG TABLET (FP) PO PRN ×2 (10:15→21:13)
[2021-12-06] MEDS: LIDOCAINE 5% TOPICAL PATCH TP SCH (12:12)
[2021-12-06] MEDS: ATORVASTATIN CA 40 MG TABLET (FP) PO SCH (21:13)
[2021-12-06] MEDS: LIDOCAINE PATCH REMOVAL MC SCH (21:23)
[2021-12-07] MEDS: SODIUM CHLORIDE 1,000 ML IV SCH (00:26)
[2021-12-07] MEDS: MEROPENEM 1 GM in DEXTROSE 5%-WATER 100 ML IVPB SCH ×3 (00:26→23:23)
[2021-12-07] MEDS: HEPARIN NA (PORCINE) 5,000 UNITS/ML 1ML VIAL SQ SCH ×3 (06:32→21:15)
[2021-12-07] MEDS: LEVOTHYROXINE NA 75 MCG TABLET (FP) PO SCH (06:32)
[2021-12-07] MEDS: ACETAMINOPHEN 325 MG TABLET (FP) PO PRN ×3 (07:06→21:15)
[2021-12-07] MEDS: LIDOCAINE 5% TOPICAL PATCH TP SCH (09:25)
[2021-12-07] MEDS: LISINOPRIL 10 MG TABLET PO SCH (09:25)
[2021-12-07] MEDS: ASPIRIN 81 MG CHEWABLE TABLETS PO SCH (09:25)
[2021-12-07 09:40] LABS: BASO % 0.2 % (0-2.0); EOS % 0.6 % (0-4.5); HEMATOCRIT 34.4 % (32.4-45.2); HEMOGLOBIN 11.4 GM/dL (10.7-15.3); MCH 33.1 pg (25.7-33.7); MCHC 33.3 g/dl (32.0-36.0); MEAN CELL VOLUME 99.3 fl (80-96); MONO % 5.3 % (3.8-10.2); NEUT % 86.9 % (42.8-82.8); PLATELET COUNT 211 10^3/uL (134-434); RBC 3.46 M/mm3 (3.60-5.2)
[2021-12-07 09:56] LABS: ALBUMIN 2.8 g/dl (3.4-5.0); CALCIUM 8.6 mg/dL (8.5-10.1); MAGNESIUM 2.3 mg/dL (1.8-2.4)
[2021-12-07 09:59] LABS: CREATININE 0.9 mg/dL (0.55-1.3); PHOSPHOROUS 2.7 mg/dL (2.5-4.9)
[2021-12-07 10:01] LABS: BILIRUBIN,TOTAL 0.6 mg/dL (0.2-1); TOT PROT 5.3 g/dl (6.4-8.2)
[2021-12-07] MEDS: AMINO ACIDS/PROTEIN HYDROLYS 30 ML LIQUID.PKT PO SCH (18:21)
[2021-12-07] MEDS: ATORVASTATIN CA 40 MG TABLET (FP) PO SCH (21:14)
[2021-12-07] MEDS: LIDOCAINE PATCH REMOVAL MC SCH (21:16)
[2021-12-08] MEDS: MELATONIN 5 MG TABLETS PO PRN ×2 (00:48→21:49)
[2021-12-08] MEDS: HEPARIN NA (PORCINE) 5,000 UNITS/ML 1ML VIAL SQ SCH ×3 (06:24→21:49)
[2021-12-08] MEDS: LEVOTHYROXINE NA 75 MCG TABLET (FP) PO SCH (06:24)
[2021-12-08 07:37] LABS: CALCIUM 8.7 mg/dL (8.5-10.1)
[2021-12-08 07:39] LABS: ALBUMIN 2.8 g/dl (3.4-5.0); MAGNESIUM 2.4 mg/dL (1.8-2.4)
[2021-12-08 07:41] LABS: BLOOD UREA NITROGEN 32.2 mg/dL (7-18)
[2021-12-08 07:42] LABS: CREATININE 0.7 mg/dL (0.55-1.3)
[2021-12-08 07:44] LABS: BILIRUBIN,TOTAL 0.7 mg/dL (0.2-1); TOT PROT 5.1 g/dl (6.4-8.2)
[2021-12-08 07:51] LABS: HEMATOCRIT 33.3 % (32.4-45.2); HEMOGLOBIN 11.3 GM/dL (10.7-15.3); MCH 33.3 pg (25.7-33.7); MEAN PLT VOLUME 7.9 fl (7.5-11.1); PLATELET COUNT 213 10^3/uL (134-434); RDW 13.9 % (11.6-15.6); WHITE BLOOD COUNT 10.4 K/mm3 (4.0-10.0)
[2021-12-08 08:42] LABS: ANISOCYTOSIS 0; HELMET CELLS 0; HOWELL-JOLLY BODIES 0; MACROCYTOSIS 0; OVALOCYTE 0; ROULEAU 0; SICKELED CELLS 0; TARGET CELLS 0; TEAR DROP CELLS 0; TOXIC GRANULATION 0
[2021-12-08] MEDS: LIDOCAINE 5% TOPICAL PATCH TP SCH (09:13)
[2021-12-08] MEDS: AMINO ACIDS/PROTEIN HYDROLYS 30 ML LIQUID.PKT PO SCH ×2 (09:13→17:03)
[2021-12-08] MEDS: ASPIRIN 81 MG CHEWABLE TABLETS PO SCH (09:15)
[2021-12-08] MEDS: LISINOPRIL 10 MG TABLET PO SCH (09:15)
[2021-12-08] MEDS: ACETAMINOPHEN 325 MG TABLET (FP) PO PRN (09:15)
[2021-12-08] MEDS: MEROPENEM 1 GM in DEXTROSE 5%-WATER 100 ML IVPB SCH (11:00)
[2021-12-08] MEDS ORDERED: ACETAMINOPHEN 1000 MG/100 ML BAG IVPB PRN (11:23)
[2021-12-08] MEDS ORDERED: ACETAMINOPHEN 325 MG TABLET (FP) PO PRN (11:26)
[2021-12-08] MEDS: traMADol HCL 50 MG TABLET PO PRN ×2 (11:42→21:48)
[2021-12-08] MEDS: LIDOCAINE PATCH REMOVAL MC SCH (21:48)
[2021-12-08] MEDS: ATORVASTATIN CA 40 MG TABLET (FP) PO SCH (21:49)
[2021-12-09] MEDS: LEVOTHYROXINE NA 75 MCG TABLET (FP) PO SCH (06:12)
[2021-12-09] MEDS: HEPARIN NA (PORCINE) 5,000 UNITS/ML 1ML VIAL SQ SCH ×2 (06:12→19:22)
[2021-12-09 07:35] LABS: HEMOGLOBIN 11.3 GM/dL (10.7-15.3); MCHC 34.1 g/dl (32.0-36.0); MEAN CELL VOLUME 96.6 fl (80-96); MEAN PLT VOLUME 7.9 fl (7.5-11.1); PLATELET COUNT 221 10^3/uL (134-434); RBC 3.41 M/mm3 (3.60-5.2); RDW 14.1 % (11.6-15.6); WHITE BLOOD COUNT 10.6 K/mm3 (4.0-10.0)
[2021-12-09 08:00] LABS: ALBUMIN 2.7 g/dl (3.4-5.0); BLOOD UREA NITROGEN 40.5 mg/dL (7-18); CALCIUM 9.1 mg/dL (8.5-10.1); MAGNESIUM 2.4 mg/dL (1.8-2.4)
[2021-12-09 08:03] LABS: CREATININE 0.7 mg/dL (0.55-1.3)
[2021-12-09 08:06] LABS: BILIRUBIN,TOTAL 0.8 mg/dL (0.2-1); TOT PROT 5.2 g/dl (6.4-8.2)
[2021-12-09] MEDS: AMINO ACIDS/PROTEIN HYDROLYS 30 ML LIQUID.PKT PO SCH ×2 (08:40→17:33)
[2021-12-09] MEDS: LIDOCAINE 5% TOPICAL PATCH TP SCH (10:14)
[2021-12-09] MEDS: ASPIRIN 81 MG CHEWABLE TABLETS PO SCH (10:15)
[2021-12-09] MEDS: ERTAPENEM SODIUM 1 GM in SODIUM CHLORIDE 50 ML IVPB SCH (10:16)
[2021-12-09] MEDS: LISINOPRIL 10 MG TABLET PO SCH (10:16)
[2021-12-09 11:07] LABS: ANISOCYTOSIS 2+; MACROCYTOSIS 0; OVALOCYTE 2+; TEAR DROP CELLS 1+
[2021-12-09] MEDS: traMADol HCL 50 MG TABLET PO PRN ×2 (14:33→20:24)
[2021-12-09] MEDS: MELATONIN 5 MG TABLETS PO PRN (20:24)
[2021-12-09] MEDS: LIDOCAINE PATCH REMOVAL MC SCH (21:04)
[2021-12-09] MEDS: ATORVASTATIN CA 40 MG TABLET (FP) PO SCH (21:04)
[2021-12-10] MEDS: LEVOTHYROXINE NA 75 MCG TABLET (FP) PO SCH (06:39)
[2021-12-10 07:46] LABS: HEMATOCRIT 33.8 % (32.4-45.2); HEMOGLOBIN 11.4 GM/dL (10.7-15.3); MCHC 33.6 g/dl (32.0-36.0); MEAN CELL VOLUME 98.2 fl (80-96); MEAN PLT VOLUME 8.8 fl (7.5-11.1); PLATELET COUNT 217 10^3/uL (134-434); RBC 3.45 M/mm3 (3.60-5.2); RDW 13.9 % (11.6-15.6); WHITE BLOOD COUNT 9.5 K/mm3 (4.0-10.0)
[2021-12-10 08:03] LABS: ALBUMIN 2.9 g/dl (3.4-5.0); BLOOD UREA NITROGEN 42.7 mg/dL (7-18); CALCIUM 9.4 mg/dL (8.5-10.1); MAGNESIUM 2.7 mg/dL (1.8-2.4)
[2021-12-10] MEDS: AMINO ACIDS/PROTEIN HYDROLYS 30 ML LIQUID.PKT PO SCH ×2 (08:05→17:27)
[2021-12-10 08:06] LABS: CREATININE 0.7 mg/dL (0.55-1.3); TOT PROT 5.6 g/dl (6.4-8.2)
[2021-12-10 08:07] LABS: BILIRUBIN,TOTAL 0.8 mg/dL (0.2-1)
[2021-12-10 09:47] LABS: ANISOCYTOSIS 0; MACROCYTOSIS 0
[2021-12-10] MEDS: ERTAPENEM SODIUM 1 GM in SODIUM CHLORIDE 50 ML IVPB SCH (10:01)
[2021-12-10] MEDS: LIDOCAINE 5% TOPICAL PATCH TP SCH (10:01)
[2021-12-10] MEDS: ASPIRIN 81 MG CHEWABLE TABLETS PO SCH ×2 (10:03→10:07)
[2021-12-10] MEDS: LISINOPRIL 10 MG TABLET PO SCH (10:03)
[2021-12-10 18:23] VITALS: BP 158/76; PULSE 69; RESP 19; TEMP 98.5
[2021-12-10] MEDS ORDERED: HEPARIN NA (PORCINE) 5,000 UNITS/ML 1ML VIAL SQ SCH (22:00)
== END 2021-12-10 19:10 | DRG 690 ==
LOC: JER 14:36 → JERBED 21:23 → OBSVTOIN 23:18 → JERBED 23:18 → J4S 12-06 02:17
PROVIDERS: ADMIT Internal Medicine; ATTEND Nurse Practitioner Family
DX: N39.0 Urinary tract infection, site not specified (principal); I13.0 Hypertensive heart and chronic kidney disease with heart failure and stage 1 through stage 4 chronic kidney disease, or unspecified chronic kidney disease; I50.32 Chronic diastolic (congestive) heart failure; E86.0 Dehydration; R55 Syncope and collapse; I25.10 Atherosclerotic heart disease of native coronary artery without angina pectoris; E78.5 Hyperlipidemia, unspecified; E03.9 Hypothyroidism, unspecified; Z98.61 Coronary angioplasty status; B96.1 Klebsiella pneumoniae [K. pneumoniae] as the cause of diseases classified elsewhere; D72.829 Elevated white blood cell count, unspecified; N18.9 Chronic kidney disease, unspecified; K21.9 Gastro-esophageal reflux disease without esophagitis
CPT/HCPCS: 36415; 70450-TC; 71250-TC; 72125-TC; 72128-TC; 72131-TC; 80048; 80053; 80061; 81003; 83735; 84100; 84484; 85025; 85610; 85730; 86850; 86900; 86901; 87086; 87186; 93005; 93010; 93880-TC; 97116-GP; 97161-GP; 99285-25; C9803-CS; G0378; J1644; U0003; U0005

== ENCOUNTER 2022-01-12 20:31 | Inpatient (IN) | payer OTHER, MEDICARE ==
[2022-01-12] MEDS: SODIUM CHLORIDE 1,000 ML IV SCH (21:04)
[2022-01-12 21:30] LABS: BASO % 0.8 % (0-2.0); EOS % 0.8 % (0-4.5); HEMATOCRIT 36.2 % (32.4-45.2); HEMOGLOBIN 12.3 GM/dL (10.7-15.3); LYMPH % 11.8 % (8-40); MCH 33.4 pg (25.7-33.7); MCHC 33.9 g/dl (32.0-36.0); MEAN CELL VOLUME 98.5 fl (80-96); MEAN PLT VOLUME 6.8 fl (7.5-11.1); MONO % 10.7 % (3.8-10.2); NEUT % 75.9 % (42.8-82.8); PLATELET COUNT 430 10^3/uL (134-434); RBC 3.68 M/mm3 (3.60-5.2); RDW 14.9 % (11.6-15.6); WHITE BLOOD COUNT 7.3 K/mm3 (4.0-10.0)
[2022-01-12] MEDS ORDERED: ACETAMINOPHEN INJECTION 100 ML IVPB ONE (21:31)
[2022-01-12] MEDS ORDERED: ACETAMINOPHEN 1000 MG/100 ML BAG IVPB ONE (21:31)
[2022-01-12 21:38] LABS: INR 0.98 (0.83-1.09); PROTHROMBIN TIME (PATIENT) 11.3 SEC (9.7-13.0)
[2022-01-12 21:56] LABS: ALBUMIN 3.2 g/dl (3.4-5.0); BLOOD UREA NITROGEN 23.8 mg/dL (7-18); CALCIUM 8.9 mg/dL (8.5-10.1)
[2022-01-12 22:00] LABS: BILIRUBIN,TOTAL 0.5 mg/dL (0.2-1); TOT PROT 5.9 g/dl (6.4-8.2)
[2022-01-12] MEDS ORDERED: LISINOPRIL 5 MG TABLET PO ONE (22:45)
[2022-01-12 22:49] LABS: EPI CELLS 9 /uL (0-25.1); HYALINE CASTS 2 /uL (0-3.1); PH,URINE 5.5 (5.0-8.0); URINE APPEARANCE CLEAR; URINE BACTERIA 10 /uL (0-1359); URINE BILIRUBIN NEGATIVE (NEGATIVE); URINE COLOR YELLOW; URINE GLUCOSE (UA) NEGATIVE (NEGATIVE); URINE KETONE NEGATIVE (NEGATIVE); URINE LEUK ESTERASE NEGATIVE (NEGATIVE); URINE NITRITE NEGATIVE (NEGATIVE); URINE PROTEIN NEGATIVE (NEGATIVE); URINE RBC 50 /uL (0-23.9); URINE UROBILINOGEN 0.2 mg/dL (0.2-1.0); URINE WBC 8 /uL (0-25.8)
[2022-01-12] MEDS ORDERED: LISINOPRIL 5 MG TABLET ONE (22:51)
[2022-01-12] MEDS ORDERED: traMADol HCL 50 MG TABLET ONE (23:38)
[2022-01-12] MEDS ORDERED: traMADol HCL 50 MG TABLET PO ONE (23:50)
[2022-01-13] MEDS ORDERED: LABETALOL HCL 5 MG/1 ML (100MG/20 ML VIAL) IVPUSH ONE (00:17)
[2022-01-13 07:19] LABS: BASO % 0.8 % (0-2.0); EOS % 1.3 % (0-4.5); HEMATOCRIT 33.9 % (32.4-45.2); HEMOGLOBIN 11.3 GM/dL (10.7-15.3); LYMPH % 16.9 % (8-40); MCH 32.9 pg (25.7-33.7); MCHC 33.2 g/dl (32.0-36.0); MEAN CELL VOLUME 98.9 fl (80-96); MONO % 10.6 % (3.8-10.2); NEUT % 70.4 % (42.8-82.8); PLATELET COUNT 394 10^3/uL (134-434); RBC 3.43 M/mm3 (3.60-5.2); RDW 14.9 % (11.6-15.6)
[2022-01-13 07:47] LABS: ALBUMIN 3.1 g/dl (3.4-5.0)
[2022-01-13 07:49] LABS: BLOOD UREA NITROGEN 21.3 mg/dL (7-18); CALCIUM 8.5 mg/dL (8.5-10.1); MAGNESIUM 2.3 mg/dL (1.8-2.4)
[2022-01-13 07:51] LABS: CREATININE 0.8 mg/dL (0.55-1.3)
[2022-01-13 07:52] LABS: PHOSPHOROUS 2.7 mg/dL (2.5-4.9)
[2022-01-13 07:53] LABS: BILIRUBIN,TOTAL 0.7 mg/dL (0.2-1); TOT PROT 5.6 g/dl (6.4-8.2)
[2022-01-13] MEDS ORDERED: HEPARIN NA (PORCINE) 5,000 UNITS/ML 1ML VIAL ONE ×2 (09:00→15:00)
[2022-01-13] MEDS: HEPARIN NA (PORCINE) 5,000 UNITS/ML 1ML VIAL SQ SCH ×2 (09:04→15:01)
[2022-01-13] MEDS ORDERED: ACETAMINOPHEN 325 MG TABLET (FP) ONE (18:59)
[2022-01-13] MEDS: ACETAMINOPHEN 325 MG TABLET (FP) PO PRN (19:03)
[2022-01-13] MEDS ORDERED: traMADol HCL 50 MG TABLET PO STA (21:29)
[2022-01-13] MEDS ORDERED: traMADol HCL 50 MG TABLET ONE (21:34)
[2022-01-14 04:58] VITALS: BMI 24.5
[2022-01-14] MEDS: HEPARIN NA (PORCINE) 5,000 UNITS/ML 1ML VIAL SQ SCH ×4 (05:16→21:42)
[2022-01-14] MEDS: SODIUM CHLORIDE 1,000 ML IV SCH (05:16)
[2022-01-14] MEDS ORDERED: amLODIPine BESYLATE 5 MG TABLET (FP) PO ONE (07:00)
[2022-01-14] MEDS ORDERED: LEVOTHYROXINE NA 25 MCG TABLET (FP) PO SCH (07:00)
[2022-01-14] MEDS: ERTAPENEM SODIUM 1 GM in SODIUM CHLORIDE 50 ML IVPB SCH (10:22)
[2022-01-14 10:58] LABS: EPI CELLS 7 /uL (0-25.1); HYALINE CASTS 0 /uL (0-3.1); URINE APPEARANCE CLEAR; URINE BACTERIA 4 /uL (0-1359); URINE BILIRUBIN NEGATIVE (NEGATIVE); URINE COLOR YELLOW; URINE GLUCOSE (UA) NEGATIVE (NEGATIVE); URINE KETONE TRACE (NEGATIVE); URINE LEUK ESTERASE NEGATIVE (NEGATIVE); URINE NITRITE NEGATIVE (NEGATIVE); URINE PROTEIN NEGATIVE (NEGATIVE); URINE RBC 22 /uL (0-23.9); URINE UROBILINOGEN 0.2 mg/dL (0.2-1.0); URINE WBC 4 /uL (0-25.8)
[2022-01-14] MEDS: LIDOCAINE 5% TOPICAL PATCH TP SCH (16:55)
[2022-01-14] MEDS: ACETAMINOPHEN 325 MG TABLET (FP) PO PRN (21:44)
[2022-01-14] MEDS: LIDOCAINE PATCH REMOVAL MC SCH (21:45)
[2022-01-15] MEDS ORDERED: LEVOTHYROXINE NA 100 MCG TABLET (FP) PO SCH (07:00)
[2022-01-15] MEDS: HEPARIN NA (PORCINE) 5,000 UNITS/ML 1ML VIAL SQ SCH ×3 (07:01→21:25)
[2022-01-15 08:08] LABS: BASO % 1.1 % (0-2.0); EOS % 3.5 % (0-4.5); HEMOGLOBIN 11.3 GM/dL (10.7-15.3); LYMPH % 23.5 % (8-40); MCH 32.9 pg (25.7-33.7); MCHC 33.2 g/dl (32.0-36.0); MEAN PLT VOLUME 6.9 fl (7.5-11.1); MONO % 13.1 % (3.8-10.2); NEUT % 58.8 % (42.8-82.8); PLATELET COUNT 345 10^3/uL (134-434); RBC 3.43 M/mm3 (3.60-5.2); RDW 14.8 % (11.6-15.6); WHITE BLOOD COUNT 5.9 K/mm3 (4.0-10.0)
[2022-01-15 08:25] LABS: ALBUMIN 2.9 g/dl (3.4-5.0); BLOOD UREA NITROGEN 22.3 mg/dL (7-18); CALCIUM 8.5 mg/dL (8.5-10.1); MAGNESIUM 2.5 mg/dL (1.8-2.4)
[2022-01-15 08:29] LABS: CREATININE 0.7 mg/dL (0.55-1.3)
[2022-01-15 08:30] LABS: BILIRUBIN,TOTAL 0.5 mg/dL (0.2-1); TOT PROT 5.4 g/dl (6.4-8.2)
[2022-01-15] MEDS: LIDOCAINE 5% TOPICAL PATCH TP SCH (10:46)
[2022-01-15] MEDS: ERTAPENEM SODIUM 1 GM in SODIUM CHLORIDE 50 ML IVPB SCH (10:46)
[2022-01-15] MEDS ORDERED: BISACODYL 5 MG TABLET.DR (FP) PO ONE (15:39)
[2022-01-15] MEDS: POLYETHYLENE GLYCOL (HEALTHYLAX) 3350 17 GM PACKET PO SCH ×3 (16:50→21:30)
[2022-01-15] MEDS: ACETAMINOPHEN 325 MG TABLET (FP) PO PRN (18:10)
[2022-01-15] MEDS: LIDOCAINE PATCH REMOVAL MC SCH (21:26)
[2022-01-15] MEDS ORDERED: ACETAMINOPHEN 325 MG TABLET (FP) PO PRN (22:22)
[2022-01-16] MEDS: HEPARIN NA (PORCINE) 5,000 UNITS/ML 1ML VIAL SQ SCH ×2 (06:21→13:34)
[2022-01-16] MEDS ORDERED: LEVOTHYROXINE NA 88 MCG TABLET (FP) PO SCH (07:00)
[2022-01-16 08:25] LABS: BASO % 1.3 % (0-2.0); EOS % 4.4 % (0-4.5); HEMATOCRIT 32.3 % (32.4-45.2); HEMOGLOBIN 11.2 GM/dL (10.7-15.3); LYMPH % 18.2 % (8-40); MCH 33.8 pg (25.7-33.7); MCHC 34.6 g/dl (32.0-36.0); MEAN CELL VOLUME 97.6 fl (80-96); MEAN PLT VOLUME 6.7 fl (7.5-11.1); MONO % 12.9 % (3.8-10.2); NEUT % 63.2 % (42.8-82.8); PLATELET COUNT 344 10^3/uL (134-434); RBC 3.31 M/mm3 (3.60-5.2); RDW 14.8 % (11.6-15.6); WHITE BLOOD COUNT 5.4 K/mm3 (4.0-10.0)
[2022-01-16 08:52] LABS: CALCIUM 8.8 mg/dL (8.5-10.1)
[2022-01-16 08:53] LABS: BLOOD UREA NITROGEN 16.8 mg/dL (7-18); MAGNESIUM 2.5 mg/dL (1.8-2.4)
[2022-01-16 08:56] LABS: CREATININE 0.7 mg/dL (0.55-1.3)
[2022-01-16 08:57] LABS: TOT PROT 5.3 g/dl (6.4-8.2)
[2022-01-16 08:58] LABS: BILIRUBIN,TOTAL 0.5 mg/dL (0.2-1)
[2022-01-16] MEDS: FUROSEMIDE 20 MG TABLET (FP) PO SCH ×2 (09:45→09:51)
[2022-01-16] MEDS: POLYETHYLENE GLYCOL (HEALTHYLAX) 3350 17 GM PACKET PO SCH (09:45)
[2022-01-16] MEDS ORDERED: LISINOPRIL 10 MG TABLET PO SCH (10:00)
[2022-01-16] MEDS ORDERED: ASPIRIN 81 MG CHEWABLE TABLETS PO SCH (10:00)
[2022-01-16] MEDS ORDERED: LIDOCAINE 5% TOPICAL PATCH TP SCH (10:00)
[2022-01-16] MEDS ORDERED: ERTAPENEM SODIUM 1 GM in SODIUM CHLORIDE 50 ML IVPB SCH (10:00)
[2022-01-16] MEDS ORDERED: PANTOPRAZOLE 40 MG TABLET PO SCH (10:00)
[2022-01-16] MEDS ORDERED: LIDOCAINE PATCH REMOVAL MC SCH (22:00)
[2022-01-16 22:07] VITALS: BP 165/76; PULSE 66; RESP 17; TEMP 98.4
== END 2022-01-16 21:00 | DRG 312 ==
LOC: JER 20:31 → JERBED 01-13 01:00 → INTOOBSV 01-13 01:00 → J4W 01-14 04:01 → OBSVTOIN 01-14 13:05 → INTOOBSV 01-14 14:03 → OBSVTOIN 01-14 14:03 → J7W 01-15 13:28
PROVIDERS: ADMIT Internal Medicine; ATTEND Nurse Practitioner Acute Care
DX: R55 Syncope and collapse (principal); N39.0 Urinary tract infection, site not specified; I50.32 Chronic diastolic (congestive) heart failure; I11.0 Hypertensive heart disease with heart failure; I25.10 Atherosclerotic heart disease of native coronary artery without angina pectoris; Z95.5 Presence of coronary angioplasty implant and graft; E03.9 Hypothyroidism, unspecified
CPT/HCPCS: 36415; 70450-TC; 80053; 80061; 81003; 83036; 83735; 84100; 84443; 84484; 85025; 85610; 85730; 86850; 86900; 86901; 87086; 93005; 93010; 93306-TC; 97116-GP; 97162-GP; 99285-25; C9803-CS; G0378; J1644; U0003; U0005

== ENCOUNTER 2022-02-14 11:58 | Emergency (ER) | payer OTHER, MEDICARE ==
[2022-02-14 12:37] VITALS: BP 151/88; PULSE 74; RESP 18; TEMP 97.8; BMI 25.5
== END 2022-02-14 12:40 | disposition left against medical advice (07) ==
LOC: JER 11:58
DX: R20.2 Paresthesia of skin (principal)
CPT/HCPCS: 99281-25

== ENCOUNTER 2022-02-17 13:39 | Observation (INO) | payer OTHER, MEDICARE ==
[2022-02-17 14:39] VITALS: BMI 25.5
[2022-02-17] MEDS ORDERED: SODIUM CHLORIDE 0.9% 500 ML INFUS.BAG IV ONE (16:48)
[2022-02-17 17:41] LABS: BASO % 0.6 % (0-2.0); EOS % 0.5 % (0-4.5); HEMATOCRIT 41.5 % (32.4-45.2); HEMOGLOBIN 14.1 GM/dL (10.7-15.3); LYMPH % 6.1 % (8-40); MCH 33.4 pg (25.7-33.7); MCHC 33.9 g/dl (32.0-36.0); MEAN CELL VOLUME 98.5 fl (80-96); MEAN PLT VOLUME 7.9 fl (7.5-11.1); MONO % 8.8 % (3.8-10.2); PLATELET COUNT 338 10^3/uL (134-434); RBC 4.21 M/mm3 (3.60-5.2); RDW 13.9 % (11.6-15.6); WHITE BLOOD COUNT 9.9 K/mm3 (4.0-10.0)
[2022-02-17 18:02] LABS: CHLORIDE 105 mmol/L (98-107); SODIUM 137 mmol/L (136-145)
[2022-02-17 18:03] LABS: CALCIUM 9.7 mg/dL (8.5-10.1)
[2022-02-17 18:04] LABS: ALBUMIN 3.9 g/dl (3.4-5.0); BLOOD UREA NITROGEN 32.4 mg/dL (7-18); CO2 25 mmol/L (21-32); GLUCOSE,RANDOM 91 mg/dL (74-106); MAGNESIUM 2.5 mg/dL (1.8-2.4)
[2022-02-17 18:07] LABS: CREATININE 1.1 mg/dL (0.55-1.3); SGOT/AST 80 U/L (15-37); SGPT/ALT 27 U/L (13-61)
[2022-02-17 18:09] LABS: BILIRUBIN,TOTAL 0.8 mg/dL (0.2-1); TOT PROT 7.1 g/dl (6.4-8.2)
[2022-02-17 18:10] LABS: ALK PHOS 63 U/L (45-117)
[2022-02-17] MEDS ORDERED: ACETAMINOPHEN 325 MG TABLET (FP) PO PRN (18:26)
[2022-02-17 18:35] LABS: ANION GAP 8 MMOL/L (8-16)
[2022-02-17 20:41] LABS: EPI CELLS 35 /uL (0-25.1); HYALINE CASTS 1 /uL (0-3.1); PH,URINE 5.5 (5.0-8.0); URINE APPEARANCE CLEAR; URINE BACTERIA 104 /uL (0-1359); URINE BILIRUBIN NEGATIVE (NEGATIVE); URINE COLOR YELLOW; URINE GLUCOSE (UA) NEGATIVE (NEGATIVE); URINE KETONE TRACE (NEGATIVE); URINE LEUK ESTERASE TRACE (NEGATIVE); URINE NITRITE NEGATIVE (NEGATIVE); URINE PROTEIN NEGATIVE (NEGATIVE); URINE RBC 18 /uL (0-23.9); URINE UROBILINOGEN 0.2 mg/dL (0.2-1.0); URINE WBC 35 /uL (0-25.8)
[2022-02-17] MEDS ORDERED: ACETAMINOPHEN 325 MG TABLET (FP) ONE (21:51)
[2022-02-17] MEDS ORDERED: NITROFURANTOIN MACROCRYSTAL 50 MG CAPSULE (FP) PO SCH (22:00)
[2022-02-17] MEDS ORDERED: ATORVASTATIN CA 40 MG TABLET (FP) PO SCH (22:00)
[2022-02-17] MEDS ORDERED: ATORVASTATIN CA 40 MG TABLET (FP) ONE (22:33)
[2022-02-18] MEDS ORDERED: NITROFURANTOIN MACROCRYSTAL 50 MG CAPSULE (FP) PO SCH
[2022-02-18] MEDS ORDERED: LEVOTHYROXINE NA 100 MCG TABLET (FP) PO SCH (07:00)
[2022-02-18 07:13] LABS: BASO % 0.7 % (0-2.0); EOS % 0.9 % (0-4.5); HEMATOCRIT 36.2 % (32.4-45.2); HEMOGLOBIN 12.3 GM/dL (10.7-15.3); LYMPH % 9.6 % (8-40); MCH 33.2 pg (25.7-33.7); MEAN CELL VOLUME 97.9 fl (80-96); MONO % 8.9 % (3.8-10.2); NEUT % 79.9 % (42.8-82.8); PLATELET COUNT 282 10^3/uL (134-434); RDW 13.5 % (11.6-15.6); WHITE BLOOD COUNT 6.6 K/mm3 (4.0-10.0)
[2022-02-18 07:25] LABS: CALCIUM 8.6 mg/dL (8.5-10.1)
[2022-02-18 07:26] LABS: ALBUMIN 3.2 g/dl (3.4-5.0); BLOOD UREA NITROGEN 27.2 mg/dL (7-18); MAGNESIUM 2.2 mg/dL (1.8-2.4)
[2022-02-18 07:28] LABS: CREATININE 0.7 mg/dL (0.55-1.3)
[2022-02-18 07:29] LABS: PHOSPHOROUS 2.5 mg/dL (2.5-4.9)
[2022-02-18 07:30] LABS: BILIRUBIN,TOTAL 0.7 mg/dL (0.2-1); TOT PROT 5.6 g/dl (6.4-8.2)
[2022-02-18] MEDS ORDERED: ENOXAPARIN NA (PORCINE) 40 MG/0.4 ML DISP.SYRIN SQ SCH (10:00)
[2022-02-18] MEDS ORDERED: FLUDROCORTISONE ACETATE 0.1 MG TABLET (FP) PO SCH (10:00)
[2022-02-18] MEDS ORDERED: ASPIRIN 81 MG CHEWABLE TABLETS PO SCH (10:00)
[2022-02-18] MEDS ORDERED: PANTOPRAZOLE 40 MG TABLET PO SCH (10:00)
[2022-02-18 10:01] VITALS: BP 167/88; PULSE 68; RESP 20; TEMP 98.1
[2022-02-18] MEDS ORDERED: LISINOPRIL 5 MG TABLET PO ONE (10:40)
[2022-02-18] MEDS ORDERED: ASPIRIN 81 MG CHEWABLE TABLETS ONE (12:49)
[2022-02-18] MEDS ORDERED: ENOXAPARIN NA (PORCINE) 40 MG/0.4 ML DISP.SYRIN SQ ONE (12:49)
[2022-02-18] MEDS ORDERED: LISINOPRIL 5 MG TABLET ONE (12:49)
[2022-02-18] MEDS ORDERED: LEVOTHYROXINE NA 50 MCG TABLET (FP) ONE (12:49)
[2022-02-18] MEDS ORDERED: PANTOPRAZOLE 40 MG TABLET PO ONE (12:49)
[2022-02-18] MEDS ORDERED: NITROFURANTOIN MACROCRYSTAL 50 MG CAPSULE (FP) ONE (12:50)
[2022-02-19] MEDS ORDERED: LISINOPRIL 5 MG TABLET PO SCH (10:00)
== END 2022-02-18 15:00 | disposition home or self-care (01) ==
LOC: JER 13:39 → JERBED 16:51 → UNDOADMOB 16:51 → INTOOBSV 16:51 → JERBED 18:26
PROVIDERS: ADMIT Internal Medicine; ATTEND Nurse Practitioner Family
PROC: 3E013GC Introduction of Other Therapeutic Substance into Subcutaneous Tissue, Percutaneous Approach (ICD-10-PCS; principal; 2022-02-17)
PROC: 3E0337Z Introduction of Electrolytic and Water Balance Substance into Peripheral Vein, Percutaneous Approach (ICD-10-PCS; 2022-02-17)
DX: I95.1 Orthostatic hypotension (principal); I11.0 Hypertensive heart disease with heart failure; I25.10 Atherosclerotic heart disease of native coronary artery without angina pectoris; I50.31 Acute diastolic (congestive) heart failure; K21.9 Gastro-esophageal reflux disease without esophagitis; E03.9 Hypothyroidism, unspecified; E78.5 Hyperlipidemia, unspecified; M19.90 Unspecified osteoarthritis, unspecified site; Z86.16 Personal history of COVID-19; Z98.61 Coronary angioplasty status; Z88.0 Allergy status to penicillin
CPT/HCPCS: 0241U-QW; 36415; 70450-TC; 71046-TC-FY; 80053; 81003; 83735; 84100; 84443; 84484; 85025; 86850; 86900; 86901; 87086; 93005; 93010; 96372; 99285-25; G0378

== ENCOUNTER 2022-05-19 20:28 | Inpatient (IN) | payer OTHER, MEDICARE ==
[2022-05-19 22:11] LABS: CHLORIDE 106 mmol/L (98-107); SODIUM 133 mmol/L (136-145)
[2022-05-19 22:13] LABS: CO2 27 mmol/L (21-32); GLUCOSE,RANDOM 92 mg/dL (74-106)
[2022-05-19 22:14] LABS: ALBUMIN 3.1 g/dl (3.4-5.0); BLOOD UREA NITROGEN 45.2 mg/dL (7-18); MAGNESIUM 2.3 mg/dL (1.8-2.4)
[2022-05-19 22:15] LABS: BASO % 0.6 % (0-2.0); EOS % 0.5 % (0-4.5); HEMATOCRIT 37.5 % (32.4-45.2); HEMOGLOBIN 12.5 GM/dL (10.7-15.3); LYMPH % 8.6 % (8-40); MCH 32.3 pg (25.7-33.7); MCHC 33.4 g/dl (32.0-36.0); MEAN CELL VOLUME 96.8 fl (80-96); MEAN PLT VOLUME 8.6 fl (7.5-11.1); MONO % 10.1 % (3.8-10.2); NEUT % 80.2 % (42.8-82.8); PLATELET COUNT 267 10^3/uL (134-434); RBC 3.87 M/mm3 (3.60-5.2); RDW 13.3 % (11.6-15.6); WHITE BLOOD COUNT 9.8 K/mm3 (4.0-10.0)
[2022-05-19 22:16] LABS: INR 0.95 (0.83-1.09)
[2022-05-19 22:17] LABS: CREATININE 0.9 mg/dL (0.55-1.3); SGOT/AST 93 U/L (15-37)
[2022-05-19 22:18] LABS: BILIRUBIN,TOTAL 0.6 mg/dL (0.2-1); TOT PROT 6.2 g/dl (6.4-8.2)
[2022-05-19 22:19] LABS: ACTIVATED PTT 24.7 SECONDS (25.2-36.5); ALK PHOS 48 U/L (45-117)
[2022-05-19 22:34] LABS: ANION GAP 1 MMOL/L (8-16); SGPT/ALT 27 U/L (13-61)
[2022-05-19 22:55] LABS: EPI CELLS 13 /uL (0-25.1); HYALINE CASTS 0 /uL (0-3.1); URINE APPEARANCE CLEAR; URINE BACTERIA 7896 /uL (0-1359); URINE BILIRUBIN NEGATIVE (NEGATIVE); URINE COLOR YELLOW; URINE GLUCOSE (UA) NEGATIVE (NEGATIVE); URINE KETONE TRACE (NEGATIVE); URINE LEUK ESTERASE 1+ (NEGATIVE); URINE NITRITE POSITIVE (NEGATIVE); URINE PROTEIN NEGATIVE (NEGATIVE); URINE RBC 13 /uL (0-23.9); URINE UROBILINOGEN 0.2 mg/dL (0.2-1.0); URINE WBC 223 /uL (0-25.8)
[2022-05-19] MEDS ORDERED: MEROPENEM 500 MG in DEXTROSE 5%-WATER 100 ML IVPB ONE (23:10)
[2022-05-19] MEDS ORDERED: SODIUM CHLORIDE 0.9% 500 ML INFUS.BAG IV ONE (23:18)
[2022-05-19 23:20] LABS: CALCIUM 9.4 mg/dL (8.5-10.1)
[2022-05-19 23:21] LABS: ALBUMIN 3.3 g/dl (3.4-5.0)
[2022-05-19 23:24] LABS: CREATININE 0.9 mg/dL (0.55-1.3)
[2022-05-19 23:26] LABS: BILIRUBIN,TOTAL 0.8 mg/dL (0.2-1); TOT PROT 5.7 g/dl (6.4-8.2)
[2022-05-19] MEDS ORDERED: MEROPENEM 500 MG VIAL (RESTRICTED TO ID) IVPB ONE (23:35)
[2022-05-19] MEDS ORDERED: SODIUM CHLORIDE 0.9% 1000 ML INFUS.BAG IV ONE (23:45)
[2022-05-20] MEDS ORDERED: ACETAMINOPHEN 325 MG TABLET (FP) PO ONE ×2 (06:29→19:00)
[2022-05-20 07:31] LABS: HEMOGLOBIN 12.4 GM/dL (10.7-15.3); MCH 32.9 pg (25.7-33.7); MCHC 34.4 g/dl (32.0-36.0); MEAN CELL VOLUME 95.6 fl (80-96); MEAN PLT VOLUME 7.6 fl (7.5-11.1); PLATELET COUNT 236 10^3/uL (134-434); RBC 3.77 M/mm3 (3.60-5.2); RDW 13.2 % (11.6-15.6); WHITE BLOOD COUNT 8.7 K/mm3 (4.0-10.0)
[2022-05-20 07:52] LABS: CALCIUM 8.8 mg/dL (8.5-10.1)
[2022-05-20 07:53] LABS: ALBUMIN 3.2 g/dl (3.4-5.0); MAGNESIUM 2.3 mg/dL (1.8-2.4)
[2022-05-20 07:56] LABS: CREATININE 0.8 mg/dL (0.55-1.3); PHOSPHOROUS 2.5 mg/dL (2.5-4.9)
[2022-05-20 07:57] LABS: TOT PROT 5.6 g/dl (6.4-8.2)
[2022-05-20] MEDS ORDERED: LISINOPRIL 5 MG TABLET PO ONE (09:28)
[2022-05-20] MEDS ORDERED: PANTOPRAZOLE 40 MG TABLET PO ONE (09:32)
[2022-05-20] MEDS ORDERED: SERTRALINE HCL 50 MG TABLET (FP) ONE (09:32)
[2022-05-20] MEDS ORDERED: LISINOPRIL 10 MG TABLET ONE (09:32)
[2022-05-20] MEDS ORDERED: LEVOTHYROXINE NA 88 MCG TABLET (FP) ONE (09:32)
[2022-05-20] MEDS: PANTOPRAZOLE 40 MG TABLET PO SCH (09:44)
[2022-05-20] MEDS: ENOXAPARIN NA (PORCINE) 40 MG/0.4 ML DISP.SYRIN SQ SCH (09:44)
[2022-05-20] MEDS: LEVOTHYROXINE NA 88 MCG TABLET (FP) PO SCH (09:44)
[2022-05-20] MEDS ORDERED: LISINOPRIL 5 MG TABLET PO SCH ×2 (10:00)
[2022-05-20] MEDS ORDERED: ESCITALOPRAM OXALATE 10 MG TABLET PO SCH (10:00)
[2022-05-20] MEDS ORDERED: SERTRALINE HCL 25 MG TABLET (FP) PO SCH (10:00)
[2022-05-20] MEDS ORDERED: FLUDROCORTISONE ACETATE 0.1 MG TABLET (FP) PO SCH (10:00)
[2022-05-20] MEDS: NEBIVOLOL 2.5 MG TABLET (FP) PO SCH (10:50)
[2022-05-20] MEDS: SERTRALINE HCL 25 MG TABLET (FP) PO SCH (10:50)
[2022-05-20] MEDS ORDERED: ATENOLOL 50 MG TABLET (FP) PO SCH (12:00)
[2022-05-20 13:14] VITALS: BMI 24.0
[2022-05-20] MEDS ORDERED: AZTREONAM 1 GM in DEXTROSE 5%-WATER - 50 ML IVPB SCH (14:45)
[2022-05-20] MEDS: MEROPENEM 1 GM in DEXTROSE 5%-WATER 100 ML IVPB SCH (17:32)
[2022-05-20] MEDS: ATORVASTATIN CA 40 MG TABLET (FP) PO SCH (22:40)
[2022-05-21] MEDS: MEROPENEM 1 GM in DEXTROSE 5%-WATER 100 ML IVPB SCH ×2 (01:42→09:29)
[2022-05-21] MEDS: LEVOTHYROXINE NA 88 MCG TABLET (FP) PO SCH (06:40)
[2022-05-21] MEDS: ENOXAPARIN NA (PORCINE) 40 MG/0.4 ML DISP.SYRIN SQ SCH (09:29)
[2022-05-21] MEDS: SERTRALINE HCL 25 MG TABLET (FP) PO SCH (09:30)
[2022-05-21] MEDS: PANTOPRAZOLE 40 MG TABLET PO SCH (09:30)
[2022-05-21] MEDS: ASPIRIN PO SCH (11:17)
[2022-05-21] MEDS: ASPIRIN COATED 81 MG TABLET.EC PO SCH (11:38)
[2022-05-21] MEDS: NEBIVOLOL 2.5 MG TABLET (FP) PO SCH (11:39)
[2022-05-21] MEDS: ERTAPENEM SODIUM 1 GM in SODIUM CHLORIDE 50 ML IVPB SCH (16:38)
[2022-05-21] MEDS: ACETAMINOPHEN 325 MG TABLET (FP) PO PRN (20:14)
[2022-05-21] MEDS: ATORVASTATIN CA 40 MG TABLET (FP) PO SCH (22:40)
[2022-05-22] MEDS: LEVOTHYROXINE NA 88 MCG TABLET (FP) PO SCH (06:59)
[2022-05-22 08:46] LABS: HEMOGLOBIN 12.3 GM/dL (10.7-15.3); MCH 33.1 pg (25.7-33.7); MCHC 35.1 g/dl (32.0-36.0); MEAN CELL VOLUME 94.2 fl (80-96); MEAN PLT VOLUME 8.1 fl (7.5-11.1); PLATELET COUNT 226 10^3/uL (134-434); RBC 3.71 M/mm3 (3.60-5.2); RDW 13.1 % (11.6-15.6); WHITE BLOOD COUNT 6.8 K/mm3 (4.0-10.0)
[2022-05-22 09:03] LABS: CALCIUM 8.9 mg/dL (8.5-10.1)
[2022-05-22 09:04] LABS: BLOOD UREA NITROGEN 26.5 mg/dL (7-18)
[2022-05-22 09:07] LABS: CREATININE 0.7 mg/dL (0.55-1.3)
[2022-05-22 09:08] LABS: BILIRUBIN,TOTAL 0.9 mg/dL (0.2-1)
[2022-05-22 09:09] LABS: TOT PROT 5.3 g/dl (6.4-8.2)
[2022-05-22] MEDS: ERTAPENEM SODIUM 1 GM in SODIUM CHLORIDE 50 ML IVPB SCH (10:30)
[2022-05-22] MEDS: NEBIVOLOL 2.5 MG TABLET (FP) PO SCH (10:30)
[2022-05-22] MEDS: ASPIRIN COATED 81 MG TABLET.EC PO SCH (10:30)
[2022-05-22] MEDS: SERTRALINE HCL 25 MG TABLET (FP) PO SCH (10:30)
[2022-05-22] MEDS: PANTOPRAZOLE 40 MG TABLET PO SCH (10:30)
[2022-05-22] MEDS: ENOXAPARIN NA (PORCINE) 40 MG/0.4 ML DISP.SYRIN SQ SCH (10:30)
[2022-05-22] MEDS: POLYETHYLENE GLYCOL (HEALTHYLAX) 3350 17 GM PACKET PO SCH (15:46)
[2022-05-22] MEDS: ACETAMINOPHEN 325 MG TABLET (FP) PO PRN (19:10)
[2022-05-22] MEDS: ATORVASTATIN CA 40 MG TABLET (FP) PO SCH (21:59)
[2022-05-22] MEDS: CEFUROXIME AXETIL 250 MG TABLET PO SCH (21:59)
[2022-05-23 02:17] VITALS: RESP 18
[2022-05-23] MEDS: LEVOTHYROXINE NA 88 MCG TABLET (FP) PO SCH (06:19)
[2022-05-23] MEDS ORDERED: LACTOBACILLUS ACIDOPHILUS 1 TABLET PO SCH (10:00)
[2022-05-23] MEDS: ASPIRIN COATED 81 MG TABLET.EC PO SCH (10:21)
[2022-05-23] MEDS: ENOXAPARIN NA (PORCINE) 40 MG/0.4 ML DISP.SYRIN SQ SCH (10:21)
[2022-05-23] MEDS: POLYETHYLENE GLYCOL (HEALTHYLAX) 3350 17 GM PACKET PO SCH (10:21)
[2022-05-23] MEDS: NEBIVOLOL 2.5 MG TABLET (FP) PO SCH (10:22)
[2022-05-23] MEDS: SERTRALINE HCL 25 MG TABLET (FP) PO SCH (10:22)
[2022-05-23] MEDS: CEFUROXIME AXETIL 250 MG TABLET PO SCH (10:22)
[2022-05-23] MEDS: PANTOPRAZOLE 40 MG TABLET PO SCH (10:22)
[2022-05-23 10:28] VITALS: BP 178/77; PULSE 69; TEMP 98.1
== END 2022-05-23 13:50 | disposition home or self-care (01) | DRG 689 ==
LOC: JER 20:28 → JERBED 22:18 → OBSVTOIN 05-20 03:51 → J7W 05-20 11:00
PROVIDERS: ADMIT Internal Medicine; ATTEND Internal Medicine
DX: N39.0 Urinary tract infection, site not specified (principal); G93.41 Metabolic encephalopathy; I50.32 Chronic diastolic (congestive) heart failure; I11.0 Hypertensive heart disease with heart failure; E03.9 Hypothyroidism, unspecified; I25.10 Atherosclerotic heart disease of native coronary artery without angina pectoris; R31.9 Hematuria, unspecified; K21.9 Gastro-esophageal reflux disease without esophagitis; F41.8 Other specified anxiety disorders; Z95.5 Presence of coronary angioplasty implant and graft
CPT/HCPCS: 36415; 70450-TC; 71045-TC-FY; 80053; 81003; 82533; 83735; 84100; 84439; 84443; 84484; 85025; 85027; 85610; 85730; 87086; 87186; 93005; 93010; 97116-GP; 97161-GP; 99285-25; C9803-CS; G0378; U0003; U0005

== ENCOUNTER 2022-10-15 12:26 | Inpatient (IN) | payer OTHER, MEDICARE ==
[2022-10-15 13:21] VITALS: BMI 24.0
[2022-10-15] MEDS ORDERED: SODIUM CHLORIDE 0.9% 500 ML INFUS.BAG IV ONE (13:33)
[2022-10-15 14:28] LABS: BASO % 0.7 % (0-2.0); EOS % 0.4 % (0-4.5); HEMATOCRIT 40.6 % (32.4-45.2); HEMOGLOBIN 13.1 GM/dL (10.7-15.3); LYMPH % 7.9 % (8-40); MCH 30.5 pg (25.7-33.7); MCHC 32.3 g/dl (32.0-36.0); MEAN CELL VOLUME 94.2 fl (80-96); MEAN PLT VOLUME 8.6 fl (7.5-11.1); MONO % 8.2 % (3.8-10.2); NEUT % 82.8 % (42.8-82.8); PLATELET COUNT 256 10^3/uL (134-434); RBC 4.31 M/mm3 (3.60-5.2); RDW 13.6 % (11.6-15.6); WHITE BLOOD COUNT 11.2 K/mm3 (4.0-10.0)
[2022-10-15 14:57] LABS: POTASSIUM 4.5 mmol/L (3.5-5.1)
[2022-10-15 14:59] LABS: BLOOD UREA NITROGEN 33.9 mg/dL (7-18); CALCIUM 9.9 mg/dL (8.5-10.1)
[2022-10-15 15:00] LABS: ALBUMIN 3.7 g/dl (3.4-5.0)
[2022-10-15 15:02] LABS: CREATININE 1.2 mg/dL (0.55-1.3)
[2022-10-15 15:04] LABS: BILIRUBIN,TOTAL 1.1 mg/dL (0.2-1); TOT PROT 6.5 g/dl (6.4-8.2)
[2022-10-15 15:07] LABS: N-TERMINAL BNP 2221.3 pg/ml (5-450)
[2022-10-15 17:32] LABS: EPI CELLS 3 /uL (0-25.1); HYALINE CASTS 1 /uL (0-3.1); PH,URINE 5.5 (5.0-8.0); URINE APPEARANCE CLEAR; URINE BACTERIA 3781 /uL (0-1359); URINE BILIRUBIN NEGATIVE (NEGATIVE); URINE COLOR YELLOW; URINE GLUCOSE (UA) NEGATIVE (NEGATIVE); URINE KETONE NEGATIVE (NEGATIVE); URINE LEUK ESTERASE 2+ (NEGATIVE); URINE NITRITE NEGATIVE (NEGATIVE); URINE PROTEIN NEGATIVE (NEGATIVE); URINE RBC 10 /uL (0-23.9); URINE UROBILINOGEN 0.2 mg/dL (0.2-1.0); URINE WBC 182 /uL (0-25.8)
[2022-10-15 18:19] LABS: INR 1.04 (0.83-1.09); PROTHROMBIN TIME (PATIENT) 12.1 SEC (9.7-13.0)
[2022-10-15 18:22] LABS: ACTIVATED PTT 25.7 SECONDS (25.2-36.5)
[2022-10-15] MEDS ORDERED: CEFTRIAXONE 1,000 MG in DEXTROSE 5%-WATER - 50 ML IVPB ONE (19:05)
[2022-10-15] MEDS ORDERED: CEFTRIAXONE 1 GM/50 ML BAG ONE (19:45)
[2022-10-15] MEDS ORDERED: ACETAMINOPHEN 325 MG TABLET (FP) ONE (20:18)
[2022-10-15] MEDS: ACETAMINOPHEN 325 MG TABLET (FP) PO PRN (20:22)
[2022-10-15] MEDS ORDERED: hydrALAZINE HCL 20 MG/ML VIAL IVPUSH ONE (21:30)
[2022-10-15] MEDS ORDERED: ATORVASTATIN CA 20 MG TABLET (FP) ONE (21:44)
[2022-10-15] MEDS ORDERED: hydrALAZINE HCL 20 MG/ML VIAL ONE (21:44)
[2022-10-15] MEDS: ATORVASTATIN CA 20 MG TABLET (FP) PO SCH (21:50)
[2022-10-16] MEDS: MELATONIN 5 MG TABLETS PO PRN (00:15)
[2022-10-16] MEDS: LEVOTHYROXINE NA 88 MCG TABLET (FP) PO SCH (07:12)
[2022-10-16 08:18] LABS: BASO % 0.7 % (0-2.0); EOS % 1.6 % (0-4.5); HEMATOCRIT 39.7 % (32.4-45.2); HEMOGLOBIN 12.8 GM/dL (10.7-15.3); LYMPH % 14.5 % (8-40); MCH 30.7 pg (25.7-33.7); MCHC 32.3 g/dl (32.0-36.0); MEAN PLT VOLUME 8.4 fl (7.5-11.1); MONO % 9.2 % (3.8-10.2); PLATELET COUNT 231 10^3/uL (134-434); RBC 4.18 M/mm3 (3.60-5.2); RDW 13.7 % (11.6-15.6); WHITE BLOOD COUNT 7.7 K/mm3 (4.0-10.0)
[2022-10-16 08:22] LABS: POTASSIUM 4.3 mmol/L (3.5-5.1)
[2022-10-16 08:23] LABS: CALCIUM 9.8 mg/dL (8.5-10.1)
[2022-10-16 08:24] LABS: BLOOD UREA NITROGEN 31.8 mg/dL (7-18)
[2022-10-16 08:27] LABS: CREATININE 0.8 mg/dL (0.55-1.3)
[2022-10-16] MEDS: ASPIRIN COATED 81 MG TABLET.EC PO SCH (10:30)
[2022-10-16] MEDS: PANTOPRAZOLE 40 MG TABLET PO SCH (10:30)
[2022-10-16] MEDS: SERTRALINE HCL 25 MG TABLET (FP) PO SCH (10:30)
[2022-10-16] MEDS: ATENOLOL 25 MG TABLET (FP) PO SCH (10:30)
[2022-10-16] MEDS ORDERED: hydrALAZINE HCL 20 MG/ML VIAL IVPUSH PRN (11:10)
[2022-10-16] MEDS ORDERED: CEFTRIAXONE 1 GM in DEXTROSE 5%-WATER - 50 ML IVPB ONE ×2 (11:30→14:30)
[2022-10-16] MEDS: FAMOTIDINE 20 MG TABLET PO SCH (11:43)
[2022-10-16] MEDS: ACETAMINOPHEN 325 MG TABLET (FP) PO PRN (11:55)
[2022-10-16] MEDS: TOLTERODINE TARTRATE LA 4 MG CAP.SR.24H (FP) PO SCH (15:00)
[2022-10-16] MEDS: ATORVASTATIN CA 20 MG TABLET (FP) PO SCH (21:44)
[2022-10-16] MEDS: traMADol HCL 50 MG TABLET PO PRN (21:46)
[2022-10-17] MEDS: LEVOTHYROXINE NA 88 MCG TABLET (FP) PO SCH (06:14)
[2022-10-17] MEDS: CEFTRIAXONE 1 GM in DEXTROSE 5%-WATER - 50 ML IVPB SCH (10:27)
[2022-10-17] MEDS: ACETAMINOPHEN 325 MG TABLET (FP) PO PRN (10:28)
[2022-10-17] MEDS: TOLTERODINE TARTRATE LA 4 MG CAP.SR.24H (FP) PO SCH (10:28)
[2022-10-17] MEDS: ATENOLOL 25 MG TABLET (FP) PO SCH (10:29)
[2022-10-17] MEDS: SERTRALINE HCL 25 MG TABLET (FP) PO SCH (10:29)
[2022-10-17] MEDS: FAMOTIDINE 20 MG TABLET PO SCH (10:29)
[2022-10-17] MEDS: ASPIRIN COATED 81 MG TABLET.EC PO SCH (10:31)
[2022-10-17] MEDS: PANTOPRAZOLE 40 MG TABLET PO SCH (10:31)
[2022-10-17 13:01] LABS: CALCIUM 9.9 mg/dL (8.5-10.1); POTASSIUM 4.3 mmol/L (3.5-5.1)
[2022-10-17 13:02] LABS: BLOOD UREA NITROGEN 32.9 mg/dL (7-18)
[2022-10-17 13:05] LABS: CREATININE 0.9 mg/dL (0.55-1.3)
[2022-10-17] MEDS: traMADol HCL 50 MG TABLET PO PRN (22:04)
[2022-10-17] MEDS: MELATONIN 5 MG TABLETS PO PRN (22:04)
[2022-10-17] MEDS: ATORVASTATIN CA 20 MG TABLET (FP) PO SCH (22:09)
[2022-10-18 05:17] VITALS: TEMP 97.6
[2022-10-18] MEDS: LEVOTHYROXINE NA 88 MCG TABLET (FP) PO SCH (06:36)
[2022-10-18 06:46] LABS: HEMATOCRIT 37.1 % (32.4-45.2); HEMOGLOBIN 12.2 GM/dL (10.7-15.3); MCH 30.8 pg (25.7-33.7); MCHC 32.8 g/dl (32.0-36.0); MEAN CELL VOLUME 93.8 fl (80-96); MEAN PLT VOLUME 8.2 fl (7.5-11.1); PLATELET COUNT 221 10^3/uL (134-434); RBC 3.95 M/mm3 (3.60-5.2); RDW 13.6 % (11.6-15.6); WHITE BLOOD COUNT 7.6 K/mm3 (4.0-10.0)
[2022-10-18 07:12] LABS: POTASSIUM 4.3 mmol/L (3.5-5.1)
[2022-10-18 07:17] LABS: BLOOD UREA NITROGEN 30.9 mg/dL (7-18)
[2022-10-18 07:18] LABS: ALBUMIN 3.1 g/dl (3.4-5.0); CALCIUM 9.7 mg/dL (8.5-10.1); MAGNESIUM 2.2 mg/dL (1.8-2.4)
[2022-10-18 07:21] LABS: CREATININE 0.9 mg/dL (0.55-1.3); PHOSPHOROUS 3.2 mg/dL (2.5-4.9)
[2022-10-18 07:22] LABS: BILIRUBIN,TOTAL 0.5 mg/dL (0.2-1); TOT PROT 5.8 g/dl (6.4-8.2)
[2022-10-18 09:57] VITALS: BP 143/73; PULSE 58; RESP 17
[2022-10-18] MEDS: CEFTRIAXONE 1 GM in DEXTROSE 5%-WATER - 50 ML IVPB SCH (09:57)
[2022-10-18] MEDS: ASPIRIN COATED 81 MG TABLET.EC PO SCH (09:57)
[2022-10-18] MEDS: SERTRALINE HCL 25 MG TABLET (FP) PO SCH (09:57)
[2022-10-18] MEDS: FAMOTIDINE 20 MG TABLET PO SCH (09:58)
[2022-10-18] MEDS: TOLTERODINE TARTRATE LA 4 MG CAP.SR.24H (FP) PO SCH (09:58)
[2022-10-18] MEDS: PANTOPRAZOLE 40 MG TABLET PO SCH (09:58)
[2022-10-18] MEDS: ATENOLOL 25 MG TABLET (FP) PO SCH (09:59)
[2022-10-18] MEDS ORDERED: ENOXAPARIN NA (PORCINE) 40 MG/0.4 ML DISP.SYRIN SQ SCH (10:00)
== END 2022-10-18 15:33 | disposition home or self-care (01) | DRG 690 ==
LOC: JER 12:26 → JERBED 17:45 → J4W 22:54 → OBSVTOIN 10-17 09:01
PROVIDERS: ADMIT Internal Medicine; ATTEND Internal Medicine
DX: N39.0 Urinary tract infection, site not specified (principal); I50.32 Chronic diastolic (congestive) heart failure; I95.1 Orthostatic hypotension; I11.0 Hypertensive heart disease with heart failure; E03.9 Hypothyroidism, unspecified; E78.5 Hyperlipidemia, unspecified; E78.00 Pure hypercholesterolemia, unspecified; I25.10 Atherosclerotic heart disease of native coronary artery without angina pectoris; R07.89 Other chest pain; D72.829 Elevated white blood cell count, unspecified; M47.9 Spondylosis, unspecified; Z95.5 Presence of coronary angioplasty implant and graft
CPT/HCPCS: 0241U-QW; 36415; 70450-TC; 71045-TC-FY; 80048; 80053; 81003; 83735; 83880; 84100; 84484; 85025; 85027; 85610; 85730; 87086; 87186; 93005; 93010; 97116-GP; 97161-GP; 99285-25; G0378

== ENCOUNTER 2022-11-23 12:59 | Emergency (ER) | payer OTHER, MEDICARE ==
[2022-11-23 13:30] VITALS: BP 150/78; PULSE 66; RESP 18; TEMP 98.7; BMI 24.2
[2022-11-23] MEDS ORDERED: ACETAMINOPHEN 500 MG TABLET (FP) PO ONE (13:50)
[2022-11-23] MEDS ORDERED: ACETAMINOPHEN 500 MG TABLET (FP) ONE (14:33)
== END 2022-11-23 15:58 | disposition home or self-care (01) ==
LOC: FER 12:59
DX: M25.512 Pain in left shoulder (principal); M79.602 Pain in left arm; M25.562 Pain in left knee; S09.90XA Unspecified injury of head, initial encounter; W01.198A Fall on same level from slipping, tripping and stumbling with subsequent striking against other object, initial encounter
CPT/HCPCS: 70450-TC; 72125-TC; 73030-TC-LT-FY; 73060-TC-LT-FY; 73070-TC-LT-FY; 73560-TC-LT-FY; 99284-25

== ENCOUNTER 2022-12-07 14:45 | Inpatient (IN) | payer OTHER, MEDICARE ==
[2022-12-07 15:01] VITALS: BMI 24.2
[2022-12-07 15:49] LABS: BASO % 0.8 % (0-2.0); EOS % 0.9 % (0-4.5); HEMATOCRIT 35.7 % (32.4-45.2); HEMOGLOBIN 12.2 GM/dL (10.7-15.3); LYMPH % 14.6 % (8-40); MEAN CELL VOLUME 91.1 fl (80-96); MEAN PLT VOLUME 7.2 fl (7.5-11.1); MONO % 9.4 % (3.8-10.2); NEUT % 74.3 % (42.8-82.8); PLATELET COUNT 233 10^3/uL (134-434); RBC 3.92 M/mm3 (3.60-5.2); WHITE BLOOD COUNT 6.3 K/mm3 (4.0-10.0)
[2022-12-07 15:57] LABS: INR 0.98 (0.83-1.09); PROTHROMBIN TIME (PATIENT) 11.4 SEC (9.7-13.0)
[2022-12-07 16:12] LABS: POTASSIUM 4.4 mmol/L (3.5-5.1)
[2022-12-07 16:14] LABS: CALCIUM 8.9 mg/dL (8.5-10.1)
[2022-12-07 16:15] LABS: ALBUMIN 3.4 g/dl (3.4-5.0); BLOOD UREA NITROGEN 29.6 mg/dL (7-18)
[2022-12-07 16:18] LABS: CREATININE 1.1 mg/dL (0.55-1.3)
[2022-12-07 16:19] LABS: TOT PROT 5.9 g/dl (6.4-8.2)
[2022-12-07 16:35] LABS: ACTIVATED PTT 28.2 SECONDS (25.2-36.5)
[2022-12-07 17:43] LABS: EPI CELLS 17 /uL (0-25.1); HYALINE CASTS 1 /uL (0-3.1); URINE APPEARANCE CLOUDY; URINE BACTERIA >9,000 /uL (0-1359); URINE BILIRUBIN NEGATIVE (NEGATIVE); URINE COLOR YELLOW; URINE GLUCOSE (UA) NEGATIVE (NEGATIVE); URINE KETONE NEGATIVE (NEGATIVE); URINE LEUK ESTERASE TRACE (NEGATIVE); URINE NITRITE POSITIVE (NEGATIVE); URINE PROTEIN NEGATIVE (NEGATIVE); URINE RBC 9 /uL (0-23.9); URINE UROBILINOGEN 0.2 mg/dL (0.2-1.0); URINE WBC 78 /uL (0-25.8)
[2022-12-07] MEDS ORDERED: MEROPENEM 1 GM in DEXTROSE 5%-WATER 100 ML IVPB ONE (17:48)
[2022-12-07] MEDS ORDERED: MEROPENEM 1 GM VIAL (RESTRICTED TO ID) IVPB ONE (18:26)
[2022-12-07] MEDS: ACETAMINOPHEN 325 MG TABLET (FP) PO PRN (20:47)
[2022-12-08] MEDS: hydrALAZINE HCL 20 MG/ML VIAL IVPUSH PRN ×2 (01:27→18:16)
[2022-12-08] MEDS: LEVOTHYROXINE NA 88 MCG TABLET (FP) PO SCH (06:04)
[2022-12-08] MEDS: ACETAMINOPHEN 325 MG TABLET (FP) PO PRN ×2 (09:20→20:25)
[2022-12-08] MEDS: FLUDROCORTISONE ACETATE 0.1 MG TABLET (FP) PO SCH (10:08)
[2022-12-08] MEDS: ENOXAPARIN NA (PORCINE) 40 MG/0.4 ML DISP.SYRIN SQ SCH (10:09)
[2022-12-08] MEDS: PREGABALIN 25 MG CAPSULE PO SCH ×2 (10:09→21:43)
[2022-12-08] MEDS: ASPIRIN COATED 81 MG TABLET.EC PO SCH (10:10)
[2022-12-08] MEDS: SERTRALINE HCL 25 MG TABLET (FP) PO SCH (10:10)
[2022-12-08] MEDS: ERTAPENEM SODIUM 1 GM in SODIUM CHLORIDE 50 ML IVPB SCH (13:06)
[2022-12-08] MEDS: ATENOLOL 50 MG TABLET (FP) PO SCH (14:10)
[2022-12-08] MEDS ORDERED: ATORVASTATIN CA 20 MG TABLET (FP) PO SCH (22:00)
[2022-12-08] MEDS ORDERED: PANTOPRAZOLE 40 MG TABLET PO SCH (22:00)
[2022-12-09] MEDS: LEVOTHYROXINE NA 88 MCG TABLET (FP) PO SCH (06:21)
[2022-12-09 08:13] LABS: POTASSIUM 4.4 mmol/L (3.5-5.1)
[2022-12-09 08:27] LABS: ALBUMIN 3.1 g/dl (3.4-5.0); BLOOD UREA NITROGEN 23.8 mg/dL (7-18); CALCIUM 8.7 mg/dL (8.5-10.1)
[2022-12-09 08:28] LABS: BASO % 1.1 % (0-2.0); EOS % 4.4 % (0-4.5); HEMOGLOBIN 12.2 GM/dL (10.7-15.3); LYMPH % 22.1 % (8-40); MCHC 34.9 g/dl (32.0-36.0); MEAN CELL VOLUME 91.8 fl (80-96); MEAN PLT VOLUME 7.9 fl (7.5-11.1); MONO % 12.3 % (3.8-10.2); NEUT % 60.1 % (42.8-82.8); PLATELET COUNT 218 10^3/uL (134-434); RBC 3.81 M/mm3 (3.60-5.2); RDW 14.2 % (11.6-15.6); WHITE BLOOD COUNT 4.7 K/mm3 (4.0-10.0)
[2022-12-09 08:30] LABS: CREATININE 0.7 mg/dL (0.55-1.3)
[2022-12-09 08:32] LABS: BILIRUBIN,TOTAL 0.9 mg/dL (0.2-1); TOT PROT 5.3 g/dl (6.4-8.2)
[2022-12-09 09:10] VITALS: RESP 18
[2022-12-09] MEDS: FLUDROCORTISONE ACETATE 0.1 MG TABLET (FP) PO SCH (09:11)
[2022-12-09] MEDS: PREGABALIN 25 MG CAPSULE PO SCH (09:11)
[2022-12-09] MEDS: SERTRALINE HCL 25 MG TABLET (FP) PO SCH (09:11)
[2022-12-09] MEDS: ENOXAPARIN NA (PORCINE) 40 MG/0.4 ML DISP.SYRIN SQ SCH (09:11)
[2022-12-09] MEDS: ATENOLOL 50 MG TABLET (FP) PO SCH (09:12)
[2022-12-09] MEDS: ASPIRIN COATED 81 MG TABLET.EC PO SCH (09:13)
[2022-12-09] MEDS: ERTAPENEM SODIUM 1 GM in SODIUM CHLORIDE 50 ML IVPB SCH (11:45)
[2022-12-09] MEDS: ACETAMINOPHEN 325 MG TABLET (FP) PO PRN (13:09)
[2022-12-09 14:52] VITALS: BP 122/58; PULSE 63; TEMP 97.6
== END 2022-12-09 17:55 | disposition home or self-care (01) | DRG 69 ==
LOC: JER 14:45 → JERBED 16:08 → J4S 19:09
PROVIDERS: ADMIT Internal Medicine; ATTEND Nurse Practitioner Family
DX: G45.9 Transient cerebral ischemic attack, unspecified (principal); N39.0 Urinary tract infection, site not specified; I50.32 Chronic diastolic (congestive) heart failure; K21.9 Gastro-esophageal reflux disease without esophagitis; I25.10 Atherosclerotic heart disease of native coronary artery without angina pectoris; E03.9 Hypothyroidism, unspecified; M54.50 Low back pain, unspecified; E78.5 Hyperlipidemia, unspecified; R51.9 Headache, unspecified; Z95.5 Presence of coronary angioplasty implant and graft
CPT/HCPCS: 36415; 70450-TC; 70551-TC; 71045-TC-FY; 80053; 80061; 81003; 82550; 84439; 84443; 84484; 85025; 85610; 85730; 86850; 86900; 86901; 93005; 93010; 93880-TC; 97116-GP; 97161-GP; 99285-25

== ENCOUNTER 2022-12-10 10:30 | Inpatient (IN) | payer OTHER, MEDICARE ==
[2022-12-10 10:49] VITALS: BMI 21.2
[2022-12-10 13:29] LABS: BASO % 0.8 % (0-2.0); EOS % 0.7 % (0-4.5); HEMATOCRIT 41.8 % (32.4-45.2); HEMOGLOBIN 13.6 GM/dL (10.7-15.3); LYMPH % 11.3 % (8-40); MCH 31.8 pg (25.7-33.7); MCHC 32.5 g/dl (32.0-36.0); MEAN CELL VOLUME 97.7 fl (80-96); MEAN PLT VOLUME 8.6 fl (7.5-11.1); MONO % 10.3 % (3.8-10.2); NEUT % 76.9 % (42.8-82.8); PLATELET COUNT 250 10^3/uL (134-434); RBC 4.28 M/mm3 (3.60-5.2); RDW 14.2 % (11.6-15.6); WHITE BLOOD COUNT 7.6 K/mm3 (4.0-10.0)
[2022-12-10 13:45] LABS: POTASSIUM 5.9 mmol/L (3.5-5.1)
[2022-12-10 13:48] LABS: ALBUMIN 3.3 g/dl (3.4-5.0); BLOOD UREA NITROGEN 22.7 mg/dL (7-18)
[2022-12-10 13:51] LABS: CREATININE 0.9 mg/dL (0.55-1.3)
[2022-12-10 13:53] LABS: TOT PROT 6.2 g/dl (6.4-8.2)
[2022-12-10] MEDS ORDERED: ACETAMINOPHEN 1000 MG/100 ML BAG IVPB ONE (14:50)
[2022-12-10] MEDS ORDERED: ACETAMINOPHEN INJECTION 100 ML IVPB ONE (14:54)
[2022-12-10 15:02] LABS: EPI CELLS 36 /uL (0-25.1); HYALINE CASTS 2 /uL (0-3.1); PH,URINE 7.5 (5.0-8.0); URINE APPEARANCE CLEAR; URINE BACTERIA 24 /uL (0-1359); URINE BILIRUBIN NEGATIVE (NEGATIVE); URINE COLOR YELLOW; URINE GLUCOSE (UA) NEGATIVE (NEGATIVE); URINE KETONE NEGATIVE (NEGATIVE); URINE LEUK ESTERASE 1+ (NEGATIVE); URINE NITRITE NEGATIVE (NEGATIVE); URINE PROTEIN TRACE (NEGATIVE); URINE RBC 7 /uL (0-23.9); URINE WBC 23 /uL (0-25.8)
[2022-12-10] MEDS ORDERED: METOPROLOL TARTRATE 25 MG TABLET (FP) PO ONE (16:20)
[2022-12-10] MEDS ORDERED: METOPROLOL TARTRATE 25 MG TABLET (FP) ONE (16:24)
[2022-12-10] MEDS ORDERED: DEXTROSE 5%-0.45% SALINE 1,000 ML IV SCH (16:45)
[2022-12-10] MEDS ORDERED: PANTOPRAZOLE 40 MG TABLET PO ONE (21:13)
[2022-12-10] MEDS ORDERED: ATORVASTATIN CA 20 MG TABLET (FP) ONE (21:13)
[2022-12-10] MEDS: ATORVASTATIN CA 20 MG TABLET (FP) PO SCH (21:17)
[2022-12-10] MEDS: ACETAMINOPHEN 325 MG TABLET (FP) PO PRN (21:17)
[2022-12-10] MEDS: PANTOPRAZOLE 40 MG TABLET PO SCH (21:17)
[2022-12-11] MEDS: LEVOTHYROXINE NA 88 MCG TABLET (FP) PO SCH (07:01)
[2022-12-11 07:54] LABS: POTASSIUM 4.2 mmol/L (3.5-5.1)
[2022-12-11 08:01] LABS: ALBUMIN 3.2 g/dl (3.4-5.0); BLOOD UREA NITROGEN 18.7 mg/dL (7-18); CALCIUM 8.5 mg/dL (8.5-10.1); MAGNESIUM 2.2 mg/dL (1.8-2.4)
[2022-12-11 08:04] LABS: CREATININE 0.8 mg/dL (0.55-1.3); PHOSPHOROUS 2.5 mg/dL (2.5-4.9)
[2022-12-11 08:06] LABS: TOT PROT 5.7 g/dl (6.4-8.2)
[2022-12-11 08:12] LABS: BASO % 1.3 % (0-2.0); EOS % 2.8 % (0-4.5); HEMATOCRIT 37.2 % (32.4-45.2); HEMOGLOBIN 12.7 GM/dL (10.7-15.3); LYMPH % 20.7 % (8-40); MCH 32.2 pg (25.7-33.7); MEAN CELL VOLUME 94.7 fl (80-96); MEAN PLT VOLUME 8.1 fl (7.5-11.1); MONO % 10.8 % (3.8-10.2); NEUT % 64.4 % (42.8-82.8); PLATELET COUNT 242 10^3/uL (134-434); RBC 3.93 M/mm3 (3.60-5.2); RDW 13.6 % (11.6-15.6); WHITE BLOOD COUNT 4.8 K/mm3 (4.0-10.0)
[2022-12-11] MEDS: ASPIRIN COATED 81 MG TABLET.EC PO SCH (09:04)
[2022-12-11] MEDS: ENOXAPARIN NA (PORCINE) 40 MG/0.4 ML DISP.SYRIN SQ SCH (09:04)
[2022-12-11] MEDS: SERTRALINE HCL 25 MG TABLET (FP) PO SCH (09:04)
[2022-12-11] MEDS ORDERED: PATIENT'S OWN MEDICATION (NON-FORMULARY) (Bisoprolol Fumarate [Bisoprolol Fumarate] 5 MG T PO SCH (10:00)
[2022-12-11] MEDS ORDERED: ATENOLOL 25 MG TABLET (FP) PO SCH ×2 (10:45→12:00)
[2022-12-11] MEDS: DEXTROSE 5%-0.45% SALINE 1,000 ML IV SCH ×2 (13:20→13:33)
[2022-12-11] MEDS: ATORVASTATIN CA 20 MG TABLET (FP) PO SCH (21:08)
[2022-12-11] MEDS: PANTOPRAZOLE 40 MG TABLET PO SCH (21:08)
[2022-12-12] MEDS: LEVOTHYROXINE NA 88 MCG TABLET (FP) PO SCH ×2 (06:03→09:33)
[2022-12-12 07:36] LABS: HEMATOCRIT 35.2 % (32.4-45.2); HEMOGLOBIN 12.1 GM/dL (10.7-15.3); MCHC 34.5 g/dl (32.0-36.0); MEAN CELL VOLUME 92.6 fl (80-96); MEAN PLT VOLUME 7.9 fl (7.5-11.1); PLATELET COUNT 212 10^3/uL (134-434); RDW 14.1 % (11.6-15.6)
[2022-12-12 08:35] LABS: CALCIUM 7.9 mg/dL (8.5-10.1)
[2022-12-12 08:36] LABS: BLOOD UREA NITROGEN 15.6 mg/dL (7-18); MAGNESIUM 2.1 mg/dL (1.8-2.4)
[2022-12-12 08:38] LABS: CREATININE 0.6 mg/dL (0.55-1.3)
[2022-12-12 08:39] LABS: BILIRUBIN,TOTAL 0.9 mg/dL (0.2-1)
[2022-12-12 08:40] LABS: TOT PROT 5.1 g/dl (6.4-8.2)
[2022-12-12] MEDS: SERTRALINE HCL 25 MG TABLET (FP) PO SCH (09:33)
[2022-12-12] MEDS: ASPIRIN COATED 81 MG TABLET.EC PO SCH (09:33)
[2022-12-12] MEDS: ENOXAPARIN NA (PORCINE) 40 MG/0.4 ML DISP.SYRIN SQ SCH (09:34)
[2022-12-12] MEDS ORDERED: ATENOLOL 25 MG TABLET (FP) PO SCH (12:00)
[2022-12-12] MEDS ORDERED: NAPH,MB-DB/K PH,MBDB POWDER PACKET PO ONE ×2 (18:14→19:18)
[2022-12-12] MEDS: ATORVASTATIN CA 20 MG TABLET (FP) PO SCH (22:10)
[2022-12-12] MEDS: PANTOPRAZOLE 40 MG TABLET PO SCH (22:11)
[2022-12-12] MEDS: ACETAMINOPHEN 325 MG TABLET (FP) PO PRN (22:11)
[2022-12-13] MEDS: LEVOTHYROXINE NA 88 MCG TABLET (FP) PO SCH (06:48)
[2022-12-13] MEDS ORDERED: FAMOTIDINE 20 MG TABLET PO SCH (10:00)
[2022-12-13] MEDS: ENOXAPARIN NA (PORCINE) 40 MG/0.4 ML DISP.SYRIN SQ SCH (10:36)
[2022-12-13] MEDS: ASPIRIN COATED 81 MG TABLET.EC PO SCH (10:36)
[2022-12-13] MEDS: SERTRALINE HCL 25 MG TABLET (FP) PO SCH (10:36)
[2022-12-13] MEDS ORDERED: POLYETHYLENE GLYCOL (HEALTHYLAX) 3350 17 GM PACKET PO PRN (10:59)
[2022-12-13] MEDS ORDERED: MAG HYDROX/AL HYDROX/SIMETH 30 ML UNIT-DOSE CUP PO PRN (11:49)
[2022-12-13] MEDS: ATENOLOL 25 MG TABLET (FP) PO SCH (12:21)
[2022-12-13] MEDS ORDERED: FAMOTIDINE 20 MG TABLET PO PRN (13:32)
[2022-12-13] MEDS: ACETAMINOPHEN 325 MG TABLET (FP) PO PRN (16:11)
[2022-12-13] MEDS: PANTOPRAZOLE 40 MG TABLET PO SCH (22:36)
[2022-12-13] MEDS: ATORVASTATIN CA 20 MG TABLET (FP) PO SCH (22:36)
[2022-12-14 06:49] VITALS: RESP 20
[2022-12-14] MEDS ORDERED: LEVOTHYROXINE NA 88 MCG TABLET (FP) PO SCH ×2 (07:00)
[2022-12-14 08:13] LABS: HEMATOCRIT 35.8 % (32.4-45.2); MCH 31.7 pg (25.7-33.7); MCHC 33.6 g/dl (32.0-36.0); MEAN CELL VOLUME 94.6 fl (80-96); MEAN PLT VOLUME 8.7 fl (7.5-11.1); PLATELET COUNT 224 10^3/uL (134-434); RBC 3.78 M/mm3 (3.60-5.2); RDW 13.7 % (11.6-15.6); WHITE BLOOD COUNT 5.1 K/mm3 (4.0-10.0)
[2022-12-14 08:21] LABS: POTASSIUM 4.3 mmol/L (3.5-5.1)
[2022-12-14 08:23] LABS: ALBUMIN 3.2 g/dl (3.4-5.0); CALCIUM 8.6 mg/dL (8.5-10.1)
[2022-12-14 08:24] LABS: BLOOD UREA NITROGEN 19.4 mg/dL (7-18); MAGNESIUM 2.2 mg/dL (1.8-2.4)
[2022-12-14 08:27] LABS: CREATININE 0.7 mg/dL (0.55-1.3); PHOSPHOROUS 2.4 mg/dL (2.5-4.9)
[2022-12-14 08:28] LABS: TOT PROT 5.3 g/dl (6.4-8.2)
[2022-12-14] MEDS: SERTRALINE HCL 25 MG TABLET (FP) PO SCH (09:13)
[2022-12-14] MEDS: ASPIRIN COATED 81 MG TABLET.EC PO SCH (09:13)
[2022-12-14] MEDS: ENOXAPARIN NA (PORCINE) 40 MG/0.4 ML DISP.SYRIN SQ SCH (09:13)
[2022-12-14 09:21] VITALS: BP 142/74; PULSE 67; TEMP 97.7
[2022-12-14] MEDS: ACETAMINOPHEN 325 MG TABLET (FP) PO PRN (12:57)
[2022-12-14] MEDS: ATENOLOL 25 MG TABLET (FP) PO SCH (12:57)
== END 2022-12-14 18:55 | DRG 315 ==
LOC: JER 10:30 → JERBED 16:21 → J4W 12-11 00:59 → OBSVTOIN 12-11 11:29
PROVIDERS: ADMIT Internal Medicine; ATTEND Internal Medicine
DX: R09.89 Other specified symptoms and signs involving the circulatory and respiratory systems (principal); G45.9 Transient cerebral ischemic attack, unspecified; I50.32 Chronic diastolic (congestive) heart failure; I95.1 Orthostatic hypotension; R55 Syncope and collapse; I11.0 Hypertensive heart disease with heart failure; E03.9 Hypothyroidism, unspecified; E78.5 Hyperlipidemia, unspecified; I25.10 Atherosclerotic heart disease of native coronary artery without angina pectoris; M47.9 Spondylosis, unspecified; I16.0 Hypertensive urgency; F41.9 Anxiety disorder, unspecified
CPT/HCPCS: 36415; 70450-TC; 80053; 81003; 83735; 84100; 84443; 84484; 85025; 85027; 87086; 93005; 93010; 97116-GP; 97162-GP; 99285-25; G0378

== ENCOUNTER 2023-01-26 12:38 | Observation (INO) | payer OTHER, MEDICARE ==
[2023-01-26 13:07] VITALS: BP 135/63; PULSE 66; RESP 16; TEMP 98.1; BMI 24.4
[2023-01-26] MEDS ORDERED: SODIUM CHLORIDE 500 ML IV STA (13:39)
[2023-01-26 15:09] LABS: BASO % 0.6 % (0-2.0); EOS % 1.5 % (0-4.5); HEMATOCRIT 36.1 % (32.4-45.2); HEMOGLOBIN 12.1 GM/dL (10.7-15.3); LYMPH % 13.5 % (8-40); MCH 31.6 pg (25.7-33.7); MCHC 33.6 g/dl (32.0-36.0); MEAN CELL VOLUME 94.2 fl (80-96); MEAN PLT VOLUME 8.1 fl (7.5-11.1); MONO % 10.8 % (3.8-10.2); NEUT % 73.6 % (42.8-82.8); PLATELET COUNT 249 10^3/uL (134-434); RBC 3.83 M/mm3 (3.60-5.2); RDW 13.3 % (11.6-15.6); WHITE BLOOD COUNT 6.8 K/mm3 (4.0-10.0)
[2023-01-26 15:14] LABS: INR 1.02 (0.83-1.09); PROTHROMBIN TIME (PATIENT) 11.8 SEC (9.7-13.0)
[2023-01-26 15:17] LABS: ACTIVATED PTT 30.3 SECONDS (25.2-36.5)
[2023-01-26 15:28] LABS: POTASSIUM 3.6 mmol/L (3.5-5.1)
[2023-01-26 15:31] LABS: ALBUMIN 3.7 g/dl (3.4-5.0); CALCIUM 8.8 mg/dL (8.5-10.1)
[2023-01-26 15:33] LABS: CREATININE 0.9 mg/dL (0.55-1.3)
[2023-01-26 15:35] LABS: BILIRUBIN,TOTAL 0.8 mg/dL (0.2-1); TOT PROT 6.4 g/dl (6.4-8.2)
[2023-01-26] MEDS ORDERED: ACETAMINOPHEN 1000 MG/100 ML BAG IVPB ONE (15:45)
[2023-01-26] MEDS ORDERED: ACETAMINOPHEN INJECTION 100 ML IVPB ONE (16:05)
[2023-01-26 17:28] LABS: EPI CELLS 15 /uL (0-25.1); HYALINE CASTS 0 /uL (0-3.1); URINE APPEARANCE CLEAR; URINE BACTERIA 21 /uL (0-1359); URINE BILIRUBIN NEGATIVE (NEGATIVE); URINE COLOR YELLOW; URINE GLUCOSE (UA) NEGATIVE (NEGATIVE); URINE KETONE NEGATIVE (NEGATIVE); URINE LEUK ESTERASE NEGATIVE (NEGATIVE); URINE NITRITE NEGATIVE (NEGATIVE); URINE PROTEIN 1+ (NEGATIVE); URINE RBC 14 /uL (0-23.9); URINE UROBILINOGEN 0.2 mg/dL (0.2-1.0); URINE WBC 5 /uL (0-25.8)
== END 2023-01-26 18:45 | disposition left against medical advice (07) ==
LOC: JER 12:38 → JERBED 17:26
PROVIDERS: ADMIT Internal Medicine; ATTEND Internal Medicine
PROC: 3E033NZ Introduction of Analgesics, Hypnotics, Sedatives into Peripheral Vein, Percutaneous Approach (ICD-10-PCS; principal; 2023-01-26)
PROC: 3E0337Z Introduction of Electrolytic and Water Balance Substance into Peripheral Vein, Percutaneous Approach (ICD-10-PCS; 2023-01-26)
DX: R51.9 Headache, unspecified (principal); I11.9 Hypertensive heart disease without heart failure; R41.0 Disorientation, unspecified; I25.10 Atherosclerotic heart disease of native coronary artery without angina pectoris; E03.9 Hypothyroidism, unspecified; K21.9 Gastro-esophageal reflux disease without esophagitis; Z87.440 Personal history of urinary (tract) infections; Z88.0 Allergy status to penicillin; Z88.8 Allergy status to other drugs, medicaments and biological substances; Z88.2 Allergy status to sulfonamides
CPT/HCPCS: 0241U-QW; 36415; 70450-TC; 71045-TC-FY; 80053; 81003; 84484; 85025; 85610; 85730; 87086; 93005; 93010; 96361; 96374; 99285-25; G0378

== ENCOUNTER 2023-01-27 11:13 | Observation (INO) | payer OTHER, MEDICARE ==
[2023-01-27 12:10] LABS: BASO % 1.1 % (0-2.0); EOS % 2.4 % (0-4.5); HEMATOCRIT 36.1 % (32.4-45.2); HEMOGLOBIN 12.3 GM/dL (10.7-15.3); LYMPH % 12.2 % (8-40); MCH 31.1 pg (25.7-33.7); MCHC 34.1 g/dl (32.0-36.0); MEAN CELL VOLUME 91.1 fl (80-96); MEAN PLT VOLUME 7.9 fl (7.5-11.1); MONO % 9.3 % (3.8-10.2); PLATELET COUNT 247 10^3/uL (134-434); RBC 3.97 M/mm3 (3.60-5.2); RDW 13.5 % (11.6-15.6); WHITE BLOOD COUNT 6.1 K/mm3 (4.0-10.0)
[2023-01-27 12:16] LABS: INR 0.99 (0.83-1.09); PROTHROMBIN TIME (PATIENT) 11.5 SEC (9.7-13.0)
[2023-01-27 12:19] LABS: ACTIVATED PTT 29.9 SECONDS (25.2-36.5)
[2023-01-27 12:29] LABS: CHLORIDE 107 mmol/L (98-107); POTASSIUM 3.8 mmol/L (3.5-5.1); SODIUM 144 mmol/L (136-145)
[2023-01-27 12:31] LABS: CALCIUM 8.5 mg/dL (8.5-10.1)
[2023-01-27 12:32] LABS: ALBUMIN 3.5 g/dl (3.4-5.0); ANION GAP 4 mmol/L (4-13); CO2 32 mmol/L (21-32)
[2023-01-27 12:33] LABS: BLOOD UREA NITROGEN 26.4 mg/dL (7-18); GLUCOSE,RANDOM 92 mg/dL (74-106)
[2023-01-27 12:35] LABS: CREATININE 0.8 mg/dL (0.55-1.3); SGOT/AST 29 U/L (15-37); SGPT/ALT 25 U/L (13-61)
[2023-01-27 12:36] LABS: CHOLESTEROL 131 mg/dL (50-200)
[2023-01-27 12:37] LABS: TOT PROT 6.2 g/dl (6.4-8.2)
[2023-01-27 12:38] LABS: LDL CHOLESTEROL (ONLY SJRH) 52 mg/dL (5-100)
[2023-01-27 12:39] LABS: ALK PHOS 62 U/L (45-117); HDL CHOLESTEROL 77 mg/dL (40-60)
[2023-01-27] MEDS ORDERED: ASPIRIN 81 MG CHEWABLE TABLETS PO ONE (12:41)
[2023-01-27] MEDS ORDERED: ACETAMINOPHEN 325 MG TABLET (FP) PO ONE (12:50)
[2023-01-27] MEDS ORDERED: ASPIRIN 81 MG CHEWABLE TABLETS ONE (12:50)
[2023-01-27] MEDS ORDERED: ACETAMINOPHEN 325 MG TABLET (FP) ONE ×2 (12:51→21:06)
[2023-01-27 14:39] LABS: PH,URINE 7.5 (5.0-8.0); URINE APPEARANCE CLEAR; URINE BILIRUBIN NEGATIVE (NEGATIVE); URINE COLOR YELLOW; URINE GLUCOSE (UA) NEGATIVE (NEGATIVE); URINE KETONE NEGATIVE (NEGATIVE); URINE LEUK ESTERASE NEGATIVE (NEGATIVE); URINE NITRITE NEGATIVE (NEGATIVE); URINE PROTEIN TRACE (NEGATIVE); URINE UROBILINOGEN 0.2 mg/dL (0.2-1.0)
[2023-01-27] MEDS ORDERED: ATENOLOL 25 MG TABLET (FP) PO ONE (17:00)
[2023-01-27] MEDS ORDERED: ATENOLOL 25 MG TABLET (FP) ONE (18:21)
[2023-01-27] MEDS ORDERED: ACETAMINOPHEN 500 MG TABLET (FP) PO ONE (20:48)
[2023-01-27] MEDS ORDERED: FLUDROCORTISONE ACETATE 0.1 MG TABLET (FP) PO SCH (22:00)
[2023-01-27] MEDS ORDERED: ATORVASTATIN CA 20 MG TABLET (FP) PO SCH (22:00)
[2023-01-28] MEDS ORDERED: ATORVASTATIN CA 20 MG TABLET (FP) ONE (00:09)
[2023-01-28] MEDS ORDERED: PREGABALIN 25 MG CAPSULE ONE ×2 (00:09→10:21)
[2023-01-28] MEDS ORDERED: PANTOPRAZOLE 40 MG TABLET PO ONE (00:09)
[2023-01-28] MEDS: ATORVASTATIN CA 40 MG TABLET (FP) PO SCH ×2 (00:15→21:38)
[2023-01-28] MEDS: PANTOPRAZOLE 40 MG TABLET PO SCH ×2 (00:16→21:38)
[2023-01-28] MEDS: PREGABALIN 25 MG CAPSULE PO SCH ×3 (00:16→21:38)
[2023-01-28] MEDS ORDERED: LEVOTHYROXINE NA 88 MCG TABLET (FP) PO SCH (07:00)
[2023-01-28 07:37] LABS: BASO % 1.8 % (0-2.0); EOS % 5.3 % (0-4.5); HEMATOCRIT 33.1 % (32.4-45.2); HEMOGLOBIN 11.3 GM/dL (10.7-15.3); LYMPH % 27.7 % (8-40); MCH 32.1 pg (25.7-33.7); MCHC 34.1 g/dl (32.0-36.0); MEAN PLT VOLUME 8.2 fl (7.5-11.1); MONO % 14.3 % (3.8-10.2); NEUT % 50.9 % (42.8-82.8); PLATELET COUNT 212 10^3/uL (134-434); RBC 3.52 M/mm3 (3.60-5.2); RDW 13.2 % (11.6-15.6); WHITE BLOOD COUNT 4.5 K/mm3 (4.0-10.0)
[2023-01-28] MEDS ORDERED: LEVOTHYROXINE NA 88 MCG TABLET (FP) ONE (07:37)
[2023-01-28] MEDS: LEVOTHYROXINE NA 88 MCG TABLET (FP) PO SCH (07:40)
[2023-01-28 07:57] LABS: ALBUMIN 3.1 g/dl (3.4-5.0); CALCIUM 7.9 mg/dL (8.5-10.1)
[2023-01-28 07:58] LABS: MAGNESIUM 2.1 mg/dL (1.8-2.4)
[2023-01-28 08:00] LABS: CREATININE 0.7 mg/dL (0.55-1.3); PHOSPHOROUS 2.9 mg/dL (2.5-4.9)
[2023-01-28 08:01] LABS: BILIRUBIN,TOTAL 0.8 mg/dL (0.2-1); TOT PROT 5.4 g/dl (6.4-8.2)
[2023-01-28] MEDS ORDERED: POTASSIUM CHLORIDE TABS 20 MEQ TABLET.ER (FP) PO ONE ×2 (10:00→10:21)
[2023-01-28] MEDS ORDERED: PATIENT'S OWN MEDICATION (NON-FORMULARY) (Biotin [Biotin] 1 MG Capsule) PO SCH (10:00)
[2023-01-28] MEDS ORDERED: ASPIRIN COATED 81 MG TABLET.EC ONE (10:21)
[2023-01-28] MEDS ORDERED: SERTRALINE HCL 50 MG TABLET (FP) ONE (10:21)
[2023-01-28] MEDS ORDERED: ENOXAPARIN NA (PORCINE) 40 MG/0.4 ML DISP.SYRIN SQ ONE (10:22)
[2023-01-28] MEDS: ASPIRIN COATED 81 MG TABLET.EC PO SCH (10:42)
[2023-01-28] MEDS: SERTRALINE HCL 25 MG TABLET (FP) PO SCH (10:43)
[2023-01-28] MEDS: ENOXAPARIN NA (PORCINE) 40 MG/0.4 ML DISP.SYRIN SQ SCH (10:43)
[2023-01-28] MEDS: CYANOCOBALAMIN 1,000 MCG TABLET (FP) PO SCH (10:43)
[2023-01-28] MEDS: PATIENT'S OWN MEDICATION (NON-FORMULARY) (Bisoprolol Fumarate [Bisoprolol Fumarate] 5 MG T PO SCH (13:18)
[2023-01-28] MEDS: amLODIPine BESYLATE 5 MG TABLET (FP) PO SCH (14:57)
[2023-01-29 05:29] VITALS: BMI 22.9
[2023-01-29] MEDS: LEVOTHYROXINE NA 88 MCG TABLET (FP) PO SCH (06:26)
[2023-01-29] MEDS: amLODIPine BESYLATE 5 MG TABLET (FP) PO SCH (10:16)
[2023-01-29] MEDS: SERTRALINE HCL 25 MG TABLET (FP) PO SCH (10:16)
[2023-01-29] MEDS: ENOXAPARIN NA (PORCINE) 40 MG/0.4 ML DISP.SYRIN SQ SCH (10:16)
[2023-01-29] MEDS: ASPIRIN COATED 81 MG TABLET.EC PO SCH (10:16)
[2023-01-29] MEDS: CYANOCOBALAMIN 1,000 MCG TABLET (FP) PO SCH (10:16)
[2023-01-29] MEDS: PREGABALIN 25 MG CAPSULE PO SCH (10:16)
[2023-01-29] MEDS: PATIENT'S OWN MEDICATION (NON-FORMULARY) (Bisoprolol Fumarate [Bisoprolol Fumarate] 5 MG T PO SCH (14:00)
[2023-01-29 18:39] VITALS: BP 145/64; PULSE 60; RESP 18; TEMP 97.4
[2023-02-01] MEDS ORDERED: LEVOTHYROXINE NA 88 MCG TABLET (FP) PO SCH (07:00)
== END 2023-01-29 15:58 | disposition home or self-care (01) ==
LOC: JER 11:13 → JERBED 13:47 → J5S 01-28 20:17
PROVIDERS: ADMIT Internal Medicine
PROC: 3E023GC Introduction of Other Therapeutic Substance into Muscle, Percutaneous Approach (ICD-10-PCS; principal; 2023-01-27)
DX: I11.0 Hypertensive heart disease with heart failure (principal); I25.10 Atherosclerotic heart disease of native coronary artery without angina pectoris; Z95.5 Presence of coronary angioplasty implant and graft; M62.81 Muscle weakness (generalized); M19.90 Unspecified osteoarthritis, unspecified site; E78.5 Hyperlipidemia, unspecified; G89.29 Other chronic pain; K21.9 Gastro-esophageal reflux disease without esophagitis; Z86.73 Personal history of transient ischemic attack (TIA), and cerebral infarction without residual deficits; M54.50 Low back pain, unspecified; E03.9 Hypothyroidism, unspecified; F41.8 Other specified anxiety disorders; Z87.440 Personal history of urinary (tract) infections; Z90.49 Acquired absence of other specified parts of digestive tract; Z88.0 Allergy status to penicillin; Z88.8 Allergy status to other drugs, medicaments and biological substances; Z88.2 Allergy status to sulfonamides
CPT/HCPCS: 36415; 70450-TC; 70551-TC; 71045-TC-FY; 73030-TC-LT-FY; 80053; 80061; 81003; 82550; 83036; 83735; 84100; 85025; 85610; 85730; 93005; 93010; 93306-TC; 93880-TC; 96372; 97116-GP; 97162-GP; 99285-25; G0378

== ENCOUNTER 2023-02-19 13:16 | Inpatient (IN) | payer OTHER, MEDICARE ==
[2023-02-19 13:38] VITALS: BMI 21.4
[2023-02-19] MEDS ORDERED: ACETAMINOPHEN 1000 MG/100 ML BAG IVPB ONE (15:09)
[2023-02-19] MEDS ORDERED: ACETAMINOPHEN INJECTION 100 ML IVPB ONE (15:14)
[2023-02-19 16:22] LABS: BASO % 0.4 % (0-2.0); EOS % 0.2 % (0-4.5); HEMATOCRIT 42.5 % (32.4-45.2); HEMOGLOBIN 13.7 GM/dL (10.7-15.3); MCH 30.5 pg (25.7-33.7); MCHC 32.3 g/dl (32.0-36.0); MEAN CELL VOLUME 94.3 fl (80-96); MEAN PLT VOLUME 8.4 fl (7.5-11.1); MONO % 10.1 % (3.8-10.2); NEUT % 83.3 % (42.8-82.8); PLATELET COUNT 309 10^3/uL (134-434); RBC 4.51 M/mm3 (3.60-5.2); RDW 13.8 % (11.6-15.6); WHITE BLOOD COUNT 11.2 K/mm3 (4.0-10.0)
[2023-02-19 16:30] LABS: INR 0.97 (0.83-1.09); PROTHROMBIN TIME (PATIENT) 11.2 SEC (9.7-13.0)
[2023-02-19 16:33] LABS: ACTIVATED PTT 24.4 SECONDS (25.2-36.5)
[2023-02-19 16:35] LABS: POTASSIUM 4.3 mmol/L (3.5-5.1)
[2023-02-19 16:37] LABS: ALBUMIN 3.8 g/dl (3.4-5.0); CALCIUM 9.7 mg/dL (8.5-10.1)
[2023-02-19 16:38] LABS: BLOOD UREA NITROGEN 31.6 mg/dL (7-18)
[2023-02-19 16:42] LABS: BILIRUBIN,TOTAL 1.2 mg/dL (0.2-1); TOT PROT 6.4 g/dl (6.4-8.2)
[2023-02-19] MEDS ORDERED: ACETAMINOPHEN 500 MG TABLET (FP) PO ONE (19:22)
[2023-02-19] MEDS ORDERED: ACETAMINOPHEN 325 MG TABLET (FP) ONE (19:26)
[2023-02-19] MEDS ORDERED: ATORVASTATIN CA 40 MG TABLET (FP) PO ONE (19:56)
[2023-02-19] MEDS ORDERED: FAMOTIDINE 10 MG TABLET PO ONE (19:57)
[2023-02-19] MEDS ORDERED: PREGABALIN 25 MG CAPSULE PO ONE (19:57)
[2023-02-19] MEDS ORDERED: FAMOTIDINE 20 MG TABLET ONE (20:33)
[2023-02-19] MEDS ORDERED: ATORVASTATIN CA 40 MG TABLET (FP) ONE (20:33)
[2023-02-19] MEDS ORDERED: PREGABALIN 25 MG CAPSULE ONE (20:33)
[2023-02-19] MEDS ORDERED: ALPRAZolam 0.25 MG TABLET PO PRN (21:56)
[2023-02-19] MEDS ORDERED: ASPIRIN 81 MG CHEWABLE TABLETS PO ONE (21:56)
[2023-02-19] MEDS ORDERED: MIDODRINE HCL 2.5 MG TABLET PO PRN (21:56)
[2023-02-19] MEDS ORDERED: PANTOPRAZOLE 40 MG TABLET PO ONE (23:00)
[2023-02-19] MEDS ORDERED: HEPARIN NA (PORCINE) 5,000 UNITS/ML 1ML VIAL ONE (23:01)
[2023-02-19] MEDS ORDERED: ASPIRIN 81 MG CHEWABLE TABLETS ONE (23:01)
[2023-02-19] MEDS: HEPARIN NA (PORCINE) 5,000 UNITS/ML 1ML VIAL SQ SCH (23:17)
[2023-02-19] MEDS: FLUDROCORTISONE ACETATE 0.1 MG TABLET (FP) PO SCH (23:17)
[2023-02-19] MEDS: PANTOPRAZOLE 40 MG TABLET PO SCH (23:18)
[2023-02-19] MEDS: PREGABALIN 25 MG CAPSULE PO SCH (23:18)
[2023-02-19] MEDS: ATORVASTATIN CA 40 MG TABLET (FP) PO SCH (23:18)
[2023-02-20] MEDS ORDERED: ALPRAZolam 0.25 MG TABLET ONE (04:26)
[2023-02-20] MEDS ORDERED: MIDODRINE HCL 5 MG TABLET PO PRN (06:36)
[2023-02-20 07:51] LABS: BASO % 0.7 % (0-2.0); EOS % 1.3 % (0-4.5); HEMATOCRIT 37.1 % (32.4-45.2); HEMOGLOBIN 12.3 GM/dL (10.7-15.3); LYMPH % 11.1 % (8-40); MCH 31.1 pg (25.7-33.7); MCHC 33.1 g/dl (32.0-36.0); MEAN CELL VOLUME 93.9 fl (80-96); MEAN PLT VOLUME 8.3 fl (7.5-11.1); NEUT % 75.9 % (42.8-82.8); PLATELET COUNT 296 10^3/uL (134-434); RBC 3.95 M/mm3 (3.60-5.2); RDW 13.8 % (11.6-15.6); WHITE BLOOD COUNT 7.9 K/mm3 (4.0-10.0)
[2023-02-20 08:28] LABS: POTASSIUM 3.8 mmol/L (3.5-5.1)
[2023-02-20 08:41] LABS: CALCIUM 8.9 mg/dL (8.5-10.1)
[2023-02-20 08:42] LABS: ALBUMIN 3.5 g/dl (3.4-5.0); BLOOD UREA NITROGEN 28.3 mg/dL (7-18)
[2023-02-20 08:45] LABS: CREATININE 0.8 mg/dL (0.55-1.3)
[2023-02-20 08:47] LABS: BILIRUBIN,TOTAL 1.2 mg/dL (0.2-1); TOT PROT 5.8 g/dl (6.4-8.2)
[2023-02-20] MEDS ORDERED: SERTRALINE HCL 50 MG TABLET (FP) ONE (12:04)
[2023-02-20] MEDS ORDERED: PREGABALIN 25 MG CAPSULE ONE (12:04)
[2023-02-20] MEDS ORDERED: ASPIRIN COATED 81 MG TABLET.EC ONE (12:04)
[2023-02-20] MEDS ORDERED: LEVOTHYROXINE NA 88 MCG TABLET (FP) ONE (12:04)
[2023-02-20] MEDS: LEVOTHYROXINE NA 88 MCG TABLET (FP) PO SCH (12:05)
[2023-02-20] MEDS: ASPIRIN COATED 81 MG TABLET.EC PO SCH (12:06)
[2023-02-20] MEDS: HEPARIN NA (PORCINE) 5,000 UNITS/ML 1ML VIAL SQ SCH ×2 (12:07→22:00)
[2023-02-20] MEDS: PREGABALIN 25 MG CAPSULE PO SCH ×2 (12:07→22:00)
[2023-02-20] MEDS: CYANOCOBALAMIN 1,000 MCG TABLET (FP) PO SCH (12:07)
[2023-02-20] MEDS: SERTRALINE HCL 25 MG TABLET (FP) PO SCH (12:07)
[2023-02-20] MEDS: FLUDROCORTISONE ACETATE 0.1 MG TABLET (FP) PO SCH (12:07)
[2023-02-20] MEDS ORDERED: LACTATED RINGERS SOLUTION 1,000 ML/1,000 ML INFUS.BAG IV SCH (14:30)
[2023-02-20] MEDS: ACETAMINOPHEN 325 MG TABLET (FP) PO PRN (17:25)
[2023-02-20] MEDS: LISINOPRIL 5 MG TABLET PO SCH (17:25)
[2023-02-20 18:21] LABS: PH,URINE 6.5 (5.0-8.0); URINE APPEARANCE CLEAR; URINE BILIRUBIN NEGATIVE (NEGATIVE); URINE COLOR YELLOW; URINE GLUCOSE (UA) NEGATIVE (NEGATIVE); URINE KETONE NEGATIVE (NEGATIVE); URINE LEUK ESTERASE NEGATIVE (NEGATIVE); URINE NITRITE NEGATIVE (NEGATIVE); URINE PROTEIN NEGATIVE (NEGATIVE); URINE UROBILINOGEN 0.2 mg/dL (0.2-1.0)
[2023-02-20] MEDS: ATORVASTATIN CA 40 MG TABLET (FP) PO SCH (21:59)
[2023-02-20] MEDS: PANTOPRAZOLE 40 MG TABLET PO SCH (22:00)
[2023-02-21] MEDS ORDERED: LISINOPRIL 5 MG TABLET PO ONE (06:03)
[2023-02-21] MEDS: LEVOTHYROXINE NA 88 MCG TABLET (FP) PO SCH (06:24)
[2023-02-21 07:37] LABS: BASO % 1.2 % (0-2.0); EOS % 1.5 % (0-4.5); HEMATOCRIT 39.1 % (32.4-45.2); HEMOGLOBIN 12.9 GM/dL (10.7-15.3); LYMPH % 16.1 % (8-40); MCH 31.2 pg (25.7-33.7); MCHC 33.1 g/dl (32.0-36.0); MEAN CELL VOLUME 94.2 fl (80-96); MEAN PLT VOLUME 8.4 fl (7.5-11.1); MONO % 11.7 % (3.8-10.2); NEUT % 69.5 % (42.8-82.8); PLATELET COUNT 283 10^3/uL (134-434); RBC 4.15 M/mm3 (3.60-5.2); RDW 13.8 % (11.6-15.6); WHITE BLOOD COUNT 6.4 K/mm3 (4.0-10.0)
[2023-02-21 08:01] LABS: POTASSIUM 3.8 mmol/L (3.5-5.1)
[2023-02-21 08:10] LABS: ALBUMIN 3.5 g/dl (3.4-5.0); CALCIUM 8.9 mg/dL (8.5-10.1)
[2023-02-21 08:13] LABS: CREATININE 0.7 mg/dL (0.55-1.3)
[2023-02-21 08:14] LABS: TOT PROT 6.1 g/dl (6.4-8.2)
[2023-02-21 08:15] LABS: BILIRUBIN,TOTAL 1.4 mg/dL (0.2-1)
[2023-02-21] MEDS: PREGABALIN 25 MG CAPSULE PO SCH ×2 (11:04→21:38)
[2023-02-21] MEDS: FLUDROCORTISONE ACETATE 0.1 MG TABLET (FP) PO SCH (11:04)
[2023-02-21] MEDS: SERTRALINE HCL 25 MG TABLET (FP) PO SCH (11:05)
[2023-02-21] MEDS: HEPARIN NA (PORCINE) 5,000 UNITS/ML 1ML VIAL SQ SCH ×2 (11:05→21:37)
[2023-02-21] MEDS: CYANOCOBALAMIN 1,000 MCG TABLET (FP) PO SCH (11:05)
[2023-02-21] MEDS: ASPIRIN COATED 81 MG TABLET.EC PO SCH (11:05)
[2023-02-21] MEDS: LISINOPRIL 5 MG TABLET PO SCH (11:16)
[2023-02-21] MEDS ORDERED: ATENOLOL 25 MG TABLET (FP) PO SCH (13:15)
[2023-02-21] MEDS ORDERED: AZTREONAM 1 GM in DEXTROSE 5%-WATER - 50 ML IVPB ONE (14:15)
[2023-02-21] MEDS ORDERED: SODIUM CHLORIDE 1,000 ML IV SCH (15:00)
[2023-02-21] MEDS: AMPICILLIN - 2 GM in SODIUM CHLORIDE 100 ML IVPB SCH ×2 (15:58→21:34)
[2023-02-21] MEDS: FAMOTIDINE 10 MG TABLET PO SCH (21:37)
[2023-02-21] MEDS: PANTOPRAZOLE 40 MG TABLET PO SCH (21:37)
[2023-02-21] MEDS: ATORVASTATIN CA 40 MG TABLET (FP) PO SCH (21:38)
[2023-02-22] MEDS: AMPICILLIN - 2 GM in SODIUM CHLORIDE 100 ML IVPB SCH ×4 (03:13→21:38)
[2023-02-22] MEDS: LEVOTHYROXINE NA 88 MCG TABLET (FP) PO SCH (06:43)
[2023-02-22 08:11] LABS: EOS % 1.4 % (0-4.5); LYMPH % 15.6 % (8-40); MCH 31.4 pg (25.7-33.7); MCHC 34.4 g/dl (32.0-36.0); MEAN CELL VOLUME 91.2 fl (80-96); MEAN PLT VOLUME 8.2 fl (7.5-11.1); MONO % 11.4 % (3.8-10.2); NEUT % 70.6 % (42.8-82.8); PLATELET COUNT 251 10^3/uL (134-434); RBC 3.83 M/mm3 (3.60-5.2); WHITE BLOOD COUNT 6.1 K/mm3 (4.0-10.0)
[2023-02-22 08:29] LABS: POTASSIUM 3.8 mmol/L (3.5-5.1)
[2023-02-22 08:35] LABS: BLOOD UREA NITROGEN 24.3 mg/dL (7-18); CALCIUM 8.2 mg/dL (8.5-10.1)
[2023-02-22 08:39] LABS: CREATININE 0.7 mg/dL (0.55-1.3)
[2023-02-22 08:40] LABS: BILIRUBIN,TOTAL 1.2 mg/dL (0.2-1); TOT PROT 5.3 g/dl (6.4-8.2)
[2023-02-22] MEDS: ASPIRIN COATED 81 MG TABLET.EC PO SCH (10:56)
[2023-02-22] MEDS: CLOPIDOGREL BISULFATE 75 MG TABLET (FP) PO SCH (10:56)
[2023-02-22] MEDS: FLUDROCORTISONE ACETATE 0.1 MG TABLET (FP) PO SCH (10:56)
[2023-02-22] MEDS: CYANOCOBALAMIN 1,000 MCG TABLET (FP) PO SCH (10:57)
[2023-02-22] MEDS: SERTRALINE HCL 25 MG TABLET (FP) PO SCH (10:57)
[2023-02-22] MEDS: HEPARIN NA (PORCINE) 5,000 UNITS/ML 1ML VIAL SQ SCH ×2 (10:57→21:39)
[2023-02-22] MEDS: PREGABALIN 25 MG CAPSULE PO SCH ×2 (10:57→21:39)
[2023-02-22] MEDS: ATENOLOL 25 MG TABLET (FP) PO SCH (12:43)
[2023-02-22] MEDS: ACETAMINOPHEN 325 MG TABLET (FP) PO PRN (14:24)
[2023-02-22] MEDS: FAMOTIDINE 10 MG TABLET PO SCH (21:39)
[2023-02-22] MEDS: ATORVASTATIN CA 40 MG TABLET (FP) PO SCH (21:39)
[2023-02-22] MEDS: PANTOPRAZOLE 40 MG TABLET PO SCH (21:39)
[2023-02-22] MEDS: ALPRAZolam 0.25 MG TABLET PO PRN (21:40)
[2023-02-23] MEDS: AMPICILLIN - 2 GM in SODIUM CHLORIDE 100 ML IVPB SCH ×3 (03:12→14:18)
[2023-02-23] MEDS: LEVOTHYROXINE NA 88 MCG TABLET (FP) PO SCH (06:23)
[2023-02-23 07:38] LABS: EOS % 2.9 % (0-4.5); HEMATOCRIT 33.5 % (32.4-45.2); HEMOGLOBIN 11.4 GM/dL (10.7-15.3); LYMPH % 15.8 % (8-40); MCH 32.3 pg (25.7-33.7); MCHC 33.9 g/dl (32.0-36.0); MEAN CELL VOLUME 95.2 fl (80-96); MEAN PLT VOLUME 8.5 fl (7.5-11.1); MONO % 10.4 % (3.8-10.2); NEUT % 69.9 % (42.8-82.8); PLATELET COUNT 238 10^3/uL (134-434); RBC 3.52 M/mm3 (3.60-5.2); RDW 13.7 % (11.6-15.6); WHITE BLOOD COUNT 5.7 K/mm3 (4.0-10.0)
[2023-02-23 07:51] LABS: POTASSIUM 3.4 mmol/L (3.5-5.1)
[2023-02-23 07:54] LABS: CALCIUM 7.5 mg/dL (8.5-10.1)
[2023-02-23 07:56] LABS: ALBUMIN 2.8 g/dl (3.4-5.0); BLOOD UREA NITROGEN 20.9 mg/dL (7-18)
[2023-02-23 07:57] LABS: CREATININE 0.6 mg/dL (0.55-1.3)
[2023-02-23 07:59] LABS: TOT PROT 4.9 g/dl (6.4-8.2)
[2023-02-23] MEDS: CYANOCOBALAMIN 1,000 MCG TABLET (FP) PO SCH (10:29)
[2023-02-23] MEDS: ASPIRIN COATED 81 MG TABLET.EC PO SCH (10:29)
[2023-02-23] MEDS: SERTRALINE HCL 25 MG TABLET (FP) PO SCH (10:29)
[2023-02-23] MEDS: CLOPIDOGREL BISULFATE 75 MG TABLET (FP) PO SCH (10:30)
[2023-02-23] MEDS: FLUDROCORTISONE ACETATE 0.1 MG TABLET (FP) PO SCH (10:30)
[2023-02-23] MEDS: PREGABALIN 25 MG CAPSULE PO SCH ×2 (10:30→21:25)
[2023-02-23] MEDS: HEPARIN NA (PORCINE) 5,000 UNITS/ML 1ML VIAL SQ SCH ×2 (10:30→21:25)
[2023-02-23] MEDS: ATENOLOL 25 MG TABLET (FP) PO SCH (12:04)
[2023-02-23] MEDS: ALPRAZolam 0.25 MG TABLET PO PRN (21:24)
[2023-02-23] MEDS: ATORVASTATIN CA 40 MG TABLET (FP) PO SCH (21:25)
[2023-02-23] MEDS: PANTOPRAZOLE 40 MG TABLET PO SCH (21:25)
[2023-02-23] MEDS: FAMOTIDINE 10 MG TABLET PO SCH (21:25)
[2023-02-24] MEDS ORDERED: hydrALAZINE HCL 20 MG/ML VIAL IVPUSH ONE (04:01)
[2023-02-24] MEDS: ACETAMINOPHEN 325 MG TABLET (FP) PO PRN (04:13)
[2023-02-24] MEDS: LEVOTHYROXINE NA 88 MCG TABLET (FP) PO SCH (06:04)
[2023-02-24 07:07] LABS: EOS % 3.2 % (0-4.5); HEMATOCRIT 33.2 % (32.4-45.2); HEMOGLOBIN 11.2 GM/dL (10.7-15.3); LYMPH % 17.8 % (8-40); MCH 31.5 pg (25.7-33.7); MCHC 33.9 g/dl (32.0-36.0); MEAN PLT VOLUME 8.4 fl (7.5-11.1); MONO % 9.9 % (3.8-10.2); NEUT % 68.1 % (42.8-82.8); PLATELET COUNT 238 10^3/uL (134-434); RBC 3.57 M/mm3 (3.60-5.2); RDW 13.6 % (11.6-15.6); WHITE BLOOD COUNT 6.2 K/mm3 (4.0-10.0)
[2023-02-24 07:18] LABS: POTASSIUM 3.1 mmol/L (3.5-5.1)
[2023-02-24 07:22] LABS: ALBUMIN 2.7 g/dl (3.4-5.0); BLOOD UREA NITROGEN 23.4 mg/dL (7-18); MAGNESIUM 1.9 mg/dL (1.8-2.4)
[2023-02-24 07:24] LABS: PHOSPHOROUS 2.4 mg/dL (2.5-4.9)
[2023-02-24 07:25] LABS: CREATININE 0.8 mg/dL (0.55-1.3)
[2023-02-24 07:26] LABS: TOT PROT 4.8 g/dl (6.4-8.2)
[2023-02-24] MEDS ORDERED: POTASSIUM CHLORIDE TABS 20 MEQ TABLET.ER (FP) PO ONE (08:00)
[2023-02-24] MEDS: ASPIRIN COATED 81 MG TABLET.EC PO SCH (09:50)
[2023-02-24] MEDS: PREGABALIN 25 MG CAPSULE PO SCH ×2 (09:50→22:04)
[2023-02-24] MEDS: SERTRALINE HCL 25 MG TABLET (FP) PO SCH (09:52)
[2023-02-24] MEDS: CYANOCOBALAMIN 1,000 MCG TABLET (FP) PO SCH (09:52)
[2023-02-24] MEDS: CLOPIDOGREL BISULFATE 75 MG TABLET (FP) PO SCH (09:52)
[2023-02-24] MEDS: HEPARIN NA (PORCINE) 5,000 UNITS/ML 1ML VIAL SQ SCH ×2 (09:53→22:04)
[2023-02-24] MEDS: FLUDROCORTISONE ACETATE 0.1 MG TABLET (FP) PO SCH (09:54)
[2023-02-24] MEDS: ATENOLOL 25 MG TABLET (FP) PO SCH (12:02)
[2023-02-24] MEDS ORDERED: POLYETHYLENE GLYCOL (HEALTHYLAX) 3350 17 GM PACKET PO ONE (16:45)
[2023-02-24] MEDS: PANTOPRAZOLE 40 MG TABLET PO SCH (22:04)
[2023-02-24] MEDS: ATORVASTATIN CA 40 MG TABLET (FP) PO SCH (22:04)
[2023-02-24] MEDS: FAMOTIDINE 10 MG TABLET PO SCH (22:04)
[2023-02-25] MEDS: LEVOTHYROXINE NA 88 MCG TABLET (FP) PO SCH (06:53)
[2023-02-25 07:39] LABS: BASO % 1.1 % (0-2.0); EOS % 3.5 % (0-4.5); HEMATOCRIT 32.4 % (32.4-45.2); LYMPH % 22.6 % (8-40); MCH 31.8 pg (25.7-33.7); MCHC 33.8 g/dl (32.0-36.0); MEAN CELL VOLUME 93.9 fl (80-96); MEAN PLT VOLUME 8.5 fl (7.5-11.1); MONO % 11.3 % (3.8-10.2); NEUT % 61.5 % (42.8-82.8); PLATELET COUNT 231 10^3/uL (134-434); RBC 3.45 M/mm3 (3.60-5.2); RDW 13.8 % (11.6-15.6); WHITE BLOOD COUNT 5.4 K/mm3 (4.0-10.0)
[2023-02-25 08:01] LABS: POTASSIUM 4.2 mmol/L (3.5-5.1)
[2023-02-25 08:11] LABS: ALBUMIN 2.7 g/dl (3.4-5.0); BLOOD UREA NITROGEN 20.3 mg/dL (7-18)
[2023-02-25 08:12] LABS: CALCIUM 8.2 mg/dL (8.5-10.1)
[2023-02-25 08:13] LABS: PHOSPHOROUS 2.3 mg/dL (2.5-4.9)
[2023-02-25 08:14] LABS: CREATININE 0.7 mg/dL (0.55-1.3)
[2023-02-25 08:15] LABS: BILIRUBIN,TOTAL 0.8 mg/dL (0.2-1); TOT PROT 4.9 g/dl (6.4-8.2)
[2023-02-25 08:16] LABS: MAGNESIUM 2.1 mg/dL (1.8-2.4)
[2023-02-25] MEDS ORDERED: NAPH,MB-DB/K PH,MBDB POWDER PACKET PO ONE (08:38)
[2023-02-25] MEDS: FLUDROCORTISONE ACETATE 0.1 MG TABLET (FP) PO SCH (10:11)
[2023-02-25] MEDS: CLOPIDOGREL BISULFATE 75 MG TABLET (FP) PO SCH (10:15)
[2023-02-25] MEDS: CYANOCOBALAMIN 1,000 MCG TABLET (FP) PO SCH (10:15)
[2023-02-25] MEDS: HEPARIN NA (PORCINE) 5,000 UNITS/ML 1ML VIAL SQ SCH ×2 (10:15→21:52)
[2023-02-25] MEDS: PREGABALIN 25 MG CAPSULE PO SCH ×2 (10:15→21:51)
[2023-02-25] MEDS: SERTRALINE HCL 25 MG TABLET (FP) PO SCH (10:16)
[2023-02-25] MEDS: ASPIRIN COATED 81 MG TABLET.EC PO SCH (10:16)
[2023-02-25] MEDS: ATENOLOL 25 MG TABLET (FP) PO SCH (12:17)
[2023-02-25] MEDS: ACETAMINOPHEN 325 MG TABLET (FP) PO PRN (20:23)
[2023-02-25] MEDS: ATORVASTATIN CA 40 MG TABLET (FP) PO SCH (21:51)
[2023-02-25] MEDS: PANTOPRAZOLE 40 MG TABLET PO SCH (21:51)
[2023-02-25 21:54] VITALS: BP 145/52; PULSE 59; RESP 18; TEMP 98.6
[2023-02-25] MEDS: FAMOTIDINE 10 MG TABLET PO SCH (22:04)
[2023-02-25] MEDS ORDERED: MELATONIN 5 MG TABLETS PO SCH ×2 (22:14→22:30)
[2023-02-26] MEDS ORDERED: MELATONIN 5 MG TABLETS PO SCH (22:00)
== END 2023-02-26 00:10 | DRG 689 ==
LOC: JER 13:16 → JERBED 19:41 → OBSVTOIN 21:52 → J4W 02-20 15:27
PROVIDERS: ADMIT Student in an Organized Health Care Education/Training Program; ATTEND Internal Medicine
DX: N39.0 Urinary tract infection, site not specified (principal); G93.41 Metabolic encephalopathy; I50.32 Chronic diastolic (congestive) heart failure; I95.1 Orthostatic hypotension; E03.9 Hypothyroidism, unspecified; I25.10 Atherosclerotic heart disease of native coronary artery without angina pectoris; K21.9 Gastro-esophageal reflux disease without esophagitis; E78.5 Hyperlipidemia, unspecified; I11.0 Hypertensive heart disease with heart failure; Z86.73 Personal history of transient ischemic attack (TIA), and cerebral infarction without residual deficits; M54.50 Low back pain, unspecified; M48.00 Spinal stenosis, site unspecified; R79.89 Other specified abnormal findings of blood chemistry; I65.29 Occlusion and stenosis of unspecified carotid artery; B95.2 Enterococcus as the cause of diseases classified elsewhere
CPT/HCPCS: 36415; 70450-TC; 70496-TC; 70498-TC; 71045-TC-FY; 80053; 81003; 82962; 83735; 84100; 84484; 85025; 85610; 85730; 86850; 86900; 86901; 87086; 87186; 87635; 93005; 93010; 97116-GP; 97162-GP; 99285-25; G0378; J1644

== ENCOUNTER 2023-04-02 12:15 | Inpatient (IN) | payer OTHER, MEDICARE ==
[2023-04-02 14:00] LABS: INR 0.97 (0.83-1.09); PROTHROMBIN TIME (PATIENT) 11.3 SEC (9.7-13.0)
[2023-04-02 14:03] LABS: ACTIVATED PTT 27.5 SECONDS (25.2-36.5)
[2023-04-02 14:09] LABS: POTASSIUM 3.2 mmol/L (3.5-5.1)
[2023-04-02 14:11] LABS: CALCIUM 8.8 mg/dL (8.5-10.1)
[2023-04-02 14:12] LABS: ALBUMIN 3.4 g/dl (3.4-5.0)
[2023-04-02 14:13] LABS: BASO % 1.1 % (0-2.0); EOS % 1.2 % (0-4.5); HEMATOCRIT 32.1 % (32.4-45.2); HEMOGLOBIN 10.7 GM/dL (10.7-15.3); LYMPH % 12.1 % (8-40); MCH 31.7 pg (25.7-33.7); MCHC 33.4 g/dl (32.0-36.0); MEAN CELL VOLUME 95.1 fl (80-96); MEAN PLT VOLUME 8.2 fl (7.5-11.1); MONO % 10.4 % (3.8-10.2); NEUT % 75.2 % (42.8-82.8); PLATELET COUNT 252 10^3/uL (134-434); RBC 3.37 M/mm3 (3.60-5.2); RDW 14.3 % (11.6-15.6); WHITE BLOOD COUNT 6.1 K/mm3 (4.0-10.0)
[2023-04-02 14:15] LABS: CREATININE 0.9 mg/dL (0.55-1.3)
[2023-04-02 14:16] LABS: BILIRUBIN,TOTAL 0.6 mg/dL (0.2-1)
[2023-04-02 14:20] LABS: N-TERMINAL BNP 1844.6 pg/ml (5-450)
[2023-04-02] MEDS ORDERED: POTASSIUM CHLORIDE ORAL LIQUID 20 MEQ/15 ML PO ONE (14:43)
[2023-04-02] MEDS ORDERED: POTASSIUM CHLORIDE ORAL LIQUID 20 MEQ/15 ML ONE (14:51)
[2023-04-02] MEDS ORDERED: FLUDROCORTISONE ACETATE 0.1 MG TABLET (FP) PO ONE (16:25)
[2023-04-02] MEDS ORDERED: FUROSEMIDE 40 MG/4 ML INJECTABLE VIAL IVPUSH ONE (16:44)
[2023-04-02] MEDS ORDERED: FUROSEMIDE 40 MG/4 ML INJECTABLE VIAL ONE (16:47)
[2023-04-02] MEDS ORDERED: DOXAZOSIN MESYLATE 1 MG TABLET PO ONE (16:50)
[2023-04-02] MEDS ORDERED: POTASSIUM CHLORIDE TABS 20 MEQ TABLET.ER (FP) PO ONE (19:42)
[2023-04-02] MEDS ORDERED: MIDODRINE HCL 5 MG TABLET PO PRN (19:44)
[2023-04-02] MEDS ORDERED: ESTRADIOL APPL VG SCH (19:45)
[2023-04-02 20:34] LABS: URINE APPEARANCE CLEAR; URINE BILIRUBIN NEGATIVE (NEGATIVE); URINE COLOR YELLOW; URINE GLUCOSE (UA) NEGATIVE (NEGATIVE); URINE KETONE NEGATIVE (NEGATIVE); URINE LEUK ESTERASE NEGATIVE (NEGATIVE); URINE NITRITE NEGATIVE (NEGATIVE); URINE PROTEIN NEGATIVE (NEGATIVE); URINE UROBILINOGEN 0.2 mg/dL (0.2-1.0)
[2023-04-02] MEDS ORDERED: PREGABALIN 25 MG CAPSULE ONE (21:03)
[2023-04-02] MEDS ORDERED: FAMOTIDINE 20 MG TABLET ONE (21:04)
[2023-04-02] MEDS ORDERED: ATORVASTATIN CA 20 MG TABLET (FP) ONE (21:04)
[2023-04-02] MEDS: PREGABALIN 25 MG CAPSULE PO SCH (21:19)
[2023-04-02] MEDS: ATORVASTATIN CA 20 MG TABLET (FP) PO SCH (21:19)
[2023-04-02] MEDS: FAMOTIDINE 20 MG TABLET PO SCH (21:19)
[2023-04-02] MEDS: ACETAMINOPHEN 325 MG TABLET (FP) PO SCH (21:19)
[2023-04-02] MEDS ORDERED: hydrALAZINE HCL 20 MG/ML VIAL IVPUSH ONE (21:24)
[2023-04-02] MEDS ORDERED: traMADol HCL 50 MG TABLET ONE (23:54)
[2023-04-02] MEDS: traMADol HCL 50 MG TABLET PO PRN (23:58)
[2023-04-03 06:04] VITALS: BMI 24.7
[2023-04-03 06:21] LABS: BASO % 1.1 % (0-2.0); EOS % 1.7 % (0-4.5); HEMATOCRIT 30.2 % (32.4-45.2); HEMOGLOBIN 10.4 GM/dL (10.7-15.3); LYMPH % 16.2 % (8-40); MCH 32.7 pg (25.7-33.7); MCHC 34.3 g/dl (32.0-36.0); MEAN CELL VOLUME 95.3 fl (80-96); MEAN PLT VOLUME 7.9 fl (7.5-11.1); MONO % 10.8 % (3.8-10.2); NEUT % 70.2 % (42.8-82.8); PLATELET COUNT 222 10^3/uL (134-434); RBC 3.18 M/mm3 (3.60-5.2); RDW 14.1 % (11.6-15.6); WHITE BLOOD COUNT 5.2 K/mm3 (4.0-10.0)
[2023-04-03 06:40] LABS: POTASSIUM 3.1 mmol/L (3.5-5.1)
[2023-04-03 06:44] LABS: CALCIUM 8.4 mg/dL (8.5-10.1)
[2023-04-03 06:45] LABS: ALBUMIN 3.1 g/dl (3.4-5.0); BLOOD UREA NITROGEN 21.7 mg/dL (7-18)
[2023-04-03] MEDS: LEVOTHYROXINE NA 88 MCG TABLET (FP) PO SCH (06:47)
[2023-04-03] MEDS: PANTOPRAZOLE 40 MG TABLET PO SCH (06:47)
[2023-04-03 06:48] LABS: CREATININE 0.8 mg/dL (0.55-1.3); PHOSPHOROUS 2.8 mg/dL (2.5-4.9)
[2023-04-03 06:49] LABS: TOT PROT 5.6 g/dl (6.4-8.2)
[2023-04-03 06:50] LABS: BILIRUBIN,TOTAL 0.7 mg/dL (0.2-1)
[2023-04-03] MEDS ORDERED: POTASSIUM CHLORIDE TABS 20 MEQ TABLET.ER (FP) PO ONE (08:45)
[2023-04-03] MEDS: PREGABALIN 25 MG CAPSULE PO SCH ×2 (09:45→22:19)
[2023-04-03] MEDS: FUROSEMIDE 40 MG/4 ML INJECTABLE VIAL IVPUSH SCH (09:45)
[2023-04-03] MEDS: ASPIRIN COATED 81 MG TABLET.EC PO SCH (09:45)
[2023-04-03] MEDS: SERTRALINE HCL 25 MG TABLET (FP) PO SCH (09:45)
[2023-04-03] MEDS: POTASSIUM CHLORIDE TABS 10 MEQ TABLET.ER (FP) PO SCH (09:45)
[2023-04-03] MEDS: FLUDROCORTISONE ACETATE 0.1 MG TABLET (FP) PO SCH ×2 (09:45→12:41)
[2023-04-03] MEDS: ENOXAPARIN NA (PORCINE) 40 MG/0.4 ML DISP.SYRIN SQ SCH (09:45)
[2023-04-03] MEDS ORDERED: D MANNOSE 500 MG PO SCH (10:00)
[2023-04-03] MEDS ORDERED: PATIENT'S OWN MEDICATION (NON-FORMULARY) (Biotin [Biotin] 1 MG Capsule) PO SCH (10:00)
[2023-04-03] MEDS ORDERED: NITROFURANTOIN MACROCRYSTAL 50 MG CAPSULE (FP) PO SCH (10:00)
[2023-04-03] MEDS: CALCIUM 250MG/VIT-D 125 UNITS 1 COMBO TABLET PO SCH (12:40)
[2023-04-03] MEDS: ATENOLOL 25 MG TABLET (FP) PO SCH (12:40)
[2023-04-03] MEDS: DOXAZOSIN MESYLATE 1 MG TABLET PO SCH (14:31)
[2023-04-03] MEDS ORDERED: DOXAZOSIN MESYLATE 1 MG TABLET PO ONE (16:24)
[2023-04-03] MEDS ORDERED: MIDODRINE HCL 5 MG TABLET PO PRN (17:57)
[2023-04-03] MEDS: ATORVASTATIN CA 20 MG TABLET (FP) PO SCH (22:00)
[2023-04-03] MEDS: ALPRAZolam 0.25 MG TABLET PO PRN (22:19)
[2023-04-03] MEDS: FAMOTIDINE 20 MG TABLET PO SCH (22:19)
[2023-04-03] MEDS: ACETAMINOPHEN 325 MG TABLET (FP) PO SCH (22:21)
[2023-04-04] MEDS ORDERED: amLODIPine BESYLATE 10 MG TABLET (FP) PO ONE ×2 (03:53)
[2023-04-04] MEDS ORDERED: amLODIPine BESYLATE 5 MG TABLET (FP) PO ONE (06:30)
[2023-04-04] MEDS: PANTOPRAZOLE 40 MG TABLET PO SCH (06:43)
[2023-04-04] MEDS: LEVOTHYROXINE NA 88 MCG TABLET (FP) PO SCH (06:44)
[2023-04-04 07:25] LABS: HEMATOCRIT 29.2 % (32.4-45.2); MCH 32.8 pg (25.7-33.7); MCHC 34.3 g/dl (32.0-36.0); MEAN CELL VOLUME 95.4 fl (80-96); PLATELET COUNT 201 10^3/uL (134-434); RBC 3.06 M/mm3 (3.60-5.2); RDW 14.4 % (11.6-15.6); WHITE BLOOD COUNT 5.2 K/mm3 (4.0-10.0)
[2023-04-04 07:32] LABS: POTASSIUM 3.9 mmol/L (3.5-5.1)
[2023-04-04 07:59] LABS: BLOOD UREA NITROGEN 24.3 mg/dL (7-18); CALCIUM 8.7 mg/dL (8.5-10.1)
[2023-04-04 08:02] LABS: CREATININE 0.7 mg/dL (0.55-1.3)
[2023-04-04 08:04] LABS: BILIRUBIN,TOTAL 0.6 mg/dL (0.2-1); TOT PROT 5.4 g/dl (6.4-8.2)
[2023-04-04] MEDS: POTASSIUM CHLORIDE TABS 10 MEQ TABLET.ER (FP) PO SCH (09:36)
[2023-04-04] MEDS: SERTRALINE HCL 25 MG TABLET (FP) PO SCH (09:36)
[2023-04-04] MEDS: FLUDROCORTISONE ACETATE 0.1 MG TABLET (FP) PO SCH ×2 (09:36→12:58)
[2023-04-04] MEDS: PREGABALIN 25 MG CAPSULE PO SCH ×2 (09:36→22:28)
[2023-04-04] MEDS: CALCIUM 250MG/VIT-D 125 UNITS 1 COMBO TABLET PO SCH (09:36)
[2023-04-04] MEDS: ASPIRIN COATED 81 MG TABLET.EC PO SCH (09:36)
[2023-04-04] MEDS: ENOXAPARIN NA (PORCINE) 40 MG/0.4 ML DISP.SYRIN SQ SCH (09:37)
[2023-04-04] MEDS: FUROSEMIDE 40 MG/4 ML INJECTABLE VIAL IVPUSH SCH (09:37)
[2023-04-04] MEDS: DOXAZOSIN MESYLATE 1 MG TABLET PO SCH (12:59)
[2023-04-04] MEDS: ATENOLOL 25 MG TABLET (FP) PO SCH (13:00)
[2023-04-04] MEDS: ATORVASTATIN CA 20 MG TABLET (FP) PO SCH (22:26)
[2023-04-04] MEDS: ALPRAZolam 0.25 MG TABLET PO PRN (22:28)
[2023-04-04] MEDS: ACETAMINOPHEN 325 MG TABLET (FP) PO SCH (22:29)
[2023-04-04] MEDS: FAMOTIDINE 20 MG TABLET PO SCH (22:35)
[2023-04-04] MEDS: traMADol HCL 50 MG TABLET PO PRN (22:38)
[2023-04-05 07:03] LABS: HEMATOCRIT 29.6 % (32.4-45.2); MCH 31.9 pg (25.7-33.7); MCHC 33.7 g/dl (32.0-36.0); MEAN CELL VOLUME 94.5 fl (80-96); MEAN PLT VOLUME 8.2 fl (7.5-11.1); PLATELET COUNT 215 10^3/uL (134-434); RBC 3.13 M/mm3 (3.60-5.2); RDW 14.3 % (11.6-15.6); WHITE BLOOD COUNT 6.1 K/mm3 (4.0-10.0)
[2023-04-05] MEDS: PANTOPRAZOLE 40 MG TABLET PO SCH (07:04)
[2023-04-05] MEDS: LEVOTHYROXINE NA 88 MCG TABLET (FP) PO SCH (07:04)
[2023-04-05 07:21] LABS: POTASSIUM 3.5 mmol/L (3.5-5.1)
[2023-04-05 07:23] LABS: CALCIUM 8.3 mg/dL (8.5-10.1)
[2023-04-05 07:24] LABS: BLOOD UREA NITROGEN 24.7 mg/dL (7-18)
[2023-04-05 07:27] LABS: CREATININE 0.8 mg/dL (0.55-1.3)
[2023-04-05] MEDS: FLUDROCORTISONE ACETATE 0.1 MG TABLET (FP) PO SCH ×2 (09:36→11:36)
[2023-04-05] MEDS: POTASSIUM CHLORIDE TABS 10 MEQ TABLET.ER (FP) PO SCH (09:36)
[2023-04-05] MEDS: PREGABALIN 25 MG CAPSULE PO SCH ×2 (09:36→21:18)
[2023-04-05] MEDS: ENOXAPARIN NA (PORCINE) 40 MG/0.4 ML DISP.SYRIN SQ SCH (09:36)
[2023-04-05] MEDS: ASPIRIN COATED 81 MG TABLET.EC PO SCH (09:36)
[2023-04-05] MEDS: SERTRALINE HCL 25 MG TABLET (FP) PO SCH (09:36)
[2023-04-05] MEDS: CALCIUM 250MG/VIT-D 125 UNITS 1 COMBO TABLET PO SCH (09:37)
[2023-04-05] MEDS: FUROSEMIDE 40 MG/4 ML INJECTABLE VIAL IVPUSH SCH (09:37)
[2023-04-05] MEDS: ATENOLOL 25 MG TABLET (FP) PO SCH (11:22)
[2023-04-05] MEDS: DOXAZOSIN MESYLATE 1 MG TABLET PO SCH (11:40)
[2023-04-05] MEDS ORDERED: FUROSEMIDE 40 MG/4 ML INJECTABLE VIAL IVPUSH ONE (15:30)
[2023-04-05] MEDS: FAMOTIDINE 20 MG TABLET PO SCH (21:18)
[2023-04-05] MEDS: ATORVASTATIN CA 20 MG TABLET (FP) PO SCH (21:18)
[2023-04-05] MEDS: ACETAMINOPHEN 325 MG TABLET (FP) PO SCH (21:18)
[2023-04-06] MEDS: LEVOTHYROXINE NA 88 MCG TABLET (FP) PO SCH (06:00)
[2023-04-06] MEDS: PANTOPRAZOLE 40 MG TABLET PO SCH ×2 (06:00→06:35)
[2023-04-06 07:26] LABS: HEMATOCRIT 28.6 % (32.4-45.2); HEMOGLOBIN 9.8 GM/dL (10.7-15.3); MCH 32.5 pg (25.7-33.7); MCHC 34.4 g/dl (32.0-36.0); MEAN CELL VOLUME 94.6 fl (80-96); MEAN PLT VOLUME 8.4 fl (7.5-11.1); PLATELET COUNT 208 10^3/uL (134-434); RBC 3.02 M/mm3 (3.60-5.2); RDW 14.3 % (11.6-15.6); WHITE BLOOD COUNT 6.2 K/mm3 (4.0-10.0)
[2023-04-06 07:28] LABS: POTASSIUM 3.6 mmol/L (3.5-5.1)
[2023-04-06 07:30] LABS: BLOOD UREA NITROGEN 32.8 mg/dL (7-18); CALCIUM 8.7 mg/dL (8.5-10.1); MAGNESIUM 2.2 mg/dL (1.8-2.4)
[2023-04-06 07:33] LABS: PHOSPHOROUS 3.8 mg/dL (2.5-4.9)
[2023-04-06] MEDS: PREGABALIN 25 MG CAPSULE PO SCH ×2 (09:54→21:28)
[2023-04-06] MEDS: POTASSIUM CHLORIDE TABS 10 MEQ TABLET.ER (FP) PO SCH (09:54)
[2023-04-06] MEDS: SERTRALINE HCL 25 MG TABLET (FP) PO SCH (09:54)
[2023-04-06] MEDS: FLUDROCORTISONE ACETATE 0.1 MG TABLET (FP) PO SCH ×2 (09:54→11:03)
[2023-04-06] MEDS: ASPIRIN COATED 81 MG TABLET.EC PO SCH (09:54)
[2023-04-06] MEDS: CALCIUM 250MG/VIT-D 125 UNITS 1 COMBO TABLET PO SCH (09:55)
[2023-04-06] MEDS: ENOXAPARIN NA (PORCINE) 40 MG/0.4 ML DISP.SYRIN SQ SCH (09:55)
[2023-04-06] MEDS: FUROSEMIDE 40 MG/4 ML INJECTABLE VIAL IVPUSH SCH (09:55)
[2023-04-06] MEDS: ATENOLOL 25 MG TABLET (FP) PO SCH (11:02)
[2023-04-06] MEDS: DOXAZOSIN MESYLATE 1 MG TABLET PO SCH (11:03)
[2023-04-06] MEDS: FAMOTIDINE 20 MG TABLET PO SCH (21:27)
[2023-04-06] MEDS: ATORVASTATIN CA 20 MG TABLET (FP) PO SCH (21:28)
[2023-04-06] MEDS: ACETAMINOPHEN 325 MG TABLET (FP) PO SCH (21:28)
[2023-04-07] MEDS: MELATONIN 5 MG TABLETS PO PRN ×2 (01:51→21:23)
[2023-04-07] MEDS: LEVOTHYROXINE NA 88 MCG TABLET (FP) PO SCH (06:34)
[2023-04-07] MEDS: PANTOPRAZOLE 40 MG TABLET PO SCH (06:34)
[2023-04-07] MEDS: FLUDROCORTISONE ACETATE 0.1 MG TABLET (FP) PO SCH ×2 (08:52→12:27)
[2023-04-07] MEDS: ENOXAPARIN NA (PORCINE) 40 MG/0.4 ML DISP.SYRIN SQ SCH (09:22)
[2023-04-07] MEDS: ASPIRIN COATED 81 MG TABLET.EC PO SCH (09:23)
[2023-04-07] MEDS: CALCIUM 250MG/VIT-D 125 UNITS 1 COMBO TABLET PO SCH (09:23)
[2023-04-07] MEDS: PREGABALIN 25 MG CAPSULE PO SCH ×2 (09:23→21:23)
[2023-04-07] MEDS: FUROSEMIDE 40 MG/4 ML INJECTABLE VIAL IVPUSH SCH (09:23)
[2023-04-07] MEDS: SERTRALINE HCL 25 MG TABLET (FP) PO SCH (09:23)
[2023-04-07] MEDS: POTASSIUM CHLORIDE TABS 10 MEQ TABLET.ER (FP) PO SCH (09:23)
[2023-04-07] MEDS: ATENOLOL 25 MG TABLET (FP) PO SCH (12:26)
[2023-04-07] MEDS: DOXAZOSIN MESYLATE 1 MG TABLET PO SCH (12:27)
[2023-04-07 18:29] VITALS: RESP 18
[2023-04-07] MEDS: ATORVASTATIN CA 20 MG TABLET (FP) PO SCH (21:23)
[2023-04-07] MEDS: FAMOTIDINE 20 MG TABLET PO SCH (21:23)
[2023-04-07] MEDS: ACETAMINOPHEN 325 MG TABLET (FP) PO SCH (21:23)
[2023-04-08] MEDS: PANTOPRAZOLE 40 MG TABLET PO SCH (06:13)
[2023-04-08] MEDS: LEVOTHYROXINE NA 88 MCG TABLET (FP) PO SCH (06:13)
[2023-04-08] MEDS: FLUDROCORTISONE ACETATE 0.1 MG TABLET (FP) PO SCH ×2 (08:10→11:55)
[2023-04-08] MEDS: ENOXAPARIN NA (PORCINE) 40 MG/0.4 ML DISP.SYRIN SQ SCH (10:02)
[2023-04-08] MEDS: PREGABALIN 25 MG CAPSULE PO SCH (10:03)
[2023-04-08] MEDS: CALCIUM 250MG/VIT-D 125 UNITS 1 COMBO TABLET PO SCH (10:03)
[2023-04-08] MEDS: ASPIRIN COATED 81 MG TABLET.EC PO SCH (10:03)
[2023-04-08] MEDS: POTASSIUM CHLORIDE TABS 10 MEQ TABLET.ER (FP) PO SCH (10:03)
[2023-04-08] MEDS: SERTRALINE HCL 25 MG TABLET (FP) PO SCH (10:03)
[2023-04-08 11:22] VITALS: BP 137/68; PULSE 56; TEMP 97.5
[2023-04-08] MEDS: DOXAZOSIN MESYLATE 1 MG TABLET PO SCH (11:56)
[2023-04-08] MEDS: ATENOLOL 25 MG TABLET (FP) PO SCH (11:56)
== END 2023-04-08 13:30 | DRG 291 ==
LOC: JER 12:15 → JERBED 16:33 → OBSVTOIN 19:40 → J4W 04-03 05:02
PROVIDERS: ADMIT Internal Medicine; ATTEND Internal Medicine
DX: I11.0 Hypertensive heart disease with heart failure (principal); I50.33 Acute on chronic diastolic (congestive) heart failure; I25.10 Atherosclerotic heart disease of native coronary artery without angina pectoris; E03.9 Hypothyroidism, unspecified; R91.1 Solitary pulmonary nodule; Z86.73 Personal history of transient ischemic attack (TIA), and cerebral infarction without residual deficits; I95.1 Orthostatic hypotension
CPT/HCPCS: 0241U-QW; 36415; 71045-TC-FY; 71275-TC; 80048; 80053; 81003; 82550; 83735; 83880; 84100; 84484; 85025; 85027; 85610; 85730; 86850; 86900; 86901; 87086; 93005; 93010; 94010; 94761; 97116-GP; 97162-GP; 99285-25; G0378; Q9967